=== PATIENT | female | born 1940 | race Caucasian/White ===

== ENCOUNTER → 2017-01-28 | Outpatient (CLI) | payer OTHER ==
[2014-03-01 11:06] VITALS: BP 150/65
--- NOTE | 2017-01-29 15:09 | MG ---
HISTORY: SCREENING Comparison: August 01, 2014 and December 19, 2015 FINDINGS: Bilateral CC and MLO projections of the right and left breast were obtained. Scattered fibroglandul ar tissue is seen to be present without significant interval change. No suspicious architectural di stortion, mass or clustered microcalcifications can be observed to suggest malignancy. No skin thic kening or nipple retraction is appreciated. No pathological lymphadenopathy can be identified. Gaetano ign-appearing calcifications are noted within the right and left breast. A biopsy clip is noted on t he right. IMPRESSION: NO RADIOGRAPHIC EVIDENCE OF MALIGNANCY. ACR CATEGORY 2 - benign findings. FOLLOW-UP EXAM 1 YEAR. Diagnostic CAD was utilized and reviewed. * 0 (ZERO) - ASSESSMENT INCOMPLETE; ADDITIONAL IMAGING IS NEEDED. * 1/1 (ONE) - NEGATIVE. * 2/II (TWO) - BENIGN FINDINGS. * 3/III (THREE) - PROBABLY BENIGN FINDING; SHORT INTERVAL FOLLOW-UP SUGGESTED. * 4/IV (FOUR) - SUSPICIOUS ABNORMALITY; BIOPSY SHOULD BE CONSIDERED. * 5/V (FIVE) - HIGHLY SUSPICIOUS OF MALIGNANCY; BIOPSY SHOULD BE PERFORMED. A NEGATIVE X-RAY REPORT SHOULD NOT DELAY BIOPSY IF A DOMINANT OR CLINICALLY SUSPICIOUS MASS IS PRESENT; 4 TO 8 PERCENT OF CANCERS ARE NOT IDENTIFIED BY X-RAY. A NEG ATIVE REPORT MAY REINFORCE THE CLINICAL IMPRESSION. ADENOSIS AND DENSE BREASTS MAY OBSCURE AN UNDER LYING NEOPLASM. Reported By:
== END ==
LOC: RAD 14:41
PROVIDERS: ATTEND Specialist
DX: Z12.31 Encounter for screening mammogram for malignant neoplasm of breast (principal)
CPT/HCPCS: 77067

== ENCOUNTER → 2017-02-23 | Outpatient (CLI) | payer OTHER ==
[2014-03-01 11:06] VITALS: BP 150/65
--- NOTE | 2017-02-24 06:45 | RAD ---
HISTORY: Chronic cough Study: Chest two-view Comparison: CT chest May 02, 2016 Findings: The trachea is midline. The cardiac silhouette is upper limits normal in size. The left ventricle i s prominent.. The lungs are clear without focal infiltrate or effusion. The bony thorax is unremar kable with the exception of multilevel degenerative disc disease in the thoracic spine.. IMPRESSION: 1. No acute cardiopulmonary disease. Reported By:
== END ==
LOC: RAD 20:37
PROVIDERS: ATTEND Family Medicine
DX: R05 Cough (principal)
CPT/HCPCS: 71020

== ENCOUNTER 2018-02-02 18:24 | Observation (INO) | payer BC, OTHER ==
--- NOTE | 2018-02-02 18:34 | DR.GENAD ---
HPI - PCP Primary Care Physician: ryann - Complaint/Symptoms Chief Complaint Doctors Comments: Patient presents to the ED via EMS with complaint that she fell while at home. Upon of EMS her BP systolic was 46. She was given bolus of NS BP in ED 123/57. Patient is alert in no acute distress. She denies a history of cardiac disease. She complained of bilateral hip pain. Family member reporst that patient has a history of dyspnea. Chief Complaint:: "low bp feeling weak" - Source History Provided: Patient - Mode of Arrival Mode of Arrival: EMS - Timing Onset of Chief Complaint: 02/02/18 PMH - PMH Past Medical History: Yes Past Medical History: Arthritis, Hypertension Past Surgical History: Yes - Family History History of Family Medical Conditions: Yes Family Medical History: Hypertension - Social History Does patient currently use any type of tobacco product: No Have you used tobacco products in the last 12 months: No Type of Tobacco Use: None Does any household member use tobacco: No Alcohol Use: None Do you use any recreational Drugs:: No Lives With: Family Lives Where: Home - infectious screening In the last 2 months have you had wt loss of >10#?: NO Have you had fever, night sweats or hemotysis?: No Have you traveled outside the country in the last 6 months?: No Isolation: Standard ROS - Review of Systems Eyes: No Symptoms Reported ENTM: No Symptoms Reported Respiratoy: No Symptoms Reported Cardiovascular: No Symptoms Reported Gastrointestinal/Abdominal: No Symptoms Reported Genitourinary: No Symptoms Reported Neurological: No Symptoms Reported Musculoskeletal: No Symptoms Reported Integumentary: No Symptoms Reported Hematologic/Lymphatic: No Symptoms Reported Endocrine: No Symptoms Reported Psychiatric: No Symptoms Reported All Other Systems: Reviewed and Negative PE - Vital Signs Vitals: Temperature 98.1 F Pulse Rate [Apical] 92 Pulse Rate 86 Respiratory Rate 24 Blood Pressure [Right Arm] 112/57 Blood Pressure 123/57 O2 Sat by Pulse Oximetry 97 - General Limitations: No Limitations General Appearance: Alert, In No Apparent Distress - Head Head Exam: Normal Inspection, Atraumatic - Eyes Eye exam: Normal Appearance, PERRL, EOMI - ENT ENT Exam: Normal Exam External Ear Exam: Normal External Inspection TM/Canal Exam: Bilateral Normal Nose Exam: Normal Nose Exam Mouth Exam: Normal Inspection Throat Exam: Normal Inspection - Neck Neck Exam: Normal Inspection, Full ROM - Chest Chest Inspection: Normal Inspection, Symmetric Chest Wall Rise - Respiratory Respiratory Exam: Normal Lung Sounds Bilat Respiratory Exam: Bilateral Clear to Auscultation - Cardiovascular Cardiovascular Exam: Regular Rate, Normal Rhythm - Abdominal Exam Abdominal Exam: Normal Inspection, Normal Bowel Sounds Abdominal Tenderness: negative: RUQ, RLQ, LUQ, LLQ, Epigastrium, Suprapubic, Diffuse, Mild, Moderate, Severe, Other - Extremities Extremities Exam: Normal Inspection, Full ROM - Back Back Exam: Normal Inspection - Neurologic Neurological Exam: Alert, Oriented X3, CN II-XII Intact - Psychiatric Psychiatric Exam: Normal Affect, Normal Mood Course - Reevaluation 1st: Improved - Consultation Called: 21:40 (Dr Trotter agreed to admit for further evaluation) ROR - Labs Reviewed Laboratory Results Reviewed?: Yes (low sodiuma, D Dimer 612 ) Result Diagrams: 02/02/18 18:43 02/02/18 18:43 Laboratory: WBC 14.4 X10^3/uL (3.6-10.0) H 02/02/18 18:43 RBC 4.28 X10^6/uL (3.5-5.4) 02/02/18 18:43 Hgb 11.5 g/dL (12.0-16.0) L 02/02/18 18:43 Hct 35.4 % (36.0-47.0) L 02/02/18 18:43 MCV 82.9 fL (80.0-100.0) 02/02/18 18:43 MCH 26.9 pg (27.0-34.0) L 02/02/18 18:43 MCHC 32.5 g/dL (33.0-35.0) L 02/02/18 18:43 RDW 16.4 % (11.6-16.5) 02/02/18 18:43 Plt Count 261 X10^3/uL (150.0-450.0) 02/02/18 18:43 MPV 9.0 fL (7.4-11.0) 02/02/18 18:43 Neut % (Auto) 84.0 % (42.0-75.0) H 02/02/18 18:43 Lymph % (Auto) 7.8 % (21.0-51.0) L 02/02/18 18:43 [place] % (Auto) 7.4 % (0.0-13.0) 02/02/18 18:43 Eos % (Auto) 0.2 % (0.9-2.9) L 02/02/18 18:43 Baso % (Auto) 0.6 % (0.2-1.0) 02/02/18 18:43 Neut # (Auto) 12.1 x10^3/uL (2.2-4.8) H 02/02/18 18:43 Lymph # (Auto) 1.1 X10^3/uL (1.3-2.9) L 02/02/18 18:43 [place] # (Auto) 1.1 x10^3/uL (0.3-0.8) H 02/02/18 18:43 Eos # (Auto) 0.0 x10^3/uL (0.0-0.2) 02/02/18 18:43 Baso # (Auto) 0.1 X10^3/uL (0.0-0.1) 02/02/18 18:43 Absolute Nucleated RBC 0.0 /100WBC 02/02/18 18:43 D-Dimer 612 ng/mL (0-400) H* 02/02/18 18:43 Sodium 131 mmol/L (136-145) L 02/02/18 18:43 Corrected Sodium TNP 02/02/18 18:43 Potassium 3.9 mmol/L (3.5-5.1) 02/02/18 18:43 Chloride 96 mmol/L (98-107) L 02/02/18 18:43 Carbon Dioxide 25.0 mmol/L (21-32) 02/02/18 18:43 BUN 17 mg/dL (7-18) 02/02/18 18:43 Creatinine 1.37 mg/dL (0.55-1.02) H 02/02/18 18:43 Est GFR (MDRD) Af Amer 48 (>60) L 02/02/18 18:43 Est GFR (MDRD) Non-Af 39 (>60) L 02/02/18 18:43 Glucose 105 mg/dL (65-99) H 02/02/18 18:43 Calcium 8.1 mg/dL (8.5-10.1) L 02/02/18 18:43 Corrected Calcium 8.9 mg/dL (8.5-10.1) 02/02/18 18:43 Magnesium 1.7 mg/dL (1.7-2.9) 02/02/18 18:43 Total Bilirubin 0.50 mg/dL (0.2-1.0) 02/02/18 18:43 AST 44 Units/L (15-37) H 02/02/18 18:43 ALT 35 Units/L (12-78) 02/02/18 18:43 Alkaline Phosphatase 109 Units/L (46-116) 02/02/18 18:43 Creatine Kinase 105 Units/L (26-192) 02/02/18 18:43 CK-MB (CK-2) 1.0 ng/mL (0-4.0) 02/02/18 18:43 CK/CKMB % Calc 1.0 % (<4) 02/02/18 18:43 Troponin I < 0.02 ng/mL (0-1.5) 02/02/18 18:43 Total Protein 7.0 g/dL (6.4-8.2) 02/02/18 18:43 Albumin 3.0 g/dL (3.4-5.0) L 02/02/18 18:43 Globulin 4.0 g/dL (2.5-4.5) 02/02/18 18:43 Albumin/Globulin Ratio 0.8 Ratio (1.1-2.1) L 02/02/18 18:43 - XRAY XRAY Interpreted by: Radiologist (CT Brain w/o: Age related cortical atrophy and chronic small vessel ischemic changes.. No acute intraparenchymal hemorrhage or mass can be identified. If clinical concern exists for acute ischemia/infarction, MRI brain is more sensitive.) - Diagnosis Discharge Problem: Hyponatremia, D-dimer, elevated Syncope Qualifiers: Syncope type: unspecified Qualified Code(s): R55 - Syncope and collapse Dyspnea Qualifiers: Dyspnea type: shortness of breath Qualified Code(s): R06.02 - Shortness of breath; R06.00 - Dyspnea, unspecified; R06.01 - Orthopnea - Discharge Plan Condition: Stable - Follow ups/Referrals Follow ups/Referrals: LIZETTE JORDAN [Primary Care Provider] - 3 days - Instructions
[2018-02-02 18:51] LABS: BASOPHILS # (AUTO) 0.1 X10^3/uL (0.0-0.1); BASOPHILS % (AUTO) 0.6 % (0.2-1.0); EOSINOPHILS % (AUTO) 0.2 % (0.9-2.9); HEMATOCRIT 35.4 % (36.0-47.0); HEMOGLOBIN 11.5 g/dL (12.0-16.0); LYMPHOCYTES # (AUTO) 1.1 X10^3/uL (1.3-2.9); LYMPHOCYTES % (AUTO) 7.8 % (21.0-51.0); MEAN CORPUSCULAR HEMOGLOBIN 26.9 pg (27.0-34.0); MEAN CORPUSCULAR HGB CONC 32.5 g/dL (33.0-35.0); MEAN CORPUSCULAR VOLUME 82.9 fL (80.0-100.0); MONOCYTES # (AUTO) 1.1 x10^3/uL (0.3-0.8); MONOCYTES % (AUTO) 7.4 % (0.0-13.0); NEUTROPHILS # (AUTO) 12.1 x10^3/uL (2.2-4.8); PLATELET COUNT 261 X10^3/uL (150.0-450.0); RED BLOOD COUNT 4.28 X10^6/uL (3.5-5.4); RED CELL DISTRIBUTION WIDTH 16.4 % (11.6-16.5); WHITE BLOOD COUNT 14.4 X10^3/uL (3.6-10.0)
[2018-02-02 19:07] LABS: BLOOD UREA NITROGEN 17 mg/dL (7-18); CALCIUM 8.1 mg/dL (8.5-10.1); CHLORIDE 96 mmol/L (98-107); CREATININE 1.37 mg/dL (0.55-1.02); SODIUM 131 mmol/L (136-145); TROPONIN I < 0.02 ng/mL (0-1.5); eGFR BLACK RACES 48 (>60); eGFR NON BLACK RACES 39 (>60)
[2018-02-02 19:11] LABS: ALANINE AMINOTRANSFERASE 35 Units/L (12-78); ALKALINE PHOSPHATASE 109 Units/L (46-116); ASPARTATE AMINO TRANSFERASE 44 Units/L (15-37); COR CA(FOR HYPOALB) 8.9 mg/dL (8.5-10.1); CREATINE KINASE 105 Units/L (26-192); MAGNESIUM 1.7 mg/dL (1.7-2.9)
--- NOTE | 2018-02-02 19:26 | CT ---
HISTORY: Hypertensive status post fall. Study: CT brain without contrast Comparison: None. Technique: Multiple axial images of the brain were obtained from the skull base to the vertex without administra tion of IV contrast. Dose reduction techniques including Automated Exposure Control (AEC) and adjust ment of mA and kV were utilized. Findings: Age-related cortical atrophy and chronic small vessel ischemic changes. No acute intraparenchymal hem orrhage or mass can be identified. No extra-axial fluid collections are seen. No alteration in the attenuation of the brain parenchyma can be identified to suggest acute or subacute ischemic change. The ventricular system is symmetric and nondilated. The extracranial structures are grossly unremark able. IMPRESSION: No obvious acute intracranial pathology. If clinical concern exists for acute ischemia/in farction, MRI brain is more sensitive. Reported By:
--- NOTE | 2018-02-02 20:57 | RAD ---
HISTORY: Bilateral hip pain status post fall. Study: Two views of the bilateral hips. Comparison: None. Findings: Mild osteoarthritis of the bilateral hips. Degenerative changes are also seen of the bilateral SI hayder nts and visualized lumbar spine. No acute cortical disruption or dislocation can be identified. No s ignificant soft tissue swelling or injury can be seen. IMPRESSION: No acute osseous abnormality. Reported By:
--- NOTE | 2018-02-02 22:06 | RAD ---
AP chest. Indication: Hypertension with fall. Comparison: 02/23/2017. Findings: There is mild scolios is of the thoracic spine with curvature of the right. Heart size is mildly enlarged. Chronic intersti tial lung change are noted without focal airspace opacity, pleural effusion or pneumothorax. No acute osseous abnormality. Moderate-size sliding hiatal hernia. Impression: 1.Stable cardiomegaly and chronic interstitial lung changes without acute airspace disease or CHF. 2. Moderate-sized hiatal hernia. Reported By:
[2018-02-02 22:11] LABS: BILIRUBIN,URINE NEGATIVE (NEGATIVE); BLOOD/HEMOGLOBIN,URINE NEGATIVE (NEGATIVE); GLUCOSE, URINE NEGATIVE (NEGATIVE); KETONES,URINE NEGATIVE (NEGATIVE); LEUKOCYTE ESTERASE ,URINE NEGATIVE (NEGATIVE); NITRITES,URINE NEGATIVE (NEGATIVE); PROTEIN,URINE NEGATIVE (NEGATIVE); UROBILINOGEN,URINE NORMAL (NORMAL)
[2018-02-02 22:12] LABS: APPEARANCE,URINE CLEAR (CLEAR); COLOR,URINE YELLOW (YELLOW)
[2018-02-02] MEDS ORDERED: ZOFRAN INJ 4 MG VIAL IVP PRN (22:22)
[2018-02-02] MEDS ORDERED: DEMEROL INJ IVP PRN (22:55)
[2018-02-02] MEDS ORDERED: XANAX PO PRN (22:56)
[2018-02-02] MEDS: NS 1000 ML 1,000 ML IV SCH (23:37)
[2018-02-03 00:58] VITALS: BMI 28.0
[2018-02-03 05:51] LABS: BASOPHILS % (AUTO) 0.3 % (0.2-1.0); EOSINOPHILS % (AUTO) 0.3 % (0.9-2.9); HEMATOCRIT 32.1 % (36.0-47.0); HEMOGLOBIN 10.7 g/dL (12.0-16.0); LYMPHOCYTES # (AUTO) 1.7 X10^3/uL (1.3-2.9); LYMPHOCYTES % (AUTO) 13.5 % (21.0-51.0); MEAN CORPUSCULAR HEMOGLOBIN 27.4 pg (27.0-34.0); MEAN CORPUSCULAR HGB CONC 33.3 g/dL (33.0-35.0); MEAN CORPUSCULAR VOLUME 82.2 fL (80.0-100.0); MEAN PLATELET VOLUME 9.3 fL (7.4-11.0); MONOCYTES # (AUTO) 0.9 x10^3/uL (0.3-0.8); MONOCYTES % (AUTO) 7.2 % (0.0-13.0); NEUTROPHILS # (AUTO) 9.7 x10^3/uL (2.2-4.8); NEUTROPHILS % (AUTO) 78.7 % (42.0-75.0); PLATELET COUNT 243 X10^3/uL (150.0-450.0); RED CELL DISTRIBUTION WIDTH 16.4 % (11.6-16.5); WHITE BLOOD COUNT 12.3 X10^3/uL (3.6-10.0)
[2018-02-03 05:54] LABS: ALANINE AMINOTRANSFERASE 30 Units/L (12-78); ALBUMIN 2.6 g/dL (3.4-5.0); ALKALINE PHOSPHATASE 97 Units/L (46-116); ASPARTATE AMINO TRANSFERASE 27 Units/L (15-37); BLOOD UREA NITROGEN 11 mg/dL (7-18); CARBON DIOXIDE 26.6 mmol/L (21-32); CHLORIDE 100 mmol/L (98-107); COR CA(FOR HYPOALB) 9.1 mg/dL (8.5-10.1); CREATININE 0.86 mg/dL (0.55-1.02); SODIUM 135 mmol/L (136-145); TOTAL PROTEIN 6.4 g/dL (6.4-8.2); eGFR BLACK RACES > 60 (>60); eGFR NON BLACK RACES > 60 (>60)
[2018-02-03] MEDS: NEURONTIN CAP 300 MG PO SCH ×3 (06:33→21:06)
[2018-02-03] MEDS: MILK OF MAGNESIA PO SCH ×2 (06:33→21:29)
[2018-02-03] MEDS: COLACE CAP 100 MG PO SCH ×2 (06:33→21:29)
[2018-02-03] MEDS: PREVACID PO SCH ×2 (07:45→21:06)
[2018-02-03] MEDS ORDERED: PATIENT'S HOME MEDICATION (Celecoxib [Celecoxib] 200 MG) PO SCH (09:00)
[2018-02-03] MEDS ORDERED: [UNRECOGNIZED DRUG - OTHER] PO SCH (09:00)
[2018-02-03] MEDS ORDERED: HYDROCHLOROTHIAZIDE PO SCH (09:00)
[2018-02-03] MEDS ORDERED: LOSARTAN PO SCH (09:00)
[2018-02-03] MEDS: HYZAAR 50/12.5 MG PO SCH (09:27)
[2018-02-03] MEDS: CELEBREX PO SCH ×2 (09:27→21:06)
[2018-02-03] MEDS: COREG TAB 6.25 MG PO SCH ×2 (09:27→21:05)
[2018-02-03] MEDS: NS 1000 ML 1,000 ML IV SCH (12:48)
--- NOTE | 2018-02-03 15:55 | CT ---
HISTORY: Elevated D-dimer. Rule out PE. Study: CT chest with contrast Comparison: Chest x-ray dated February 02, 2018. Technique: Multiple axial images of the chest were obtained from the thoracic inlet to the upper abdo men after the administration of IV contrast. MIP images were obtained. Dose reduction techniques incl uding Automated Exposure Control (AEC) and adjustment of mA and kV were utilized. Findings: The mediastinum does not demonstrate significant pathological lymphadenopathy. There is no paracardi al effusion observed. The thoracic aorta is normal in its contour without evidence for aneurysmal di latation. The central pulmonary arterial system does not demonstrate central filling defects to sugg est pulmonary emboli. Cardiomegaly. Stents are seen within the left anterior descending coronary gagan ry. Biapical scarring. Bibasilar scarring versus atelectasis. No obvious pulmonary nodule, mass, pleural effusion, focal consolidation, or pneumothorax. Moderate-sized hiatal hernia. Remaining upper abdomin al structures are unremarkable. Moderate to severe degenerative changes of the spine. No aggressive o sseous lesions. IMPRESSION: 1. No CT evidence of acute thoracic pathology or pulmonary embolus. 2. Other chronic findings as above. Reported By:
[2018-02-03] MEDS ORDERED: K-LYTE EFFERVESCENT PO PRN (21:25)
[2018-02-03] MEDS ORDERED: K-RIDER 10 MEQ/NS 100 ML 10 MEQ/100 ML BAG IV PRN (21:25)
[2018-02-03] MEDS ORDERED: POTASSIUM CHL 40 MEQ/NS 0.45% 500 ML IV PRN (21:25)
[2018-02-03] MEDS ORDERED: POTASSIUM CHL 60 MEQ/NS 0.45% 500 ML IV PRN (21:25)
[2018-02-03] MEDS ORDERED: POTASSIUM CHLORIDE LIQ 20 MEQ UDC PO PRN (21:25)
--- NOTE | 2018-02-03 21:45 | DR.H&P ---
H&P - History & Physical for Day of: H&P Date: 02/02/18 - Chief Complaint Chief Complaint: FALL, GENERALIZED WEAKNESS, SHORT OF BREATH - Allergies Allergies/Adverse Reactions: Allergies Allergy/AdvReac Type Severity Reaction Status Date / Time codeine Allergy Verified 02/02/18 21:24 - History of Present Illness History of Present Illness: is a 78 year old patient of who presented to the emergency room via EMS with reports of a fall at home. Patient reports generalized weakness and dizziness throughout the day. EMS reports that patients systolic blood pressure was in the 40s on their arrival. Patient states her blood pressure has been decreased recently. She also reports bilateral hip pain following the fall. Medical History includes: Cataracts, Hypertension, IBS, Constipation, Muscle Weakness, Arthritis, DDD, Depression, and Dyspnea. On arrival to the emergency room, vitals were 98.1, 86 , 16, 99% 2L NC, 123/57. Labs were obtained. Abnormal Labs include the following : WBC 14.4, Hgb 11.5, Hct 35.4, MCH 26.9, MCHC 32.5, D-Dimer 612, Sodium 131, Chloride 96, Creatinine 1.37, GFR af 48, GFR non 39, Glucose 105, Calcium 8.1, AST 44, Albumin 3.0, A/G Ratio 0.8. EKG revealed: Sinus Rhythm, Rate=86. Hip X- Ray reports: No acute osseous abnormality. A Chest X-Ray was obtained and reported: Stable cardiomegaly and chronic interstitial lung changes without acute airspace disease or CHF. Moderate-sized hiatal hernia. Brain CT reported : No obvious acute intracranial pathology. If clinical concern exists for acute ischemia/infarction, MRI brain is more sensitive. Patient admitted to the hospital as observation for a syncopal episode, hyponatremia, and to rule out a pulmonary embolism. We plan to obtain a chest CT with contrast in the morning and will follow up with am labs. - Past Medical History Past Medical History: Arthritis, Hypertension - Past Surgical History Surgical History: Hysterectomy, Tonsillectomy - Family History Family Medical History: Hypertension - Social History Does patient currently use any type of tobacco product: No Have you used tobacco products in the last 12 months: No Type of Tobacco Use: None Does any household member use tobacco: No Alcohol Use: None Drug Use: None - Medications Home Medications: Alprazolam [Xanax] 0.5 mg PO HS PRN 02/02/18 [History Confirmed 02/03/18] Carvedilol [Coreg Tab 6.25 mg] 6.25 mg PO BID 02/02/18 [History Confirmed ] Celecoxib 200 mg PO BID 02/02/18 [History Confirmed 02/03/18] Gabapentin [Neurontin Cap 300 mg] 300 mg PO TID 02/02/18 [History Confirmed ] Lansoprazole [Lansoprazole 30 mg] 30 mg PO BID 02/02/18 [History Confirmed 02/03] Losartan/Hydrochlorothiazide [Losartan-Hctz 100-25 mg Tab] 1 each PO DAILY 02/02 [History Confirmed 02/03/18] Amoxicillin/Potassium Clav [Amox-Clav 875-125 mg Tablet] 1 tab PO BID 02/03/18 [ History Confirmed 02/03/18] Atorvastatin Calcium [Atorvastatin Calcium] 1 tab PO DAILY 02/03/18 [History Confirmed 02/03/18] Estradiol [Estradiol] 1 tab PO DAILY 02/03/18 [History Confirmed 02/03/18] Tapentadol HCl [Nucynta] 1 tab PO Q6H 02/03/18 [History Confirmed 02/03/18] - Physical Exam Vital Signs: Temperature 97.3 F Pulse Rate [Apical] 77 Pulse Rate 86 Respiratory Rate 18 Blood Pressure [Right Arm] 127/57 Blood Pressure 123/57 O2 Sat by Pulse Oximetry 99
[2018-02-04] MEDS: NS 1000 ML 1,000 ML IV SCH (02:40)
[2018-02-04] MEDS: NEURONTIN CAP 300 MG PO SCH (06:21)
[2018-02-04 06:39] LABS: BASOPHILS % (AUTO) 0.4 % (0.2-1.0); EOSINOPHILS # (AUTO) 0.2 x10^3/uL (0.0-0.2); EOSINOPHILS % (AUTO) 1.6 % (0.9-2.9); HEMATOCRIT 29.9 % (36.0-47.0); LYMPHOCYTES # (AUTO) 1.4 X10^3/uL (1.3-2.9); LYMPHOCYTES % (AUTO) 13.5 % (21.0-51.0); MEAN CORPUSCULAR HEMOGLOBIN 27.8 pg (27.0-34.0); MEAN CORPUSCULAR HGB CONC 33.6 g/dL (33.0-35.0); MEAN CORPUSCULAR VOLUME 82.7 fL (80.0-100.0); MEAN PLATELET VOLUME 9.2 fL (7.4-11.0); MONOCYTES # (AUTO) 0.8 x10^3/uL (0.3-0.8); NEUTROPHILS # (AUTO) 7.7 x10^3/uL (2.2-4.8); NEUTROPHILS % (AUTO) 76.5 % (42.0-75.0); PLATELET COUNT 227 X10^3/uL (150.0-450.0); RED BLOOD COUNT 3.61 X10^6/uL (3.5-5.4); RED CELL DISTRIBUTION WIDTH 16.9 % (11.6-16.5); WHITE BLOOD COUNT 10.1 X10^3/uL (3.6-10.0)
[2018-02-04 06:54] LABS: ALANINE AMINOTRANSFERASE 27 Units/L (12-78); ALBUMIN 2.3 g/dL (3.4-5.0); ALKALINE PHOSPHATASE 92 Units/L (46-116); ASPARTATE AMINO TRANSFERASE 17 Units/L (15-37); BLOOD UREA NITROGEN 10 mg/dL (7-18); CALCIUM 7.8 mg/dL (8.5-10.1); CARBON DIOXIDE 24.2 mmol/L (21-32); CHLORIDE 103 mmol/L (98-107); COR CA(FOR HYPOALB) 9.2 mg/dL (8.5-10.1); CREATININE 0.72 mg/dL (0.55-1.02); SODIUM 136 mmol/L (136-145); TOTAL PROTEIN 5.9 g/dL (6.4-8.2); eGFR BLACK RACES > 60 (>60); eGFR NON BLACK RACES > 60 (>60)
--- NOTE | 2018-02-04 06:56 | RAD ---
HISTORY: Shortness of breath Study: Chest AP portable Comparison: 02/02/2018 plain film and CTA chest Findings: The heart remains enlarged. No congestive heart failure is noted. The lungs are mildly hypo inflated but free of acute infiltrates. No pleural effusions are identified. The bony thorax is unremarkable. The bony thorax appears intact. IMPRESSION: Moderate cardiomegaly without congestive heart failure Lungs hypo inflated but clear Reported By:
[2018-02-04] MEDS: HYZAAR 50/12.5 MG PO SCH (09:38)
[2018-02-04] MEDS: PREVACID PO SCH (09:38)
[2018-02-04] MEDS: COREG TAB 6.25 MG PO SCH (09:38)
[2018-02-04] MEDS: CELEBREX PO SCH (09:38)
[2018-02-04 11:44] VITALS: BP 104/51
== END 2018-02-04 12:35 | disposition home health service (06) ==
LOC: ER 18:31 → ICU 22:19
PROVIDERS: ADMIT Internal Medicine; ATTEND Internal Medicine
DX: R55 Syncope and collapse (principal); E87.1 Hypo-osmolality and hyponatremia; M25.552 Pain in left hip; M25.551 Pain in right hip; W18.39XA Other fall on same level, initial encounter; R79.1 Abnormal coagulation profile; R06.02 Shortness of breath; R94.31 Abnormal electrocardiogram [ECG] [EKG]; R53.1 Weakness; R94.4 Abnormal results of kidney function studies; R26.89 Other abnormalities of gait and mobility; I10 Essential (primary) hypertension
CPT/HCPCS: 36415; 70450; 71045; 71275; 73521; 80053; 81003; 82550; 82553; 83735; 84484; 85025; 85378; 93005; 96365; 99284; A4216; G8987; G8988; G0378; J2175

== ENCOUNTER 2019-01-23 07:45 | Inpatient (IN) ==
--- NOTE | 2019-01-23 08:58 | DR.GENAD ---
HPI Time Seen Time Seen by Provider: 01/23/19 08:19 PCP Primary Care Physician: BRIDGET Complaint/Symptoms Chief Complaint:: PT C/O DIZZINESS, NAUSEA, BODY ACHES AND CHILLS. PT STATES SHE HAS BEEN HAVING ISSUES FOR THE PAST 6 WEEKS AND HAS BEEN BEING SEEN BY HER PCP. PT STATES SHE WAS SEEN LAST IN THE OFFICE THIS PAST THURSDAY AND WAS STARTED ON MEDICATIONS. PT STATES SHE IS JUST GETTING WORSE AND DEVELOPING WORSE SYMPTOMS THROUGHOUT THE COURSE OF A FEW DAYS. Source History Provided: Patient and Family Member Mode of Arrival Mode of Arrival: Wheelchair Timing Onset of Chief Complaint: 12/09/18 PMH PMH Past Medical History: Yes Past Medical History: Arthritis and Hypertension Past Surgical History: Yes Surgical History: Angioplasty/Stents, Hysterectomy and Tonsillectomy Family History History of Family Medical Conditions: Yes Family Medical History: Hypertension Social History Does any household member use tobacco: No Alcohol Use: None Do you use any recreational Drugs:: No Lives With: Family Lives Where: Home infectious screening In the last 2 months have you had wt loss of >10#?: NO Have you had fever, night sweats or hemotysis?: No Have you traveled outside the country in the last 6 months?: No Isolation: Standard PE Vital Signs Vitals: Temperature 98.0 F Pulse Rate [Left Radial] 74 Pulse Rate 73 Respiratory Rate 20 Blood Pressure [Left Arm] 146/94 Blood Pressure [Right Arm] 135/72 Blood Pressure 185/77 O2 Sat by Pulse Oximetry 94 General Limitations: No Limitations General Appearance: Alert and In No Apparent Distress Head Head Exam: Normal Inspection, Atraumatic and Normocephalic Eyes Eye exam: Normal Appearance, PERRL and EOMI ENT ENT Exam: Normal Exam, Normal Oropharynx and Normal External Ear Exam External Ear Exam: Normal External Inspection and Auricular Hematoma TM/Canal Exam: Bilateral: Normal Nose Exam: Normal Nose Exam and Sinus Tenderness Mouth Exam: Normal Inspection Neck Neck Exam: Normal Inspection and Full ROM Chest Chest Inspection: Normal Inspection, Symmetric Chest Wall Rise and Tenderness Respiratory Respiratory Exam: Normal Lung Sounds Bilat Respiratory Exam: Bilateral: Clear to Auscultation Cardiovascular Cardiovascular Exam: Regular Rate and Normal Rhythm Abdominal Exam Abdominal Exam: Normal Inspection, Normal Bowel Sounds and Soft Abdominal Tenderness: RUQ Extremities Extremities Exam: Normal Inspection and Full ROM Back Back Exam: Normal Inspection Neurologic Neurological Exam: Alert, Oriented X3 and CN II-XII Intact Psychiatric Psychiatric Exam: Normal Affect and Normal Mood Skin Skin Exam: Warm, Dry and Intact COURSE Reevaluation 1st: Unchanged Consultation Called: 09:50 Consultation Comments: Dr. Yanez agreed to admits for further treatment of hyponatremia ROR Labs Reviewed Laboratory Results Reviewed?: Yes Result Diagrams: 01/24/19 04:57 01/23/19 09:06 Laboratory: WBC 7.2 X10^3/uL (3.6-10.0) 01/24/19 04:57 RBC 4.25 X10^6/uL (3.5-5.4) 01/24/19 04:57 Hgb 12.3 g/dL (12.0-16.0) 01/24/19 04:57 Hct 36.8 % (36.0-47.0) 01/24/19 04:57 MCV 86.7 fL (80.0-100.0) 01/24/19 04:57 MCH 28.9 pg (27.0-34.0) 01/24/19 04:57 MCHC 33.3 g/dL (33.0-35.0) 01/24/19 04:57 RDW 15.6 % (11.6-16.5) 01/24/19 04:57 Plt Count 305 X10^3/uL (150.0-450.0) 01/24/19 04:57 MPV 8.4 fL (7.4-11.0) 01/24/19 04:57 Neut % (Auto) 58.5 % (42.0-75.0) 01/24/19 04:57 Lymph % (Auto) 27.9 % (21.0-51.0) 01/24/19 04:57 [place] % (Auto) 11.9 % (0.0-13.0) 01/24/19 04:57 Eos % (Auto) 1.2 % (0.9-2.9) 01/24/19 04:57 Baso % (Auto) 0.5 % (0.2-1.0) 01/24/19 04:57 Neut # (Auto) 4.2 x10^3/uL (2.2-4.8) 01/24/19 04:57 Lymph # (Auto) 2.0 X10^3/uL (1.3-2.9) 01/24/19 04:57 [place] # (Auto) 0.9 x10^3/uL (0.3-0.8) H 01/24/19 04:57 Eos # (Auto) 0.1 x10^3/uL (0.0-0.2) 01/24/19 04:57 Baso # (Auto) 0.0 X10^3/uL (0.0-0.1) 01/24/19 04:57 Absolute Nucleated RBC 0.1 /100WBC 01/24/19 04:57 Sodium 122 mmol/L (136-145) L* 01/23/19 09:06 Corrected Sodium TNP 01/23/19 09:06 Potassium 4.4 mmol/L (3.5-5.1) 01/23/19 09:06 Chloride 88 mmol/L (98-107) L 01/23/19 09:06 Carbon Dioxide 26.2 mmol/L (21-32) 01/23/19 09:06 BUN 15 mg/dL (7-18) 01/23/19 09:06 Creatinine 0.97 mg/dL (0.55-1.02) 01/23/19 09:06 Est GFR (MDRD) Af Amer > 60 (>60) 01/23/19 09:06 Est GFR (MDRD) Non-Af 59 (>60) 01/23/19 09:06 Glucose 100 mg/dL (65-99) H 01/23/19 09:06 Calcium 8.9 mg/dL (8.5-10.1) 01/23/19 09:06 Corrected Calcium TNP 01/23/19 09:06 Total Bilirubin 0.50 mg/dL (0.2-1.0) 01/23/19 09:06 AST 19 Units/L (15-37) 01/23/19 09:06 ALT 24 Units/L (12-78) 01/23/19 09:06 Alkaline Phosphatase 71 Units/L (46-116) 01/23/19 09:06 C-Reactive Protein 1.30 mg/L (0-3.0) 01/23/19 09:06 Total Protein 7.0 g/dL (6.4-8.2) 01/23/19 09:06 Albumin 3.6 g/dL (3.4-5.0) 01/23/19 09:06 Globulin 3.4 g/dL (2.5-4.5) 01/23/19 09:06 Albumin/Globulin Ratio 1.1 Ratio (1.1-2.1) 01/23/19 09:06 Specimen Type Clean catch urine 01/23/19 08:35 Urine Color Straw (YELLOW) 01/23/19 08:35 Urine Appearance Clear (CLEAR) 01/23/19 08:35 Urine pH 7.0 (5.0 - 8.0) 01/23/19 08:35 Ur Specific [place] 1.010 (1.000-1.030) 01/23/19 08:35 Urine Protein Negative (NEGATIVE) 01/23/19 08:35 Urine Glucose (UA) Negative (NEGATIVE) 01/23/19 08:35 Urine Ketones Negative (NEGATIVE) 01/23/19 08:35 Urine Occult Blood Negative (NEGATIVE) 01/23/19 08:35 Urine Nitrite Negative (NEGATIVE) 01/23/19 08:35 Urine Bilirubin Negative (NEGATIVE) 01/23/19 08:35 Urine Urobilinogen Normal (NORMAL) 01/23/19 08:35 Ur Leukocyte Esterase Negative (NEGATIVE) 01/23/19 08:35 Other Results Comments: sinus series: negative. Chest: No acute cardiopulmonary disease Diagnosis Discharge Problem: Hyponatremia
[2019-01-23 09:02] LABS: BILIRUBIN,URINE NEGATIVE (NEGATIVE); BLOOD/HEMOGLOBIN,URINE NEGATIVE (NEGATIVE); GLUCOSE, URINE NEGATIVE (NEGATIVE); KETONES,URINE NEGATIVE (NEGATIVE); LEUKOCYTE ESTERASE ,URINE NEGATIVE (NEGATIVE); NITRITES,URINE NEGATIVE (NEGATIVE); PROTEIN,URINE NEGATIVE (NEGATIVE); UROBILINOGEN,URINE NORMAL (NORMAL)
[2019-01-23 09:03] LABS: COLOR,URINE STRAW (YELLOW)
[2019-01-23 09:04] LABS: APPEARANCE,URINE CLEAR (CLEAR)
[2019-01-23 09:27] LABS: BLOOD UREA NITROGEN 15 mg/dL (7-18); CALCIUM 8.9 mg/dL (8.5-10.1); CARBON DIOXIDE 26.2 mmol/L (21-32); CHLORIDE 88 mmol/L (98-107); CREATININE 0.97 mg/dL (0.55-1.02); eGFR NON BLACK RACES 59 (>60)
[2019-01-23 09:32] LABS: ALANINE AMINOTRANSFERASE 24 Units/L (12-78); ALBUMIN 3.6 g/dL (3.4-5.0); ALKALINE PHOSPHATASE 71 Units/L (46-116); ASPARTATE AMINO TRANSFERASE 19 Units/L (15-37)
--- NOTE | 2019-01-23 09:38 | CT ---
HISTORY: Sinusitis Study: CT paranasal sinuses without contrast Comparison: None Technique: Multiple axial images of the paranasal sinuses were obtained without the administration of IV contrast. Coronal and sagittal reformats were performed and reviewed. Findings: The maxillary sinuses, anterior and posterior ethmoid air cells, sphenoid sinuses, and frontal sinuses demonstrate no evidence for mucosal inflammatory disease. The nasal septum is midline. The ostiomeatal unit on the right and left are widely patent without inflammatory change. The left and right frontal recesses are unremarkable in their appearance. Visualized portions of the posterior fossa and intracranial structures are unremarkable as well. IMPRESSION: 1. Unremarkable CT of the paranasal sinuses. Reported By:
[2019-01-23 09:42] LABS: SODIUM 122 mmol/L (136-145)
[2019-01-23 09:46] LABS: BASOPHILS % (AUTO) 0.2 % (0.2-1.0); HEMATOCRIT 37.2 % (36.0-47.0); HEMOGLOBIN 12.5 g/dL (12.0-16.0); LYMPHOCYTES # (AUTO) 1.2 X10^3/uL (1.3-2.9); LYMPHOCYTES % (AUTO) 13.7 % (21.0-51.0); MEAN CORPUSCULAR HEMOGLOBIN 29.1 pg (27.0-34.0); MEAN CORPUSCULAR HGB CONC 33.6 g/dL (33.0-35.0); MEAN CORPUSCULAR VOLUME 86.6 fL (80.0-100.0); MEAN PLATELET VOLUME 8.3 fL (7.4-11.0); MONOCYTES # (AUTO) 0.6 x10^3/uL (0.3-0.8); MONOCYTES % (AUTO) 6.5 % (0.0-13.0); NEUTROPHILS # (AUTO) 6.7 x10^3/uL (2.2-4.8); NEUTROPHILS % (AUTO) 79.6 % (42.0-75.0); PLATELET COUNT 308 X10^3/uL (150.0-450.0); RED BLOOD COUNT 4.29 X10^6/uL (3.5-5.4); RED CELL DISTRIBUTION WIDTH 15.4 % (11.6-16.5); WHITE BLOOD COUNT 8.5 X10^3/uL (3.6-10.0)
--- NOTE | 2019-01-23 10:19 | RAD ---
HISTORY: Dizziness and hyponatremia Study: Single-view chest Comparison: 02/04/2018 Findings: The trachea is midline. The cardiac silhouette is stable. The lungs are clear without focal infiltrate or effusion. The bony thorax is unremarkable. IMPRESSION: 1. No acute cardiopulmonary disease. Reported By:
[2019-01-23] MEDS ORDERED: HYZAAR 50/12.5 MG PO SCH (11:00)
[2019-01-23] MEDS ORDERED: PHARMACY CONSULT - TPN XX SCH (11:00)
[2019-01-23] MEDS ORDERED: PHARMACY CONSULT - DOSE _____ XX SCH (11:00)
[2019-01-23] MEDS ORDERED: NS 1000 ML 1,000 ML ONE ×2 (11:03→18:49)
[2019-01-23] MEDS ORDERED: PATIENT'S HOME MEDICATION (Losartan-Hydrochlorothiazide [Losartan-Hydrochlorothiazide] 1 T PO SCH (11:13)
[2019-01-23] MEDS ORDERED: PATIENT'S HOME MEDICATION (Fluticasone-Umeclidin-Vilanter [Trelegy Ellipta] 1 INH) IN SCH (11:13)
[2019-01-23] MEDS ORDERED: ZOFRAN TAB 4 MG PO PRN (11:13)
[2019-01-23] MEDS: NS 1000 ML 1,000 ML IV SCH ×4 (11:19→22:28)
[2019-01-23] MEDS: DUONEB 0.5 MG/3 MG NEB SCH ×3 (12:51→20:48)
[2019-01-23] MEDS: TAPENTADOL PO SCH ×3 (13:04→22:26)
[2019-01-23] MEDS: COZAAR PO SCH (13:25)
[2019-01-23] MEDS: NEURONTIN CAP 300 MG PO SCH ×2 (13:30→22:23)
--- NOTE | 2019-01-23 15:21 | DR.H&P ---
H&P - History & Physical for Day of: H&P Date: 01/23/19 - Chief Complaint Chief Complaint: dizziness, weakness, nauseated - History of Present Illness History of Present Illness: 78 WF ER ADMISSION AFTER PRESENTING WITH CO DIZZINESS, NAUSEA, BODY ACHES AND CHILLS. PT STATES SHE HAS BEEN HAVING ISSUES FOR THE PAST 6 WEEKS AND HAS BEEN BEING SEEN BY HER PCP. PT STATES SHE WAS SEEN LAST IN THE OFFICE THIS PAST THURSDAY AND WAS STARTED ON MEDICATIONS. PT STATES SHE IS JUST GETTING WORSE AND DEVELOPING WORSE SYMPTOMS THROUGHOUT THE COURSE OF A FEW DAYS. PT NA 89 IN ER. PT HAS BEEN ON ANTIHYPERTENSIVE WITH HCTZ. PT ADMITTED FOR TREATMENT OF ACUTE HYPONATREMIA. - Past Medical History Past Medical History: Hypertension, Arthritis - Past Surgical History Surgical History: Angioplasty/Stents, Hysterectomy, Tonsillectomy - Family History Family Medical History: Hypertension - Social History Does any household member use tobacco: No Alcohol Use: None - Medications Home Medications: codeine Allergy (Verified 02/02/18 21:24) CONTINUE taking the following medications cefdinir 300 mg PO Q12H 01/23/19 [History] fluticasone propionate [Flonase Allergy Relief] 1 spray INTRANASAL BID 01/23/19 [History] myhqexotygi-uzvtrwmat-[id number] [Trelegy Ellipta] 1 inh INHALATION QDAY 01/23/19 [History] guaifenesin [Mucinex] 600 mg PO Q12H 01/23/19 [History] methylprednisolone 0 tab PO PER PKG DIR 01/23/19 [History] ondansetron 4 mg PO Q4-6H PRN 01/23/19 [History] - Review of Systems Constitutional: Weakness Eyes: No Symptoms Reported ENT: No Symptoms Reported Respiratory: No Symptoms Reported Cardiovascular: No Symptoms Reported Gastrointestinal: Nausea, Vomiting Genitourinary: No Symptoms Reported Musculoskeletal: Back Pain, Leg Pain Skin: No Symptoms Reported Neurological: Weakness, Other (DIZZINESS) - Physical Exam Vital Signs: Temperature 98.1 F Pulse Rate [Left Radial] 65 Pulse Rate 68 Respiratory Rate 18 Blood Pressure [Left Arm] 160/70 Blood Pressure [Right Arm] 130/89 Blood Pressure 185/77 O2 Sat by Pulse Oximetry 95 Oriented: Normal Eyes: Normal Ear: Normal Nose: Normal Throat: Normal Respiratory: RLL Diminished, LLL Diminished Cardiovascular: Normal : Normal Auscultation: Bowel Sounds: Normal Palpation: Normal Skin: Decreased Turgur Musculoskeletal: Back:Thoracic, Back:Lumbar Psychiatric: Anxiety Affect: Angry Speech Pattern: Clear, Appropriate - Assessment/Plan (1) Hyponatremia Status: Acute Plan: ADMIT, BP CONTROL. GENTLE IV HYDRATION. CXR ON ADMISSION, VERIFY HOME MEDICATION (2) Hypertension Status: Acute (3) Weakness Status: Acute - Allergies Allergies/Adverse Reactions: Allergies Allergy/AdvReac Type Severity Reaction Status Date / Time codeine Allergy Verified 02/02/18 21:24
[2019-01-23] MEDS ORDERED: TYLENOL 325 MG TAB PO ONE (16:50)
[2019-01-23] MEDS: TYLENOL 325 MG TAB PO PRN (16:53)
[2019-01-23] MEDS: XANAX PO PRN (17:30)
[2019-01-23] MEDS: CELEBREX PO SCH (22:22)
[2019-01-23] MEDS: COREG TAB 3.125 MG PO SCH (22:23)
[2019-01-23] MEDS: PREVACID PO SCH (22:23)
[2019-01-23] MEDS: FLONASE NASAL SPRAY ENOSTRIL SCH (22:27)
[2019-01-23] MEDS ORDERED: RESTORIL CAP 15 MG PO PRN (23:19)
[2019-01-23] MEDS ORDERED: PHENERGAN INJ 25 MG IM PRN (23:19)
[2019-01-24 05:20] LABS: BASOPHILS % (AUTO) 0.5 % (0.2-1.0); EOSINOPHILS # (AUTO) 0.1 x10^3/uL (0.0-0.2); EOSINOPHILS % (AUTO) 1.2 % (0.9-2.9); HEMATOCRIT 36.8 % (36.0-47.0); HEMOGLOBIN 12.3 g/dL (12.0-16.0); LYMPHOCYTES % (AUTO) 27.9 % (21.0-51.0); MEAN CORPUSCULAR HEMOGLOBIN 28.9 pg (27.0-34.0); MEAN CORPUSCULAR HGB CONC 33.3 g/dL (33.0-35.0); MEAN CORPUSCULAR VOLUME 86.7 fL (80.0-100.0); MEAN PLATELET VOLUME 8.4 fL (7.4-11.0); MONOCYTES # (AUTO) 0.9 x10^3/uL (0.3-0.8); MONOCYTES % (AUTO) 11.9 % (0.0-13.0); NEUTROPHILS # (AUTO) 4.2 x10^3/uL (2.2-4.8); NEUTROPHILS % (AUTO) 58.5 % (42.0-75.0); PLATELET COUNT 305 X10^3/uL (150.0-450.0); RED BLOOD COUNT 4.25 X10^6/uL (3.5-5.4); RED CELL DISTRIBUTION WIDTH 15.6 % (11.6-16.5); WHITE BLOOD COUNT 7.2 X10^3/uL (3.6-10.0)
[2019-01-24 05:29] LABS: ALANINE AMINOTRANSFERASE 21 Units/L (12-78); ALBUMIN 3.1 g/dL (3.4-5.0); ALKALINE PHOSPHATASE 61 Units/L (46-116); ASPARTATE AMINO TRANSFERASE 13 Units/L (15-37); BLOOD UREA NITROGEN 17 mg/dL (7-18); CALCIUM 8.2 mg/dL (8.5-10.1); CARBON DIOXIDE 26.5 mmol/L (21-32); CHLORIDE 95 mmol/L (98-107); COR CA(FOR HYPOALB) 8.9 mg/dL (8.5-10.1); CREATININE 1.05 mg/dL (0.55-1.02); SODIUM 129 mmol/L (136-145); TOTAL PROTEIN 6.1 g/dL (6.4-8.2); eGFR NON BLACK RACES 54 (>60)
[2019-01-24] MEDS: TAPENTADOL PO SCH (05:31)
[2019-01-24] MEDS: NEURONTIN CAP 300 MG PO SCH ×3 (05:35→22:22)
[2019-01-24] MEDS: NS 1000 ML 1,000 ML IV SCH ×3 (05:56→22:23)
[2019-01-24 06:41] VITALS: BMI 27.8
[2019-01-24] MEDS: DUONEB 0.5 MG/3 MG NEB SCH ×4 (08:29→21:01)
[2019-01-24] MEDS: CELEBREX PO SCH ×2 (08:55→20:48)
[2019-01-24] MEDS: COREG TAB 3.125 MG PO SCH ×2 (08:56→20:47)
[2019-01-24] MEDS: COZAAR PO SCH (08:57)
[2019-01-24] MEDS: FLONASE NASAL SPRAY ENOSTRIL SCH ×2 (08:57→20:48)
[2019-01-24] MEDS: ESTRACE PO SCH (08:57)
[2019-01-24] MEDS: PREVACID PO SCH ×2 (08:57→20:48)
[2019-01-24] MEDS ORDERED: LIPITOR TAB 40 MG PO SCH (09:00)
[2019-01-24] MEDS: TYLENOL 325 MG TAB PO PRN ×2 (15:30→23:25)
[2019-01-24] MEDS: LIPITOR TAB 40 MG PO SCH (20:47)
[2019-01-24] MEDS: XANAX PO PRN (20:49)
[2019-01-25] MEDS: NEURONTIN CAP 300 MG PO SCH ×3 (05:03→21:30)
[2019-01-25] MEDS: NS 1000 ML 1,000 ML IV SCH ×2 (05:10→13:35)
[2019-01-25] MEDS: TYLENOL 325 MG TAB PO PRN ×2 (05:10→20:20)
[2019-01-25 05:22] LABS: BASOPHILS % (AUTO) 0.4 % (0.2-1.0); EOSINOPHILS # (AUTO) 0.1 x10^3/uL (0.0-0.2); EOSINOPHILS % (AUTO) 2.1 % (0.9-2.9); HEMATOCRIT 34.5 % (36.0-47.0); HEMOGLOBIN 11.3 g/dL (12.0-16.0); LYMPHOCYTES # (AUTO) 1.8 X10^3/uL (1.3-2.9); LYMPHOCYTES % (AUTO) 25.5 % (21.0-51.0); MEAN CORPUSCULAR HEMOGLOBIN 28.8 pg (27.0-34.0); MEAN CORPUSCULAR HGB CONC 32.7 g/dL (33.0-35.0); MEAN PLATELET VOLUME 8.2 fL (7.4-11.0); MONOCYTES # (AUTO) 0.8 x10^3/uL (0.3-0.8); MONOCYTES % (AUTO) 10.6 % (0.0-13.0); NEUTROPHILS # (AUTO) 4.4 x10^3/uL (2.2-4.8); NEUTROPHILS % (AUTO) 61.4 % (42.0-75.0); PLATELET COUNT 302 X10^3/uL (150.0-450.0); RED BLOOD COUNT 3.92 X10^6/uL (3.5-5.4); RED CELL DISTRIBUTION WIDTH 15.4 % (11.6-16.5); WHITE BLOOD COUNT 7.2 X10^3/uL (3.6-10.0)
[2019-01-25 05:32] LABS: ALANINE AMINOTRANSFERASE 20 Units/L (12-78); ALKALINE PHOSPHATASE 58 Units/L (46-116); ASPARTATE AMINO TRANSFERASE 12 Units/L (15-37); BLOOD UREA NITROGEN 18 mg/dL (7-18); CALCIUM 8.3 mg/dL (8.5-10.1); CARBON DIOXIDE 24.3 mmol/L (21-32); CHLORIDE 97 mmol/L (98-107); COR CA(FOR HYPOALB) 9.1 mg/dL (8.5-10.1); CREATININE 1.13 mg/dL (0.55-1.02); SODIUM 130 mmol/L (136-145); TOTAL PROTEIN 5.9 g/dL (6.4-8.2); eGFR NON BLACK RACES 49 (>60)
--- NOTE | 2019-01-25 08:31 | PCM.PROG ---
Progress Note - Progress Note for Day of Date of Exam: 01/24/19 - Subjective Subjective: WAS ADMITTED FOR ACUTE HYPONATREMIA.TODAY, SHE IS ALERT AND ORIENTED, LYING IN BED ON MORNING ROUNDS. SHE CONTINUES WITH COMPLAINTS OF GENERALIZED WEAKNESS AND DIZZINESS AT TIMES. ON EXAMINATION, HEART IS REGULAR IN RATE AND RHYTHM. BILATERAL LUNGS ARE NOTED WITH DIMINISHED LUNG SOUNDS THROUGHOUT. ABDOMEN IS ROUND, SOFT, AND NON-TENDER WITH NORMAL BOWEL SOUNDS NOTED IN ALL QUADRANTS. HER VITALS THIS MORNING ARE 97.9-62-18-95%-103/52. LABS WERE OBTAINED. ABNORMAL LAB VALUES INCLUDE THE FOLLOWING: SODIUM 129, CHLORIDE 95, CREATININE 1.05, CALCIUM 8.2, AST 13, TOTAL PROTEIN 6.1, ALBUMIN 3.1. SHE IS CURRENTLY RECEIVING NORMAL SALINE AT 50ML/HR. WE WILL CONTINUE WITH CURRENT PLAN OF CARE TODAY. OTHERWISE, WE WILL FOLLOW UP WITH AM LABS AND CONTINUE TO MONITOR. - Past Medical Family Social History Past Med/Fam/Surg Hx: No changes since H&P Allergies: Allergies codeine Allergy (Verified 02/02/18 21:24) - Review of Systems ROS: No change since H&P - Vital Signs and I&O's Vital Signs: Temperature 98.0 F Pulse Rate [Left Radial] 88 Pulse Rate 78 Respiratory Rate 18 Blood Pressure [Left Arm] 176/81 Blood Pressure [Right Arm] 135/72 Blood Pressure 185/77 O2 Sat by Pulse Oximetry 97 Intake and Output: Intake & Output 01/22/19 01/23/19 01/24/19 01/25/19 11:59 11:59 11:59 11:59 Intake Total 1660 / 1660 2039 Balance 1660 / 1660 2039 - Physical Exam Oriented: Normal Eyes: Normal Ear: Normal Nose: Normal Throat: Normal Respiratory: Generalized, Diminished Cardiovascular: Normal : Normal Auscultation: Bowel Sounds: Normal Palpation: Normal Tenderness: Normal Skin: Decreased Turgur Musculoskeletal: Back:Thoracic, Back:Lumbar Psychiatric: Anxiety Affect: Angry Speech Pattern: Clear, Appropriate - Laboratory and Diagnostics Result Diagrams: 01/25/19 04:52 01/25/19 04:52 Labs: Laboratory WBC 7.2 X10^3/uL (3.6-10.0) 01/25/19 04:52 RBC 3.92 X10^6/uL (3.5-5.4) 01/25/19 04:52 Hgb 11.3 g/dL (12.0-16.0) L 01/25/19 04:52 Hct 34.5 % (36.0-47.0) L 01/25/19 04:52 MCV 88.0 fL (80.0-100.0) 01/25/19 04:52 MCH 28.8 pg (27.0-34.0) 01/25/19 04:52 MCHC 32.7 g/dL (33.0-35.0) L 01/25/19 04:52 RDW 15.4 % (11.6-16.5) 01/25/19 04:52 Plt Count 302 X10^3/uL (150.0-450.0) 01/25/19 04:52 MPV 8.2 fL (7.4-11.0) 01/25/19 04:52 Neut % (Auto) 61.4 % (42.0-75.0) 01/25/19 04:52 Lymph % (Auto) 25.5 % (21.0-51.0) 01/25/19 04:52 [place] % (Auto) 10.6 % (0.0-13.0) 01/25/19 04:52 Eos % (Auto) 2.1 % (0.9-2.9) 01/25/19 04:52 Baso % (Auto) 0.4 % (0.2-1.0) 01/25/19 04:52 Neut # (Auto) 4.4 x10^3/uL (2.2-4.8) 01/25/19 04:52 Lymph # (Auto) 1.8 X10^3/uL (1.3-2.9) 01/25/19 04:52 [place] # (Auto) 0.8 x10^3/uL (0.3-0.8) 01/25/19 04:52 Eos # (Auto) 0.1 x10^3/uL (0.0-0.2) 01/25/19 04:52 Baso # (Auto) 0.0 X10^3/uL (0.0-0.1) 01/25/19 04:52 Absolute Nucleated RBC 0.0 /100WBC 01/25/19 04:52 Sodium 130 mmol/L (136-145) L 01/25/19 04:52 Corrected Sodium TNP 01/25/19 04:52 Potassium 4.4 mmol/L (3.5-5.1) 01/25/19 04:52 Chloride 97 mmol/L (98-107) L 01/25/19 04:52 Carbon Dioxide 24.3 mmol/L (21-32) 01/25/19 04:52 BUN 18 mg/dL (7-18) 01/25/19 04:52 Creatinine 1.13 mg/dL (0.55-1.02) H 01/25/19 04:52 Est GFR (MDRD) Af Amer 60 (>60) 01/25/19 04:52 Est GFR (MDRD) Non-Af 49 (>60) L 01/25/19 04:52 Glucose 100 mg/dL (65-99) H 01/25/19 04:52 Calcium 8.3 mg/dL (8.5-10.1) L 01/25/19 04:52 Corrected Calcium 9.1 mg/dL (8.5-10.1) 01/25/19 04:52 Total Bilirubin 0.20 mg/dL (0.2-1.0) 01/25/19 04:52 AST 12 Units/L (15-37) L 01/25/19 04:52 ALT 20 Units/L (12-78) 01/25/19 04:52 Alkaline Phosphatase 58 Units/L (46-116) 01/25/19 04:52 C-Reactive Protein 1.30 mg/L (0-3.0) 01/23/19 09:06 Total Protein 5.9 g/dL (6.4-8.2) L 01/25/19 04:52 Albumin 3.0 g/dL (3.4-5.0) L 01/25/19 04:52 Globulin 2.9 g/dL (2.5-4.5) 01/25/19 04:52 Albumin/Globulin Ratio 1.0 Ratio (1.1-2.1) L 01/25/19 04:52 Specimen Type Clean catch urine 01/23/19 08:35 Urine Color Straw (YELLOW) 01/23/19 08:35 Urine Appearance Clear (CLEAR) 01/23/19 08:35 Urine pH 7.0 (5.0 - 8.0) 01/23/19 08:35 Ur Specific [place] 1.010 (1.000-1.030) 01/23/19 08:35 Urine Protein Negative (NEGATIVE) 01/23/19 08:35 Urine Glucose (UA) Negative (NEGATIVE) 01/23/19 08:35 Urine Ketones Negative (NEGATIVE) 01/23/19 08:35 Urine Occult Blood Negative (NEGATIVE) 01/23/19 08:35 Urine Nitrite Negative (NEGATIVE) 01/23/19 08:35 Urine Bilirubin Negative (NEGATIVE) 01/23/19 08:35 Urine Urobilinogen Normal (NORMAL) 01/23/19 08:35 Ur Leukocyte Esterase Negative (NEGATIVE) 01/23/19 08:35 - Plan (1) Hyponatremia Status: Acute Plan: CONTINUE IV HYDRATION, CONTINUE TO MONITOR (2) Hypertension Status: Acute Qualifiers: Hypertension type: essential hypertension Qualified Code(s): I10 - Ess ential (primary) hypertension Plan: CONTINUE COZAAR, CONTINUE COREG, CONTINUE TO MONITOR (3) Weakness Status: Acute
[2019-01-25] MEDS: COZAAR PO SCH (08:41)
[2019-01-25] MEDS: CELEBREX PO SCH (08:41)
[2019-01-25] MEDS: COREG TAB 3.125 MG PO SCH ×2 (08:41→20:19)
[2019-01-25] MEDS: ESTRACE PO SCH (08:42)
[2019-01-25] MEDS: PREVACID PO SCH ×2 (08:42→20:18)
[2019-01-25] MEDS: FLONASE NASAL SPRAY ENOSTRIL SCH ×2 (08:42→20:18)
[2019-01-25] MEDS: DUONEB 0.5 MG/3 MG NEB SCH ×4 (08:55→20:59)
[2019-01-25] MEDS ORDERED: COZAAR PO ONE (11:40)
[2019-01-25] MEDS: XANAX PO PRN (17:00)
[2019-01-25] MEDS: LIPITOR TAB 40 MG PO SCH (20:18)
--- NOTE | 2019-01-25 22:25 | PCM.PROG ---
Progress Note - Progress Note for Day of Date of Exam: 01/25/19 - Subjective Subjective: WAS ADMITTED FOR ACUTE HYPONATREMIA.TODAY, SHE IS LYING IN BED WITH EYES CLOSED ON MORNING ROUNDS. SHE AWAKENS AND RESPONDS TO VERBAL STIMULI, BUT IS DROWSY AND QUICKLY FALLS BACK TO SLEEP. SHE CONTINUES WITH COMPLAINTS OF GENERALIZED WEAKNESS AND DIZZINESS AT TIMES. ON EXAMINATION, HEART IS REGULAR IN RATE AND RHYTHM. BILATERAL LUNGS ARE NOTED WITH DIMINISHED LUNG SOUNDS THROUGHOUT. ABDOMEN IS ROUND, SOFT, AND NON-TENDER WITH NORMAL BOWEL SOUNDS NOTED IN ALL QUADRANTS. HER VITALS THIS MORNING ARE 97.2-79-20-99%-176/76. LABS WERE OBTAINED. ABNORMAL LAB VALUES INCLUDE THE FOLL OWING: HGB 11.3, HCT 34.5, SODIUM 130, CHLORIDE 97, CREATININE 1.13, GLUCOSE 100, CALCIUM 8.3, AST 12, TOTAL PROTEIN 5.9, ALBUMIN 3.0. HER BLOOD PRESSURE HAS BEEN ELVATED THROUGHOUT THE MORNING. SHE IS CURRENTLY RECEIVING NORMAL SALINE AT 50ML/HR. WE WILL INCREASE HER COZAAR TO 100MG PO DAILY AND DECREASE HER CELEBREX TO 100MG PO DAILY. OTHERWISE, WE WILL CONTINUE WITH CURRENT PLAN OF CARE TODAY. WE WILL FOLLOW UP WITH AM LABS AND CONTINUE TO MONITOR. - Past Medical Family Social History Past Med/Fam/Surg Hx: No changes since H&P Allergies: Allergies codeine Allergy (Verified 02/02/18 21:24) - Review of Systems ROS: No change since H&P - Vital Signs and I&O's Vital Signs: Temperature 98.2 F Pulse Rate [Left Radial] 90 Pulse Rate 91 Respiratory Rate 20 Blood Pressure [Left Arm] 171/77 Blood Pressure [Right Arm] 135/72 Blood Pressure 185/77 O2 Sat by Pulse Oximetry 99 Intake and Output: Intake & Output 01/23/19 01/24/19 01/25/19 01/26/19 11:59 11:59 11:59 11:59 Intake Total 1660 / 1660 2039 / 2039 1695 / 1695 Balance 1660 / 1660 2039 1695 / 1695 - Physical Exam Oriented: Normal Eyes: Normal Ear: Normal Nose: Normal Throat: Normal Respiratory: Generalized, Diminished Cardiovascular: Normal : Normal Auscultation: Bowel Sounds: Normal Tenderness: Normal Skin: Decreased Turgur Musculoskeletal: Back:Thoracic, Back:Lumbar Psychiatric: Anxiety Affect: Angry Speech Pattern: Clear, Appropriate - Laboratory and Diagnostics Result Diagrams: 01/25/19 04:52 01/25/19 04:52 Labs: Laboratory WBC 7.2 X10^3/uL (3.6-10.0) 01/25/19 04:52 RBC 3.92 X10^6/uL (3.5-5.4) 01/25/19 04:52 Hgb 11.3 g/dL (12.0-16.0) L 01/25/19 04:52 Hct 34.5 % (36.0-47.0) L 01/25/19 04:52 MCV 88.0 fL (80.0-100.0) 01/25/19 04:52 MCH 28.8 pg (27.0-34.0) 01/25/19 04:52 MCHC 32.7 g/dL (33.0-35.0) L 01/25/19 04:52 RDW 15.4 % (11.6-16.5) 01/25/19 04:52 Plt Count 302 X10^3/uL (150.0-450.0) 01/25/19 04:52 MPV 8.2 fL (7.4-11.0) 01/25/19 04:52 Neut % (Auto) 61.4 % (42.0-75.0) 01/25/19 04:52 Lymph % (Auto) 25.5 % (21.0-51.0) 01/25/19 04:52 [place] % (Auto) 10.6 % (0.0-13.0) 01/25/19 04:52 Eos % (Auto) 2.1 % (0.9-2.9) 01/25/19 04:52 Baso % (Auto) 0.4 % (0.2-1.0) 01/25/19 04:52 Neut # (Auto) 4.4 x10^3/uL (2.2-4.8) 01/25/19 04:52 Lymph # (Auto) 1.8 X10^3/uL (1.3-2.9) 01/25/19 04:52 [place] # (Auto) 0.8 x10^3/uL (0.3-0.8) 01/25/19 04:52 Eos # (Auto) 0.1 x10^3/uL (0.0-0.2) 01/25/19 04:52 Baso # (Auto) 0.0 X10^3/uL (0.0-0.1) 01/25/19 04:52 Absolute Nucleated RBC 0.0 /100WBC 01/25/19 04:52 Sodium 130 mmol/L (136-145) L 01/25/19 04:52 Corrected Sodium TNP 01/25/19 04:52 Potassium 4.4 mmol/L (3.5-5.1) 01/25/19 04:52 Chloride 97 mmol/L (98-107) L 01/25/19 04:52 Carbon Dioxide 24.3 mmol/L (21-32) 01/25/19 04:52 BUN 18 mg/dL (7-18) 01/25/19 04:52 Creatinine 1.13 mg/dL (0.55-1.02) H 01/25/19 04:52 Est GFR (MDRD) Af Amer 60 (>60) 01/25/19 04:52 Est GFR (MDRD) Non-Af 49 (>60) L 01/25/19 04:52 Glucose 100 mg/dL (65-99) H 01/25/19 04:52 Calcium 8.3 mg/dL (8.5-10.1) L 01/25/19 04:52 Corrected Calcium 9.1 mg/dL (8.5-10.1) 01/25/19 04:52 Total Bilirubin 0.20 mg/dL (0.2-1.0) 01/25/19 04:52 AST 12 Units/L (15-37) L 01/25/19 04:52 ALT 20 Units/L (12-78) 01/25/19 04:52 Alkaline Phosphatase 58 Units/L (46-116) 01/25/19 04:52 C-Reactive Protein 1.30 mg/L (0-3.0) 01/23/19 09:06 Total Protein 5.9 g/dL (6.4-8.2) L 01/25/19 04:52 Albumin 3.0 g/dL (3.4-5.0) L 01/25/19 04:52 Globulin 2.9 g/dL (2.5-4.5) 01/25/19 04:52 Albumin/Globulin Ratio 1.0 Ratio (1.1-2.1) L 01/25/19 04:52 Specimen Type Clean catch urine 01/23/19 08:35 Urine Color Straw (YELLOW) 01/23/19 08:35 Urine Appearance Clear (CLEAR) 01/23/19 08:35 Urine pH 7.0 (5.0 - 8.0) 01/23/19 08:35 Ur Specific [place] 1.010 (1.000-1.030) 01/23/19 08:35 Urine Protein Negative (NEGATIVE) 01/23/19 08:35 Urine Glucose (UA) Negative (NEGATIVE) 01/23/19 08:35 Urine Ketones Negative (NEGATIVE) 01/23/19 08:35 Urine Occult Blood Negative (NEGATIVE) 01/23/19 08:35 Urine Nitrite Negative (NEGATIVE) 01/23/19 08:35 Urine Bilirubin Negative (NEGATIVE) 01/23/19 08:35 Urine Urobilinogen Normal (NORMAL) 01/23/19 08:35 Ur Leukocyte Esterase Negative (NEGATIVE) 01/23/19 08:35 - Plan (1) Hyponatremia Status: Acute Plan: CONTINUE IV HYDRATION, CONTINUE TO MONITOR (2) Hypertension Status: Acute Qualifiers: Hypertension type: essential hypertension Qualified Code(s): I10 - Essential (primary) hypertension Plan: COZAAR 100MG PO DAILY, CONTINUE COREG, CONTINUE TO MONITOR (3) Weakness Status: Acute
[2019-01-26] MEDS: NS 1000 ML 1,000 ML IV SCH ×3 (04:08→08:29)
[2019-01-26] MEDS: TYLENOL 325 MG TAB PO PRN (05:38)
[2019-01-26] MEDS: NEURONTIN CAP 300 MG PO SCH (05:38)
[2019-01-26 06:10] LABS: BASOPHILS % (AUTO) 0.4 % (0.2-1.0); EOSINOPHILS # (AUTO) 0.2 x10^3/uL (0.0-0.2); EOSINOPHILS % (AUTO) 2.1 % (0.9-2.9); HEMATOCRIT 33.5 % (36.0-47.0); HEMOGLOBIN 11.2 g/dL (12.0-16.0); LYMPHOCYTES # (AUTO) 1.9 X10^3/uL (1.3-2.9); LYMPHOCYTES % (AUTO) 21.4 % (21.0-51.0); MEAN CORPUSCULAR HEMOGLOBIN 29.2 pg (27.0-34.0); MEAN CORPUSCULAR HGB CONC 33.3 g/dL (33.0-35.0); MEAN CORPUSCULAR VOLUME 87.6 fL (80.0-100.0); MEAN PLATELET VOLUME 8.2 fL (7.4-11.0); MONOCYTES # (AUTO) 0.7 x10^3/uL (0.3-0.8); MONOCYTES % (AUTO) 7.9 % (0.0-13.0); NEUTROPHILS % (AUTO) 68.2 % (42.0-75.0); PLATELET COUNT 306 X10^3/uL (150.0-450.0); RED BLOOD COUNT 3.83 X10^6/uL (3.5-5.4); RED CELL DISTRIBUTION WIDTH 16.1 % (11.6-16.5); WHITE BLOOD COUNT 8.8 X10^3/uL (3.6-10.0)
[2019-01-26 06:30] LABS: ALANINE AMINOTRANSFERASE 19 Units/L (12-78); ALKALINE PHOSPHATASE 60 Units/L (46-116); ASPARTATE AMINO TRANSFERASE 12 Units/L (15-37); BLOOD UREA NITROGEN 16 mg/dL (7-18); CALCIUM 8.1 mg/dL (8.5-10.1); CARBON DIOXIDE 23.7 mmol/L (21-32); CHLORIDE 101 mmol/L (98-107); COR CA(FOR HYPOALB) 8.9 mg/dL (8.5-10.1); CREATININE 1.03 mg/dL (0.55-1.02); SODIUM 133 mmol/L (136-145); TOTAL PROTEIN 5.9 g/dL (6.4-8.2); eGFR NON BLACK RACES 55 (>60)
[2019-01-26] MEDS: DUONEB 0.5 MG/3 MG NEB SCH (08:32)
[2019-01-26] MEDS: PREVACID PO SCH (08:47)
[2019-01-26] MEDS: COREG TAB 3.125 MG PO SCH (08:47)
[2019-01-26] MEDS: ESTRACE PO SCH (08:47)
[2019-01-26] MEDS: FLONASE NASAL SPRAY ENOSTRIL SCH (08:48)
[2019-01-26] MEDS ORDERED: COZAAR PO SCH (09:00)
[2019-01-26] MEDS ORDERED: CELEBREX PO SCH ×2 (09:00)
[2019-01-26 12:36] VITALS: BP 142/65
== END 2019-01-26 13:45 | disposition home health service (06) | DRG 641 ==
LOC: ER 07:51 → MED/SURG 10:03
PROVIDERS: ADMIT Internal Medicine; ATTEND Internal Medicine
DX: R53.1 Weakness; R42 Dizziness and giddiness; E87.1 Hypo-osmolality and hyponatremia; R26.89 Other abnormalities of gait and mobility; I10 Essential (primary) hypertension
CPT/HCPCS: 36415; 70486; 71010; 71045; 80053; 81003; 85025; 86140; 94640; 94760; 96365; 97116; 97162; 97166; 97530; 97535; 99231; 99284; A4216; A4222; J3490; J7030; J7620

== ENCOUNTER 2019-11-06 16:14 | Inpatient (IN) ==
--- NOTE | 2019-11-06 16:21 | DR.GENAD ---
HPI Time Seen Time Seen by Provider: 11/06/19 16:21 PCP Primary Care Physician: Pavel Lopez HPI Comment HPI Comment: 79 found on floor by family presumably after she had been down for the entire night; she says she's had to urinate quite a bit recently; no fever or chills, abd pain, n/v/d; she is hurting "all over" now but cannot tell me exactly where. 1750: s/w PMH PMH Past Medical History: Arthritis and Hypertension Past Surgical History: Yes Surgical History: Angioplasty/Stents, Hysterectomy and Tonsillectomy Family History Family Medical History: Hypertension Social History Do you use any recreational Drugs:: No infectious screening Isolation: Standard ROS Review of Systems Constitutional: Malaise and Fatigue Eyes: No Symptoms Reported ENTM: No Symptoms Reported Respiratoy: No Symptoms Reported Cardiovascular: No Symptoms Reported Gastrointestinal/Abdominal: No Symptoms Reported Genitourinary: See HPI and Frequency Neurological: Other (longstanding confusion per the son with getting easily agitated; it has not been evaluated and he would like it done at this ov) Musculoskeletal: See HPI, Joint Pain and Muscle Pain Integumentary: No Symptoms Reported Hematologic/Lymphatic: No Symptoms Reported Endocrine: No Symptoms Reported Psychiatric: Other (confusion) PE Vital Signs Vitals: Temperature 99.3 F Pulse Rate [Left Brachial] 106 Pulse Rate 109 Respiratory Rate 22 Blood Pressure [Left Arm] 142/65 Blood Pressure [Right Arm] 135/72 Blood Pressure 190/87 O2 Sat by Pulse Oximetry 97 General Limitations: No Limitations General Appearance: Alert and Other (appears to be in pain, groaning ) Head Head Exam: Normal Inspection, Atraumatic and Normocephalic Eyes Eye exam: Normal Appearance and PERRL ENT ENT Exam: Normal Exam Mouth Exam: Normal Inspection Neck Neck Exam: Normal Inspection, Full ROM and Trachea Midline Chest Chest Inspection: Normal Inspection and Symmetric Chest Wall Rise Respiratory Respiratory Exam: Bilateral: Clear to Auscultation Cardiovascular Cardiovascular Exam: Regular Rate and Normal Rhythm Abdominal Exam Abdominal Exam: Normal Inspection, Normal Bowel Sounds and Soft Extremities Extremities Exam: Normal Inspection Psychiatric Psychiatric Exam: Anxious and Other (groaning; concerned about wetting herself) Skin Skin Exam: Warm COURSE Reevaluation 1st: Unchanged 2nd: Unchanged (still w/pain "all over"; hard to localize) ROR Labs Reviewed Laboratory Results Reviewed?: Yes Result Diagrams: 11/06/19 16:45 11/06/19 16:45 Laboratory: WBC 21.8 X10^3/uL (3.6-10.0) H 11/06/19 16:45 RBC 4.36 X10^6/uL (3.5-5.4) 11/06/19 16:45 Hgb 12.4 g/dL (12.0-16.0) 11/06/19 16:45 Hct 38.8 % (36.0-47.0) 11/06/19 16:45 MCV 88.9 fL (80.0-100.0) 11/06/19 16:45 MCH 28.5 pg (27.0-34.0) 11/06/19 16:45 MCHC 32.1 g/dL (33.0-35.0) L 11/06/19 16:45 RDW 16.3 % (11.6-16.5) 11/06/19 16:45 Plt Count 432 X10^3/uL (150.0-450.0) 11/06/19 16:45 Plt Count Comment Adequate (ADEQUATE) 11/06/19 16:45 MPV 7.8 fL (7.4-11.0) 11/06/19 16:45 Neut % (Auto) 95.6 % (42.0-75.0) H 11/06/19 16:45 Lymph % (Auto) 3.5 % (21.0-51.0) L 11/06/19 16:45 [place] % (Auto) 0.7 % (0.0-13.0) 11/06/19 16:45 Eos % (Auto) 0.1 % (0.9-2.9) L 11/06/19 16:45 Baso % (Auto) 0.1 % (0.2-1.0) L 11/06/19 16:45 Neut # (Auto) 20.8 x10^3/uL (2.2-4.8) H 11/06/19 16:45 Lymph # (Auto) 0.8 X10^3/uL (1.3-2.9) L 11/06/19 16:45 [place] # (Auto) 0.2 x10^3/uL (0.3-0.8) L 11/06/19 16:45 Eos # (Auto) 0.0 x10^3/uL (0.0-0.2) 11/06/19 16:45 Baso # (Auto) 0.0 X10^3/uL (0.0-0.1) 11/06/19 16:45 Absolute Nucleated RBC 0.0 /100WBC 11/06/19 16:45 Total Counted 100 11/06/19 16:45 Neutrophils % (Manual) 72 % (39-76) 11/06/19 16:45 Band Neutrophils % 22 % (0-10) H 11/06/19 16:45 Lymphocytes % (Manual) 5 % (13-43) L 11/06/19 16:45 Monocytes % (Manual) 1 % (4-9) L 11/06/19 16:45 Plt Morphology Comment Normal (NORMAL) 11/06/19 16:45 RBC Morphology Normal (NORMAL) 11/06/19 16:45 Sodium 140 mmol/L (136-145) 11/06/19 16:45 Corrected Sodium TNP 11/06/19 16:45 Potassium 3.8 mmol/L (3.5-5.1) 11/06/19 16:45 Chloride 101 mmol/L (98-107) 11/06/19 16:45 Carbon Dioxide 28.8 mmol/L (21-32) 11/06/19 16:45 BUN 11 mg/dL (7-18) 11/06/19 16:45 Creatinine 0.93 mg/dL (0.55-1.02) 11/06/19 16:45 Est GFR (MDRD) Af Amer > 60 (>60) 11/06/19 16:45 Est GFR (MDRD) Non-Af > 60 (>60) 11/06/19 16:45 Glucose 88 mg/dL (65-99) 11/06/19 16:45 Calcium 8.9 mg/dL (8.5-10.1) 11/06/19 16:45 Corrected Calcium 9.8 mg/dL (8.5-10.1) 11/06/19 16:45 Total Bilirubin 0.60 mg/dL (0.2-1.0) 11/06/19 16:45 AST 55 Units/L (15-37) H 11/06/19 16:45 ALT 29 Units/L (12-78) 11/06/19 16:45 Alkaline Phosphatase 149 Units/L (46-116) H 11/06/19 16:45 Creatine Kinase 1519 Units/L (26-192) H 11/06/19 16:45 Total Protein 7.5 g/dL (6.4-8.2) 11/06/19 16:45 Albumin 2.9 g/dL (3.4-5.0) L 11/06/19 16:45 Globulin 4.6 g/dL (2.5-4.5) H 11/06/19 16:45 Albumin/Globulin Ratio 0.6 Ratio (1.1-2.1) L 11/06/19 16:45 Specimen Type Catherized urine 11/06/19 17:20 Urine Color Yellow (YELLOW) 11/06/19 17:20 Urine Appearance Cloudy (CLEAR) 11/06/19 17:20 Urine pH 6.5 (5.0 - 8.0) 11/06/19 17:20 Ur Specific [place] 1.010 (1.000-1.030) 11/06/19 17:20 Urine Protein 2+ (NEGATIVE) 11/06/19 17:20 Urine Glucose (UA) Negative (NEGATIVE) 11/06/19 17:20 Urine Ketones Negative (NEGATIVE) 11/06/19 17:20 Urine Occult Blood 4+ (NEGATIVE) 11/06/19 17:20 Urine Nitrite Positive (NEGATIVE) 11/06/19 17:20 Urine Bilirubin Negative (NEGATIVE) 11/06/19 17:20 Urine Urobilinogen Normal (NORMAL) 11/06/19 17:20 Ur Leukocyte Esterase 3+ (NEGATIVE) 11/06/19 17:20 Urine RBC 3-5 /HPF (0-3) A 11/06/19 17:20 Urine WBC 30-50 /HPF (0-5) A 11/06/19 17:20 Ur Squamous Epith Cells Few /HPF (NEGATIVE) 11/06/19 17:20 Urine Bacteria 3+ /HPF (NEGATIVE) 11/06/19 17:20 Ur Culture Indicated? Yes/culture set up 11/06/19 17:20 Opioid Opioid Risk Tool Total: 0 Total Score Risk Category: Low Risk Copyright: Ousmane PORTILLO predicting aberrant behaviors Diagnosis Discharge Problem: Acute confusion, Hypertension, uncontrolled Sepsis Qualifiers: Sepsis type: sepsis due to unspecified organism Sepsis acute organ dysfunction status: without acute organ dysfunction Qualified Code(s): A41.9 - Sepsis, unspecified organism Traumatic rhabdomyolysis Qualifiers: Encounter type: initial encounter Qualified Code(s): T79.6XXA - Traumatic ischemia of muscle, initial encounter Urinary tract infection Qualifiers: Urinary tract infection type: acute cystitis Hematuria presence: without hematuria Qualified Code(s): N30.00 - Acute cystitis without hematuria Instructions Forms: Excuse From Work
[2019-11-06 17:03] LABS: BASOPHILS % (AUTO) 0.1 % (0.2-1.0); EOSINOPHILS % (AUTO) 0.1 % (0.9-2.9); HEMATOCRIT 38.8 % (36.0-47.0); HEMOGLOBIN 12.4 g/dL (12.0-16.0); LYMPHOCYTES # (AUTO) 0.8 X10^3/uL (1.3-2.9); LYMPHOCYTES % (AUTO) 3.5 % (21.0-51.0); MEAN CORPUSCULAR HEMOGLOBIN 28.5 pg (27.0-34.0); MEAN CORPUSCULAR HGB CONC 32.1 g/dL (33.0-35.0); MEAN CORPUSCULAR VOLUME 88.9 fL (80.0-100.0); MEAN PLATELET VOLUME 7.8 fL (7.4-11.0); MONOCYTES # (AUTO) 0.2 x10^3/uL (0.3-0.8); MONOCYTES % (AUTO) 0.7 % (0.0-13.0); NEUTROPHILS # (AUTO) 20.8 x10^3/uL (2.2-4.8); NEUTROPHILS % (AUTO) 95.6 % (42.0-75.0); PLATELET COUNT 432 X10^3/uL (150.0-450.0); RED BLOOD COUNT 4.36 X10^6/uL (3.5-5.4); RED CELL DISTRIBUTION WIDTH 16.3 % (11.6-16.5); WHITE BLOOD COUNT 21.8 X10^3/uL (3.6-10.0)
[2019-11-06 17:19] LABS: ALANINE AMINOTRANSFERASE 29 Units/L (12-78); ALBUMIN 2.9 g/dL (3.4-5.0); ALKALINE PHOSPHATASE 149 Units/L (46-116); ASPARTATE AMINO TRANSFERASE 55 Units/L (15-37); BLOOD UREA NITROGEN 11 mg/dL (7-18); CALCIUM 8.9 mg/dL (8.5-10.1); CARBON DIOXIDE 28.8 mmol/L (21-32); CHLORIDE 101 mmol/L (98-107); COR CA(FOR HYPOALB) 9.8 mg/dL (8.5-10.1); CREATININE 0.93 mg/dL (0.55-1.02); SODIUM 140 mmol/L (136-145); TOTAL PROTEIN 7.5 g/dL (6.4-8.2); eGFR NON BLACK RACES > 60 (>60)
[2019-11-06 17:24] LABS: CREATINE KINASE 1519 Units/L (26-192)
[2019-11-06] MEDS ORDERED: NS 1000 ML 1,000 ML ONE (17:26)
[2019-11-06 17:28] LABS: BILIRUBIN,URINE NEGATIVE (NEGATIVE); BLOOD/HEMOGLOBIN,URINE 4+ (NEGATIVE); GLUCOSE, URINE NEGATIVE (NEGATIVE); KETONES,URINE NEGATIVE (NEGATIVE); LEUKOCYTE ESTERASE ,URINE 3+ (NEGATIVE); NITRITES,URINE POSITIVE (NEGATIVE); PH,URINE 6.5 (5.0 - 8.0); PROTEIN,URINE 2+ (NEGATIVE); UROBILINOGEN,URINE NORMAL (NORMAL)
[2019-11-06] MEDS: NS 1000 ML 1,000 ML IV SCH (17:33)
[2019-11-06 17:38] LABS: APPEARANCE,URINE CLOUDY (CLEAR); BACTERIA,URINE 3+ /HPF (NEGATIVE); COLOR,URINE YELLOW (YELLOW); SQUAMOUS EPITHELIAL CELL,UR FEW /HPF (NEGATIVE)
[2019-11-06] MEDS ORDERED: APRESOLINE INJ 20 MG VIAL IVP ONE (17:38)
[2019-11-06 17:43] LABS: BAND NEUTROPHILS % 22 % (0-10); PLATELET MORPHOLOGY COMMENT NORMAL (NORMAL)
[2019-11-06] MEDS ORDERED: APRESOLINE INJ 20 MG VIAL ONE (17:43)
[2019-11-06] MEDS ORDERED: NS 100 ML IV + SPIKE MINIBAG* 100 ML IV ONE (17:44)
[2019-11-06] MEDS ORDERED: ROCEPHIN VIAL 1 GRAM ONE (17:44)
[2019-11-06] MEDS: ROCEPHIN VIAL 1 GRAM 1 G in NS 100 ML IV + SPIKE MINIBAG* 100 ML IV SCH (17:57)
[2019-11-06] MEDS ORDERED: TORADOL 30 MG VIAL IVP ONE (19:40)
[2019-11-06] MEDS ORDERED: TORADOL 30 MG VIAL ONE (19:49)
[2019-11-06 23:24] VITALS: BMI 25.0
[2019-11-07] MEDS ORDERED: POTASSIUM CHLORIDE LIQ 20 MEQ UDC PO PRN (00:29)
[2019-11-07] MEDS ORDERED: K-RIDER 10 MEQ/NS 100 ML 10 MEQ/100 ML BAG IV PRN (00:29)
[2019-11-07] MEDS ORDERED: KLOR-CON PO PRN (00:29)
[2019-11-07] MEDS ORDERED: POTASSIUM CHL 60 MEQ/NS 0.45% 500 ML IV PRN (00:29)
[2019-11-07] MEDS ORDERED: POTASSIUM CHL 40 MEQ/NS 0.45% 500 ML IV PRN (00:29)
[2019-11-07] MEDS ORDERED: MAGNESIUM SULFATE 1 GRAM/100 mL PREMIX 2 G/200 ML BAG IV ONE (00:32)
[2019-11-07] MEDS: MAGNESIUM SULFATE 1 GRAM/100 mL PREMIX 1 GM/100 ML BAG IV PRN ×2 (00:35→01:37)
[2019-11-07] MEDS: NS 1000 ML 1,000 ML IV SCH ×4 (01:37→18:20)
[2019-11-07 05:34] LABS: BASOPHILS % (AUTO) 0.1 % (0.2-1.0); EOSINOPHILS % (AUTO) 0.1 % (0.9-2.9); HEMATOCRIT 30.4 % (36.0-47.0); LYMPHOCYTES # (AUTO) 1.6 X10^3/uL (1.3-2.9); LYMPHOCYTES % (AUTO) 6.2 % (21.0-51.0); MEAN CORPUSCULAR HEMOGLOBIN 29.6 pg (27.0-34.0); MEAN CORPUSCULAR HGB CONC 33.6 g/dL (33.0-35.0); MEAN CORPUSCULAR VOLUME 88.1 fL (80.0-100.0); MONOCYTES # (AUTO) 0.9 x10^3/uL (0.3-0.8); MONOCYTES % (AUTO) 3.6 % (0.0-13.0); NEUTROPHILS # (AUTO) 23.3 x10^3/uL (2.2-4.8); PLATELET COUNT 317 X10^3/uL (150.0-450.0); RED BLOOD COUNT 3.45 X10^6/uL (3.5-5.4); RED CELL DISTRIBUTION WIDTH 16.3 % (11.6-16.5); WHITE BLOOD COUNT 25.9 X10^3/uL (3.6-10.0)
[2019-11-07 05:42] LABS: LACTIC ACID 1.1 mmol/L (0.4-2.0)
[2019-11-07 05:48] LABS: ALANINE AMINOTRANSFERASE 24 Units/L (12-78); ALBUMIN 2.1 g/dL (3.4-5.0); ALKALINE PHOSPHATASE 107 Units/L (46-116); ASPARTATE AMINO TRANSFERASE 49 Units/L (15-37); BLOOD UREA NITROGEN 16 mg/dL (7-18); CALCIUM 7.8 mg/dL (8.5-10.1); CARBON DIOXIDE 24.4 mmol/L (21-32); CHLORIDE 104 mmol/L (98-107); COR CA(FOR HYPOALB) 9.3 mg/dL (8.5-10.1); CREATININE 1.04 mg/dL (0.55-1.02); SODIUM 139 mmol/L (136-145); TOTAL PROTEIN 5.8 g/dL (6.4-8.2); eGFR NON BLACK RACES 54 (>60)
[2019-11-07 05:49] LABS: MAGNESIUM 2.5 mg/dL (1.7-2.9)
[2019-11-07 06:13] LABS: HEMOGLOBIN 10.2 g/dL (12.0-16.0)
[2019-11-07] MEDS: MICRO K EXTEN CAP 10 MEQ PO PRN (06:13)
[2019-11-07 06:14] LABS: BAND NEUTROPHILS % 9 % (0-10); PLATELET MORPHOLOGY COMMENT NORMAL (NORMAL)
[2019-11-07] MEDS: TYLENOL 500 MG TAB EXTRA STRENGTH PO PRN ×2 (06:37→12:41)
[2019-11-07] MEDS: ROCEPHIN VIAL 1 GRAM 1 G in NS 100 ML IV + SPIKE MINIBAG* 100 ML IV SCH (08:43)
[2019-11-07] MEDS: LIPITOR TAB 40 MG PO SCH (08:52)
[2019-11-07] MEDS: ESTRACE PO SCH (08:52)
[2019-11-07] MEDS: COREG TAB 6.25 MG PO SCH ×2 (08:52→21:51)
--- NOTE | 2019-11-07 10:12 | DR.H&P ---
H&P History & Physical for Day of: H&P Date: 11/07/19 Chief Complaint Chief Complaint: fall, confusion Allergies Allergies Allergy/AdvReac Type Severity Reaction Status Date / Time codeine Allergy Verified 11/06/19 16:31 History of Present Illness History of Present Illness: Ms. Hope is a 79y/o female who was brought in by family due to worsening confusion after being found on the floor. Patient also has some underlying dementia. In ED, she was found to have a UTI and acute rhabdomyolysis. She was started on IV fluids and Rocephin. She also had elevated BP and received hydralazine. This AM, patient is oriented to herself but unable to provide a complete history, she takes a long time to answer questions. She does mention that she is normally not like this and not sure why she is confused. She does recall feeling dizzy and falling to the floor. She also mentions that she has been urinating quite a bit and that's not normal for her. She has some skin tears on the right arm but not any other apparent bruising. Past Medical History Past Medical History: Arthritis, Coronary Artery Disease, Dementia and Hypertension Past Surgical History Surgical History: Angioplasty/Stents, Hysterectomy, Tonsillectomy and Other Family History Family Medical History: Cancer, Sudden Cardiac and Hypertension Social History Does patient currently use any type of tobacco product: No Have you used tobacco products in the last 12 months: No Type of Tobacco Use: None Does any household member use tobacco: No Alcohol Use: Occasionally Drug Use: None Medications Home Medications: codeine Allergy (Verified 11/06/19 16:31) Labs Result Diagrams: 11/07/19 05:12 11/07/19 05:12 Labs: 11/06/19 17:20 Urine,Catheterized Urine Culture - Preliminary Laboratory WBC 25.9 X10^3/uL (3.6-10.0) H 11/07/19 05:12 RBC 3.45 X10^6/uL (3.5-5.4) L 11/07/19 05:12 Hgb 10.2 g/dL (12.0-16.0) L D 11/07/19 05:12 Hct 30.4 % (36.0-47.0) L 11/07/19 05:12 MCV 88.1 fL (80.0-100.0) 11/07/19 05:12 MCH 29.6 pg (27.0-34.0) 11/07/19 05:12 MCHC 33.6 g/dL (33.0-35.0) 11/07/19 05:12 RDW 16.3 % (11.6-16.5) 11/07/19 05:12 Plt Count 317 X10^3/uL (150.0-450.0) 11/07/19 05:12 Plt Count Comment Adequate (ADEQUATE) 11/07/19 05:12 MPV 8.0 fL (7.4-11.0) 11/07/19 05:12 Neut % (Auto) 90.0 % (42.0-75.0) H 11/07/19 05:12 Lymph % (Auto) 6.2 % (21.0-51.0) L 11/07/19 05:12 [place] % (Auto) 3.6 % (0.0-13.0) 11/07/19 05:12 Eos % (Auto) 0.1 % (0.9-2.9) L 11/07/19 05:12 Baso % (Auto) 0.1 % (0.2-1.0) L 11/07/19 05:12 Neut # (Auto) 23.3 x10^3/uL (2.2-4.8) H 11/07/19 05:12 Lymph # (Auto) 1.6 X10^3/uL (1.3-2.9) 11/07/19 05:12 [place] # (Auto) 0.9 x10^3/uL (0.3-0.8) H 11/07/19 05:12 Eos # (Auto) 0.0 x10^3/uL (0.0-0.2) 11/07/19 05:12 Baso # (Auto) 0.0 X10^3/uL (0.0-0.1) 11/07/19 05:12 Absolute Nucleated RBC 0.0 /100WBC 11/07/19 05:12 Total Counted 100 11/07/19 05:12 Neutrophils % (Manual) 81 % (39-76) H 11/07/19 05:12 Band Neutrophils % 9 % (0-10) 11/07/19 05:12 Lymphocytes % (Manual) 7 % (13-43) L 11/07/19 05:12 Monocytes % (Manual) 3 % (4-9) L 11/07/19 05:12 Plt Morphology Comment Normal (NORMAL) 11/07/19 05:12 RBC Morphology Normal (NORMAL) 11/07/19 05:12 Sodium 139 mmol/L (136-145) 11/07/19 05:12 Corrected Sodium TNP 11/07/19 05:12 Potassium 3.4 mmol/L (3.5-5.1) L 11/07/19 05:12 Chloride 104 mmol/L (98-107) 11/07/19 05:12 Carbon Dioxide 24.4 mmol/L (21-32) 11/07/19 05:12 BUN 16 mg/dL (7-18) 11/07/19 05:12 Creatinine 1.04 mg/dL (0.55-1.02) H 11/07/19 05:12 Est GFR (MDRD) Af Amer > 60 (>60) 11/07/19 05:12 Est GFR (MDRD) Non-Af 54 (>60) L 11/07/19 05:12 Glucose 98 mg/dL (65-99) 11/07/19 05:12 POC Glucose (mg/dL) 134 mg/dL (65-99) H 11/07/19 06:35 Lactic Acid 1.1 mmol/L (0.4-2.0) 11/07/19 05:12 Calcium 7.8 mg/dL (8.5-10.1) L 11/07/19 05:12 Corrected Calcium 9.3 mg/dL (8.5-10.1) 11/07/19 05:12 Magnesium 2.5 mg/dL (1.7-2.9) 11/07/19 05:12 Total Bilirubin 0.20 mg/dL (0.2-1.0) 11/07/19 05:12 AST 49 Units/L (15-37) H 11/07/19 05:12 ALT 24 Units/L (12-78) 11/07/19 05:12 Alkaline Phosphatase 107 Units/L (46-116) 11/07/19 05:12 Creatine Kinase 1519 Units/L (26-192) H 11/06/19 16:45 Total Protein 5.8 g/dL (6.4-8.2) L 11/07/19 05:12 Albumin 2.1 g/dL (3.4-5.0) L 11/07/19 05:12 Globulin 3.7 g/dL (2.5-4.5) 11/07/19 05:12 Albumin/Globulin Ratio 0.6 Ratio (1.1-2.1) L 11/07/19 05:12 Specimen Type Catherized urine 11/06/19 17:20 Urine Color Yellow (YELLOW) 11/06/19 17:20 Urine Appearance Cloudy (CLEAR) 11/06/19 17:20 Urine pH 6.5 (5.0 - 8.0) 11/06/19 17:20 Ur Specific [place] 1.010 (1.000-1.030) 11/06/19 17:20 Urine Protein 2+ (NEGATIVE) 11/06/19 17:20 Urine Glucose (UA) Negative (NEGATIVE) 11/06/19 17:20 Urine Ketones Negative (NEGATIVE) 11/06/19 17:20 Urine Occult Blood 4+ (NEGATIVE) 11/06/19 17:20 Urine Nitrite Positive (NEGATIVE) 11/06/19 17:20 Urine Bilirubin Negative (NEGATIVE) 11/06/19 17:20 Urine Urobilinogen Normal (NORMAL) 11/06/19 17:20 Ur Leukocyte Esterase 3+ (NEGATIVE) 11/06/19 17:20 Urine RBC 3-5 /HPF (0-3) A 11/06/19 17:20 Urine WBC 30-50 /HPF (0-5) A 11/06/19 17:20 Ur Squamous Epith Cells Few /HPF (NEGATIVE) 11/06/19 17:20 Urine Bacteria 3+ /HPF (NEGATIVE) 11/06/19 17:20 Ur Culture Indicated? Yes/culture set up 11/06/19 17:20 Review of Systems Constitutional: Weakness Eyes: No Symptoms Reported ENT: No Symptoms Reported Respiratory: No Symptoms Reported Cardiovascular: [place] Gastrointestinal: Abdominal Pain Genitourinary: Frequency Musculoskeletal: No Symptoms Reported Skin: Bruising Neurological: Confusion Physical Exam Vital Signs: Temperature 97.9 F Pulse Rate [Left Brachial] 106 Pulse Rate 81 Respiratory Rate 24 Blood Pressure [Left Arm] 115/84 Blood Pressure [Right Arm] 135/72 Blood Pressure 113/57 O2 Sat by Pulse Oximetry 98 Oriented: Person Eyes: Normal Nose: Normal Throat: Normal Respiratory: Clear Throughout Cardiovascular: Normal Auscultation: Bowel Sounds: Normal Tenderness: Suprapubic Skin: Bruising and Other (skin tear on the right forearm ) Musculoskeletal: Normal Psychiatric: Normal Mood Description: Calm Affect: Normal Speech Pattern: Delayed Assessment/Plan (1) Sepsis: Qualifiers: Sepsis acute organ dysfunction status: without acute organ dysfunction Sepsis type: sepsis due to unspecified organism Qualified Code(s): A41.9 - Sepsis, unspecified organism Status: Acute Plan: elevated WBCs and lactic acid on admission with UA suggestive of infection Continue IVF and antibiotics. Lactate normalized. Patient hemodynamically stable. (2) Traumatic rhabdomyolysis: Qualifiers: Encounter type: initial encounter Qualified Code(s): T79.6XXA - Traumatic ischemia of muscle, initial encounter Status: Acute Plan: CK: 1519, monitor labs and renal function Continue IVF (3) Urinary tract infection: Qualifiers: Hematuria presence: without hematuria Urinary tract infection type: acute cystitis Qualified Code(s): N30.00 - Acute cystitis without hematuria Status: Acute Plan: UA suggestive of infection, continue Rocephin, Follow cultures. (4) Acute confusion: Status: Acute Plan: likely due to infection or worsening underlying dementia. Patient also had a fall. Will get CT head to rule out any acute changes. (5) Weakness: Status: Acute Plan: PT/OT when stable, continue hydration (6) Hypokalemia: Status: Acute Plan: replace as per protocol (7) Hypomagnesemia: Status: Acute Plan: replace as per protocol. (8) Hypotension: Qualifiers: Hypotension type: hypotension due to hypovolemia Qualified Code(s): I95.89 - Other hypotension; E86.1 - Hypovolemia Status: Acute Plan: continue hydration, will hold anti-hypertensives for now (9) Abdominal pain: Qualifiers: Abdominal location: lower abdomen, unspecified Qualified Code(s): R10.30 - Lower abdominal pain, unspecified Status: Acute Plan: could be 2/2 to UTI and Fall Abdomen Series and Pelvic XR pending Review H&P Reviewed: Yes Patient was examined?: Yes
[2019-11-07] MEDS ORDERED: LOVENOX INJ 40 MG SYR SC SCH (11:00)
--- NOTE | 2019-11-07 12:08 | CT ---
HISTORYFall confusionSTUDYHead CT noncontrast,Radiation dose reduction was achieved through individualized adjustment of kVP and/or mA, through adaptive statistical iterative reconstruction, and/or through automated tube current modulation.COMPARISONMar2017 head CTFINDINGSScout film is unremarkable. The cortical sulci are symmetric. There are no extra-axial fluid collections or mass lesions. There is mild prominence of ventricular system but it is symmetric without effacement or midline shift. The brainstem and cerebellum are normal. Old lacunar infarcts are seen in the left basal ganglia mild periventricular hypodensities are seen consistent with chronic ischemic white matter change. Comparison is made to the prior exam February 02, 2018 and there is no interval change in the cortical sulci or ventricular system since that exam. The old lacunar infarct in the left basal ganglia was present previously. Coronal and sagittal reformats were reviewed but no additional findings are noted. On review of bone windows the mastoid air cells are clear. The skullbase middle ear cavities IAC's are normal the paranasal sinuses are clear the bony calvarium is normal.IMPRESSIONNo acute intracranial abnormalities and no change from the prior study February 02, 2018. There is an old lacunar infarct in the left basal ganglia, mild periventricular chronic ischemic white matter changes and vascular arterial calcifications in the cavernous portions of the internal carotid arteries. Detail is normal.Electronically signed by: BROOKS PRESSLEY (Nov 07, 2019 12:07:06)
[2019-11-07] MEDS ORDERED: LEVSIN/MAALOX/LIDOC VISC PO PRN (17:02)
[2019-11-07] MEDS: PREVACID PO SCH (18:22)
[2019-11-07] MEDS ORDERED: ROCEPHIN VIAL 1 GRAM 1 G in NS 100 ML IV + SPIKE MINIBAG* 100 ML IV SCH (19:56)
[2019-11-07] MEDS ORDERED: MIRALAX POWDER (1 DOSE 17 G) PO SCH (21:00)
[2019-11-07] MEDS: COLACE SYRUP 100 MG UDC PO SCH (21:51)
[2019-11-07] MEDS ORDERED: XANAX ONE (22:46)
[2019-11-07] MEDS: XANAX PO PRN (22:50)
[2019-11-08] MEDS: NS 1000 ML 1,000 ML IV SCH ×3 (04:10→17:00)
[2019-11-08 06:03] LABS: BASOPHILS % (AUTO) 0.2 % (0.2-1.0); EOSINOPHILS % (AUTO) 0.1 % (0.9-2.9); HEMATOCRIT 31.2 % (36.0-47.0); HEMOGLOBIN 10.2 g/dL (12.0-16.0); LYMPHOCYTES # (AUTO) 0.9 X10^3/uL (1.3-2.9); LYMPHOCYTES % (AUTO) 4.6 % (21.0-51.0); MEAN CORPUSCULAR HEMOGLOBIN 28.7 pg (27.0-34.0); MEAN CORPUSCULAR HGB CONC 32.8 g/dL (33.0-35.0); MEAN CORPUSCULAR VOLUME 87.6 fL (80.0-100.0); MEAN PLATELET VOLUME 8.2 fL (7.4-11.0); MONOCYTES # (AUTO) 0.8 x10^3/uL (0.3-0.8); MONOCYTES % (AUTO) 3.8 % (0.0-13.0); NEUTROPHILS # (AUTO) 18.6 x10^3/uL (2.2-4.8); NEUTROPHILS % (AUTO) 91.3 % (42.0-75.0); PLATELET COUNT 281 X10^3/uL (150.0-450.0); RED BLOOD COUNT 3.56 X10^6/uL (3.5-5.4); RED CELL DISTRIBUTION WIDTH 16.5 % (11.6-16.5); WHITE BLOOD COUNT 20.3 X10^3/uL (3.6-10.0)
[2019-11-08 06:04] LABS: ALANINE AMINOTRANSFERASE 26 Units/L (12-78); ALBUMIN 2.1 g/dL (3.4-5.0); ALKALINE PHOSPHATASE 115 Units/L (46-116); ASPARTATE AMINO TRANSFERASE 45 Units/L (15-37); BLOOD UREA NITROGEN 18 mg/dL (7-18); CALCIUM 7.8 mg/dL (8.5-10.1); CARBON DIOXIDE 24.2 mmol/L (21-32); CHLORIDE 103 mmol/L (98-107); COR CA(FOR HYPOALB) 9.3 mg/dL (8.5-10.1); CREATININE 0.98 mg/dL (0.55-1.02); SODIUM 137 mmol/L (136-145); eGFR NON BLACK RACES 58 (>60)
[2019-11-08 07:01] LABS: BAND NEUTROPHILS % 6 % (0-10); PLATELET MORPHOLOGY COMMENT NORMAL (NORMAL)
[2019-11-08] MEDS: ROCEPHIN VIAL 1 GRAM 1 G in NS 100 ML IV + SPIKE MINIBAG* 100 ML IV SCH (09:10)
[2019-11-08] MEDS: LOVENOX INJ 40 MG SYR SC SCH (09:10)
[2019-11-08] MEDS: ESTRACE PO SCH (09:11)
--- NOTE | 2019-11-08 09:11 | PCM.PROG ---
Progress Note Progress Note for Day of Date of Exam: 11/08/19 Subjective Subjective: Patient seen at bedside, reports feeling better. She had a BM this AM. She states abdominal discomfort is better today. Denies N/V/D, she has been eating some but does not like the food she has been getting and would like to make some requests. 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 CT-head showed no acute changes but an old lacunar stroke. KUB showed stool and pelvis XR was negative. She is currently being treated for UTI with Rocephin, final cultures pending. Past Medical Family Social History Past Med/Fam/Surg Hx: No changes since H&P Allergies: Allergies codeine Allergy (Verified 11/06/19 16:31) Review of Systems ROS: No change since H&P Vital Signs and I&O's Vital Signs: Temperature 98.6 F Pulse Rate [Left Brachial] 106 Pulse Rate 80 Respiratory Rate 16 Blood Pressure [Left Arm] 115/84 Blood Pressure [Right Arm] 135/72 Blood Pressure 132/68 O2 Sat by Pulse Oximetry 92 Intake and Output: Intake & Output 11/05/19 11/06/19 11/07/19 11/08/19 23:59 23:59 23:59 23:59 Intake Total 350 / 350 3456 / 3456 794 / 794 Output Total 500 / 500 725 / 725 250 / 250 Balance -150 / -150 2731 / 2731 544 / 544 Physical Exam Oriented: Person Eyes: Normal Nose: Normal Throat: Normal Respiratory: Normal Cardiovascular: Normal Auscultation: Bowel Sounds: Normal Tenderness: Normal Skin: Bruising and Other (skin tear on the right forearm ) Musculoskeletal: Normal Psychiatric: Normal Mood Description: Calm and Hostile Affect: Normal Speech Pattern: Delayed Laboratory and Diagnostics Result Diagrams: 11/08/19 04:19 11/08/19 04:19 Labs: 11/06/19 17:20 Urine,Catheterized Urine Culture - Preliminary 11/06/19 19:47 Blood Blood Culture - Preliminary 11/06/19 19:40 Blood Blood Culture - Preliminary Laboratory WBC 20.3 X10^3/uL (3.6-10.0) H 11/08/19 04:19 RBC 3.56 X10^6/uL (3.5-5.4) 11/08/19 04:19 Hgb 10.2 g/dL (12.0-16.0) L 11/08/19 04:19 Hct 31.2 % (36.0-47.0) L 11/08/19 04:19 MCV 87.6 fL (80.0-100.0) 11/08/19 04:19 MCH 28.7 pg (27.0-34.0) 11/08/19 04:19 MCHC 32.8 g/dL (33.0-35.0) L 11/08/19 04:19 RDW 16.5 % (11.6-16.5) 11/08/19 04:19 Plt Count 281 X10^3/uL (150.0-450.0) 11/08/19 04:19 Plt Count Comment Adequate (ADEQUATE) 11/08/19 04:19 MPV 8.2 fL (7.4-11.0) 11/08/19 04:19 Neut % (Auto) 91.3 % (42.0-75.0) H 11/08/19 04:19 Lymph % (Auto) 4.6 % (21.0-51.0) L 11/08/19 04:19 [place] % (Auto) 3.8 % (0.0-13.0) 11/08/19 04:19 Eos % (Auto) 0.1 % (0.9-2.9) L 11/08/19 04:19 Baso % (Auto) 0.2 % (0.2-1.0) 11/08/19 04:19 Neut # (Auto) 18.6 x10^3/uL (2.2-4.8) H 11/08/19 04:19 Lymph # (Auto) 0.9 X10^3/uL (1.3-2.9) L 11/08/19 04:19 [place] # (Auto) 0.8 x10^3/uL (0.3-0.8) 11/08/19 04:19 Eos # (Auto) 0.0 x10^3/uL (0.0-0.2) 11/08/19 04:19 Baso # (Auto) 0.0 X10^3/uL (0.0-0.1) 11/08/19 04:19 Absolute Nucleated RBC 0.0 /100WBC 11/08/19 04:19 Total Counted 100 11/08/19 04:19 Neutrophils % (Manual) 87 % (39-76) H 11/08/19 04:19 Band Neutrophils % 6 % (0-10) 11/08/19 04:19 Lymphocytes % (Manual) 4 % (13-43) L 11/08/19 04:19 Monocytes % (Manual) 3 % (4-9) L 11/08/19 04:19 Plt Morphology Comment Normal (NORMAL) 11/08/19 04:19 RBC Morphology Normal (NORMAL) 11/08/19 04:19 Sodium 137 mmol/L (136-145) 11/08/19 04:19 Corrected Sodium TNP 11/08/19 04:19 Potassium 3.5 mmol/L (3.5-5.1) 11/08/19 04:19 Chloride 103 mmol/L (98-107) 11/08/19 04:19 Carbon Dioxide 24.2 mmol/L (21-32) 11/08/19 04:19 BUN 18 mg/dL (7-18) 11/08/19 04:19 Creatinine 0.98 mg/dL (0.55-1.02) 11/08/19 04:19 Est GFR (MDRD) Af Amer > 60 (>60) 11/08/19 04:19 Est GFR (MDRD) Non-Af 58 (>60) L 11/08/19 04:19 Glucose 95 mg/dL (65-99) 11/08/19 04:19 POC Glucose (mg/dL) 119 mg/dL (65-99) H 11/07/19 21:13 Lactic Acid 1.1 mmol/L (0.4-2.0) 11/07/19 05:12 Calcium 7.8 mg/dL (8.5-10.1) L 11/08/19 04:19 Corrected Calcium 9.3 mg/dL (8.5-10.1) 11/08/19 04:19 Magnesium 2.1 mg/dL (1.7-2.9) 11/08/19 04:19 Total Bilirubin 0.30 mg/dL (0.2-1.0) 11/08/19 04:19 AST 45 Units/L (15-37) H 11/08/19 04:19 ALT 26 Units/L (12-78) 11/08/19 04:19 Alkaline Phosphatase 115 Units/L (46-116) 11/08/19 04:19 Creatine Kinase 1519 Units/L (26-192) H 11/06/19 16:45 Total Protein 6.0 g/dL (6.4-8.2) L 11/08/19 04:19 Albumin 2.1 g/dL (3.4-5.0) L 11/08/19 04:19 Globulin 3.9 g/dL (2.5-4.5) 11/08/19 04:19 Albumin/Globulin Ratio 0.5 Ratio (1.1-2.1) L 11/08/19 04:19 Specimen Type Catherized urine 11/06/19 17:20 Urine Color Yellow (YELLOW) 11/06/19 17:20 Urine Appearance Cloudy (CLEAR) 11/06/19 17:20 Urine pH 6.5 (5.0 - 8.0) 11/06/19 17:20 Ur Specific [place] 1.010 (1.000-1.030) 11/06/19 17:20 Urine Protein 2+ (NEGATIVE) 11/06/19 17:20 Urine Glucose (UA) Negative (NEGATIVE) 11/06/19 17:20 Urine Ketones Negative (NEGATIVE) 11/06/19 17:20 Urine Occult Blood 4+ (NEGATIVE) 11/06/19 17:20 Urine Nitrite Positive (NEGATIVE) 11/06/19 17:20 Urine Bilirubin Negative (NEGATIVE) 11/06/19 17:20 Urine Urobilinogen Normal (NORMAL) 11/06/19 17:20 Ur Leukocyte Esterase 3+ (NEGATIVE) 11/06/19 17:20 Urine RBC 3-5 /HPF (0-3) A 11/06/19 17:20 Urine WBC 30-50 /HPF (0-5) A 11/06/19 17:20 Ur Squamous Epith Cells Few /HPF (NEGATIVE) 11/06/19 17:20 Urine Bacteria 3+ /HPF (NEGATIVE) 11/06/19 17:20 Ur Culture Indicated? Yes/culture set up 11/06/19 17:20 Plan (1) Sepsis: Status: Acute Qualifiers: Sepsis acute organ dysfunction status: without acute organ dysfunction Sepsis type: sepsis due to unspecified organism Qualified Code(s): A41.9 - Sepsis, unspecified organism Plan: elevated WBCs and lactic acid on admission with UA suggestive of infection Continue IVF and antibiotics. Lactate normalized. Patient hemodynamically stable. (2) Traumatic rhabdomyolysis: Status: Acute Qualifiers: Encounter type: initial encounter Qualified Code(s): T79.6XXA - Traumatic ischemia of muscle, initial encounter Plan: CK: 1519, monitor labs and renal function. Repeat CK pending. Continue IVF (3) Urinary tract infection: Status: Acute Qualifiers: Hematuria presence: without hematuria Urinary tract infection type: acute cystitis Qualified Code(s): N30.00 - Acute cystitis without hematuria Plan: UA suggestive of infection, culture: Gram neg rods, final pending. Continue Rocephin (4) Acute confusion: Status: Acute Plan: likely due to infection or worsening underlying dementia. CT-head negative for acute changes, chronic lacunar infarct (5) Weakness: Status: Acute Plan: PT/OT when stable, continue hydration (6) Hypokalemia: Status: Acute Plan: replace as per protocol (7) Hypomagnesemia: Status: Acute Plan: replace as per protocol. (8) Hypotension: Status: Acute Qualifiers: Hypotension type: hypotension due to hypovolemia Qualified Code(s): I95.89 - Other hypotension; E86.1 - Hypovolemia Plan: continue hydration, will hold anti-hypertensives for now (9) Abdominal pain: Status: Acute Qualifiers: Abdominal location: lower abdomen, unspecified Qualified Code(s): R10.30 - Lower abdominal pain, unspecified Plan: KUB showed stool, continue docusate. Patient felt sick with Miralax so will DC that. She had one BM today, abdominal pain improved.
[2019-11-08] MEDS: COLACE SYRUP 100 MG UDC PO SCH ×2 (09:12→20:53)
[2019-11-08] MEDS: K-DUR TAB 20 MEQ PO PRN (09:12)
[2019-11-08] MEDS: PREVACID PO SCH (09:12)
[2019-11-08] MEDS: COREG TAB 6.25 MG PO SCH ×2 (09:12→20:53)
[2019-11-08] MEDS: LIPITOR TAB 40 MG PO SCH (09:12)
[2019-11-08] MEDS: XANAX PO PRN (20:54)
[2019-11-09] MEDS: NS 1000 ML 1,000 ML IV SCH ×2 (01:10→08:27)
[2019-11-09 06:19] LABS: BASOPHILS % (AUTO) 0.2 % (0.2-1.0); EOSINOPHILS # (AUTO) 0.1 x10^3/uL (0.0-0.2); EOSINOPHILS % (AUTO) 0.6 % (0.9-2.9); HEMATOCRIT 31.5 % (36.0-47.0); HEMOGLOBIN 10.5 g/dL (12.0-16.0); LYMPHOCYTES # (AUTO) 1.3 X10^3/uL (1.3-2.9); LYMPHOCYTES % (AUTO) 10.1 % (21.0-51.0); MEAN CORPUSCULAR HEMOGLOBIN 29.3 pg (27.0-34.0); MEAN CORPUSCULAR HGB CONC 33.3 g/dL (33.0-35.0); MEAN CORPUSCULAR VOLUME 87.8 fL (80.0-100.0); MEAN PLATELET VOLUME 8.5 fL (7.4-11.0); MONOCYTES # (AUTO) 0.9 x10^3/uL (0.3-0.8); MONOCYTES % (AUTO) 6.8 % (0.0-13.0); NEUTROPHILS # (AUTO) 10.9 x10^3/uL (2.2-4.8); NEUTROPHILS % (AUTO) 82.3 % (42.0-75.0); PLATELET COUNT 299 X10^3/uL (150.0-450.0); RED BLOOD COUNT 3.58 X10^6/uL (3.5-5.4); RED CELL DISTRIBUTION WIDTH 16.3 % (11.6-16.5); WHITE BLOOD COUNT 13.2 X10^3/uL (3.6-10.0)
[2019-11-09 06:34] LABS: ALANINE AMINOTRANSFERASE 39 Units/L (12-78); ALBUMIN 2.2 g/dL (3.4-5.0); ALKALINE PHOSPHATASE 146 Units/L (46-116); ASPARTATE AMINO TRANSFERASE 48 Units/L (15-37); BLOOD UREA NITROGEN 12 mg/dL (7-18); CALCIUM 8.1 mg/dL (8.5-10.1); CARBON DIOXIDE 21.9 mmol/L (21-32); CHLORIDE 106 mmol/L (98-107); COR CA(FOR HYPOALB) 9.5 mg/dL (8.5-10.1); CREATININE 0.83 mg/dL (0.55-1.02); SODIUM 138 mmol/L (136-145); TOTAL PROTEIN 6.5 g/dL (6.4-8.2); eGFR NON BLACK RACES > 60 (>60)
[2019-11-09] MEDS: ESTRACE PO SCH (08:26)
[2019-11-09] MEDS: COREG TAB 6.25 MG PO SCH ×2 (08:26→21:04)
[2019-11-09] MEDS: ROCEPHIN VIAL 1 GRAM 1 G in NS 100 ML IV + SPIKE MINIBAG* 100 ML IV SCH (08:26)
[2019-11-09] MEDS: PREVACID PO SCH (08:26)
[2019-11-09] MEDS: LIPITOR TAB 40 MG PO SCH (08:26)
[2019-11-09] MEDS: LOVENOX INJ 40 MG SYR SC SCH (08:26)
[2019-11-09] MEDS: COLACE SYRUP 100 MG UDC PO SCH (08:35)
[2019-11-09] MEDS: COZAAR PO SCH (09:48)
[2019-11-09] MEDS ORDERED: APRESOLINE INJ 20 MG VIAL IVP ONE (10:40)
[2019-11-09] MEDS ORDERED: APRESOLINE INJ 20 MG VIAL ONE (10:44)
--- NOTE | 2019-11-09 12:24 | PCM.PROG ---
Progress Note Progress Note for Day of Date of Exam: 11/09/19 Subjective Subjective: Patient seen this AM, reports feeling better but has been anxious about being in the hospital. BP elevated overnight with SBP in 200s. Urine culture growing E.coli, sensitive to Rocephin. Resumed home dose losartan, IV hydralazine 10 mg given but BP 205/93. Patient with some crackles on exam, will order CXR and start HCTZ. Past Medical Family Social History Past Med/Fam/Surg Hx: No changes since H&P Allergies: Allergies codeine Allergy (Verified 11/06/19 16:31) Review of Systems ROS: No change since H&P Vital Signs and I&O's Vital Signs: Temperature 98.8 F Pulse Rate [Left Brachial] 106 Pulse Rate 76 Respiratory Rate 24 Blood Pressure [Left Arm] 115/84 Blood Pressure [Right Arm] 135/72 Blood Pressure 205/93 O2 Sat by Pulse Oximetry 94 Intake and Output: Intake & Output 11/06/19 11/07/19 11/08/19 11/09/19 23:59 23:59 23:59 23:59 Intake Total 350 / 350 3456 / 3456 2510 / 2510 678 / 678 Output Total 500 / 500 725 / 725 1150 / 1150 225 / 225 Balance -150 / -150 2731 / 2731 1360 / 1360 453 / 453 Physical Exam Oriented: Person Eyes: Normal Nose: Normal Throat: Normal Respiratory: [place] Cardiovascular: Normal and Edema Auscultation: Bowel Sounds: Normal Tenderness: Normal Skin: Bruising and Other (skin tear on the right forearm ) Musculoskeletal: Normal Psychiatric: Normal Mood Description: Calm Affect: Normal Speech Pattern: Delayed Laboratory and Diagnostics Result Diagrams: 11/09/19 05:25 11/09/19 05:25 Labs: 11/06/19 17:20 Urine,Catheterized Urine Culture - Final Escherichia Coli 11/06/19 19:47 Blood Blood Culture - Preliminary 11/06/19 19:40 Blood Blood Culture - Preliminary Laboratory WBC 13.2 X10^3/uL (3.6-10.0) H 11/09/19 05:25 RBC 3.58 X10^6/uL (3.5-5.4) 11/09/19 05:25 Hgb 10.5 g/dL (12.0-16.0) L 11/09/19 05:25 Hct 31.5 % (36.0-47.0) L 11/09/19 05:25 MCV 87.8 fL (80.0-100.0) 11/09/19 05:25 MCH 29.3 pg (27.0-34.0) 11/09/19 05:25 MCHC 33.3 g/dL (33.0-35.0) 11/09/19 05:25 RDW 16.3 % (11.6-16.5) 11/09/19 05:25 Plt Count 299 X10^3/uL (150.0-450.0) 11/09/19 05:25 Plt Count Comment Adequate (ADEQUATE) 11/08/19 04:19 MPV 8.5 fL (7.4-11.0) 11/09/19 05:25 Neut % (Auto) 82.3 % (42.0-75.0) H 11/09/19 05:25 Lymph % (Auto) 10.1 % (21.0-51.0) L 11/09/19 05:25 [place] % (Auto) 6.8 % (0.0-13.0) 11/09/19 05:25 Eos % (Auto) 0.6 % (0.9-2.9) L 11/09/19 05:25 Baso % (Auto) 0.2 % (0.2-1.0) 11/09/19 05:25 Neut # (Auto) 10.9 x10^3/uL (2.2-4.8) H 11/09/19 05:25 Lymph # (Auto) 1.3 X10^3/uL (1.3-2.9) 11/09/19 05:25 [place] # (Auto) 0.9 x10^3/uL (0.3-0.8) H 11/09/19 05:25 Eos # (Auto) 0.1 x10^3/uL (0.0-0.2) 11/09/19 05:25 Baso # (Auto) 0.0 X10^3/uL (0.0-0.1) 11/09/19 05:25 Absolute Nucleated RBC 0.0 /100WBC 11/09/19 05:25 Total Counted 100 11/08/19 04:19 Neutrophils % (Manual) 87 % (39-76) H 11/08/19 04:19 Band Neutrophils % 6 % (0-10) 11/08/19 04:19 Lymphocytes % (Manual) 4 % (13-43) L 11/08/19 04:19 Monocytes % (Manual) 3 % (4-9) L 11/08/19 04:19 Plt Morphology Comment Normal (NORMAL) 11/08/19 04:19 RBC Morphology Normal (NORMAL) 11/08/19 04:19 Sodium 138 mmol/L (136-145) 11/09/19 05:25 Corrected Sodium TNP 11/09/19 05:25 Potassium 4.1 mmol/L (3.5-5.1) 11/09/19 05:25 Chloride 106 mmol/L (98-107) 11/09/19 05:25 Carbon Dioxide 21.9 mmol/L (21-32) 11/09/19 05:25 BUN 12 mg/dL (7-18) 11/09/19 05:25 Creatinine 0.83 mg/dL (0.55-1.02) 11/09/19 05:25 Est GFR (MDRD) Af Amer > 60 (>60) 11/09/19 05:25 Est GFR (MDRD) Non-Af > 60 (>60) 11/09/19 05:25 Glucose 98 mg/dL (65-99) 11/09/19 05:25 POC Glucose (mg/dL) 106 mg/dL (65-99) H 11/09/19 10:59 Lactic Acid 1.1 mmol/L (0.4-2.0) 11/07/19 05:12 Calcium 8.1 mg/dL (8.5-10.1) L 11/09/19 05:25 Corrected Calcium 9.5 mg/dL (8.5-10.1) 11/09/19 05:25 Magnesium 2.1 mg/dL (1.7-2.9) 11/08/19 04:19 Total Bilirubin 0.30 mg/dL (0.2-1.0) 11/09/19 05:25 AST 48 Units/L (15-37) H 11/09/19 05:25 ALT 39 Units/L (12-78) 11/09/19 05:25 Alkaline Phosphatase 146 Units/L (46-116) H 11/09/19 05:25 Creatine Kinase 699 Units/L (26-192) H 11/08/19 04:19 Total Protein 6.5 g/dL (6.4-8.2) 11/09/19 05:25 Albumin 2.2 g/dL (3.4-5.0) L 11/09/19 05:25 Globulin 4.3 g/dL (2.5-4.5) 11/09/19 05:25 Albumin/Globulin Ratio 0.5 Ratio (1.1-2.1) L 11/09/19 05:25 Specimen Type Catherized urine 11/06/19 17:20 Urine Color Yellow (YELLOW) 11/06/19 17:20 Urine Appearance Cloudy (CLEAR) 11/06/19 17:20 Urine pH 6.5 (5.0 - 8.0) 11/06/19 17:20 Ur Specific [place] 1.010 (1.000-1.030) 11/06/19 17:20 Urine Protein 2+ (NEGATIVE) 11/06/19 17:20 Urine Glucose (UA) Negative (NEGATIVE) 11/06/19 17:20 Urine Ketones Negative (NEGATIVE) 11/06/19 17:20 Urine Occult Blood 4+ (NEGATIVE) 11/06/19 17:20 Urine Nitrite Positive (NEGATIVE) 11/06/19 17:20 Urine Bilirubin Negative (NEGATIVE) 11/06/19 17:20 Urine Urobilinogen Normal (NORMAL) 11/06/19 17:20 Ur Leukocyte Esterase 3+ (NEGATIVE) 11/06/19 17:20 Urine RBC 3-5 /HPF (0-3) A 11/06/19 17:20 Urine WBC 30-50 /HPF (0-5) A 11/06/19 17:20 Ur Squamous Epith Cells Few /HPF (NEGATIVE) 11/06/19 17:20 Urine Bacteria 3+ /HPF (NEGATIVE) 11/06/19 17:20 Ur Culture Indicated? Yes/culture set up 11/06/19 17:20 Plan (1) Hypertension: Status: Acute Qualifiers: Hypertension type: essential hypertension Qualified Code(s): I10 - Essential (primary) hypertension Plan: SBP in 200s, continue losartan. One dose of IV hydralazine given. Will start HCTZ and continue to monitor (2) Sepsis: Status: Acute Qualifiers: Sepsis acute organ dysfunction status: without acute organ dysfunction Sepsis type: sepsis due to unspecified organism Qualified Code(s): A41.9 - Sepsis, unspecified organism Plan: 2/2 to UTI, blood cultures negative elevated WBCs and lactic acid on admission with UA suggestive of infection Continue IVF and antibiotics. Lactate normalized. Patient hemodynamically stable. (3) Traumatic rhabdomyolysis: Status: Acute Qualifiers: Encounter type: initial encounter Qualified Code(s): T79.6XXA - Traumatic ischemia of muscle, initial encounter Plan: CK trended down, DC IVF due to concern for fluid overload. (4) Urinary tract infection: Status: Acute Qualifiers: Hematuria presence: without hematuria Urinary tract infection type: acute cystitis Qualified Code(s): N30.00 - Acute cystitis without hematuria Plan: UA suggestive of infection, culture: E.coli, continue Rocephin. (5) Acute confusion: Status: Acute Plan: likely due to infection or worsening underlying dementia. CT-head negative for acute changes, chronic lacunar infarct (6) Weakness: Status: Acute Plan: PT/OT (7) Hypokalemia: Status: Acute Plan: replace as per protocol (8) Hypomagnesemia: Status: Acute Plan: replace as per protocol. (9) Abdominal pain: Status: Acute Qualifiers: Abdominal location: lower abdomen, unspecified Qualified Code(s): R10.30 - Lower abdominal pain, unspecified Plan: KUB showed stool, continue docusate. (10) Pulmonary edema: Status: Acute Qualifiers: Chronicity: acute Qualified Code(s): J81.0 - Acute pulmonary edema Plan: Crackles on exam with some LE edema. Will get a CXR Currently on 2L, titrate to keep sats > 90%, wean as tolerated
[2019-11-09] MEDS: HYDROCHLOROTHIAZIDE 12.5 MG CAP PO SCH ×2 (12:36→13:23)
[2019-11-09] MEDS: COLACE CAP 100 MG PO SCH ×2 (12:37→21:04)
--- NOTE | 2019-11-09 13:31 | RAD ---
HISTORYSOB, evaluation for pulmonary edema or infection.STUDYCHEST, 1 ISRQHNJLYGLISM29/17/2019.FINDINGSTrachea is midline. There is cardiomegaly with aortic uncoiling. There is a pulmonary edema pattern bilaterally with prominence of central pulmonary vessels and increased interstitial markings in the perihilar regions bilaterally. There is silhouetting of the left hemidiaphragm which may indicate edema or infiltrate or pleural fluid present in the left lung base. No pneumothorax is seen. There is a thoracolumbar scoliosis.IMPRESSIONCardiomegaly with pulmonary edema pattern.Very dense appearing left lower lobe region with silhouetting of the left hemidiaphragm. Findings may indicate infiltrate, edema or pleural fluid.Electronically signed by: MANFRED GAGE (Nov 09, 2019 13:30:12)
[2019-11-09] MEDS: TYLENOL 500 MG TAB EXTRA STRENGTH PO PRN ×2 (14:09→21:05)
[2019-11-09] MEDS: XANAX PO PRN (21:06)
[2019-11-10 05:37] LABS: BASOPHILS # (AUTO) 0.1 X10^3/uL (0.0-0.1); BASOPHILS % (AUTO) 0.7 % (0.2-1.0); EOSINOPHILS # (AUTO) 0.1 x10^3/uL (0.0-0.2); HEMATOCRIT 32.5 % (36.0-47.0); HEMOGLOBIN 10.8 g/dL (12.0-16.0); LYMPHOCYTES # (AUTO) 0.9 X10^3/uL (1.3-2.9); LYMPHOCYTES % (AUTO) 9.5 % (21.0-51.0); MEAN CORPUSCULAR HEMOGLOBIN 28.7 pg (27.0-34.0); MEAN CORPUSCULAR HGB CONC 33.3 g/dL (33.0-35.0); MEAN CORPUSCULAR VOLUME 86.2 fL (80.0-100.0); MEAN PLATELET VOLUME 8.1 fL (7.4-11.0); MONOCYTES # (AUTO) 0.8 x10^3/uL (0.3-0.8); MONOCYTES % (AUTO) 8.8 % (0.0-13.0); NEUTROPHILS # (AUTO) 7.6 x10^3/uL (2.2-4.8); PLATELET COUNT 309 X10^3/uL (150.0-450.0); RED BLOOD COUNT 3.77 X10^6/uL (3.5-5.4); RED CELL DISTRIBUTION WIDTH 16.2 % (11.6-16.5); WHITE BLOOD COUNT 9.4 X10^3/uL (3.6-10.0)
[2019-11-10 05:40] LABS: ALANINE AMINOTRANSFERASE 36 Units/L (12-78); ALBUMIN 2.2 g/dL (3.4-5.0); ALKALINE PHOSPHATASE 141 Units/L (46-116); ASPARTATE AMINO TRANSFERASE 28 Units/L (15-37); BLOOD UREA NITROGEN 9 mg/dL (7-18); CALCIUM 8.3 mg/dL (8.5-10.1); CARBON DIOXIDE 25.9 mmol/L (21-32); CHLORIDE 102 mmol/L (98-107); COR CA(FOR HYPOALB) 9.7 mg/dL (8.5-10.1); CREATININE 0.79 mg/dL (0.55-1.02); SODIUM 137 mmol/L (136-145); TOTAL PROTEIN 6.4 g/dL (6.4-8.2); eGFR NON BLACK RACES > 60 (>60)
[2019-11-10] MEDS ORDERED: APRESOLINE INJ 20 MG VIAL IVP ONE (05:44)
[2019-11-10] MEDS ORDERED: APRESOLINE INJ 20 MG VIAL ONE (05:47)
[2019-11-10] MEDS: TYLENOL 500 MG TAB EXTRA STRENGTH PO PRN ×2 (07:39→14:11)
[2019-11-10] MEDS: ROCEPHIN VIAL 1 GRAM 1 G in NS 100 ML IV + SPIKE MINIBAG* 100 ML IV SCH (08:07)
[2019-11-10] MEDS: COZAAR PO SCH (08:08)
[2019-11-10] MEDS: PREVACID PO SCH (08:09)
[2019-11-10] MEDS: HYDROCHLOROTHIAZIDE 12.5 MG CAP PO SCH (08:09)
[2019-11-10] MEDS: COREG TAB 6.25 MG PO SCH ×2 (08:09→21:23)
[2019-11-10] MEDS: COLACE CAP 100 MG PO SCH (08:09)
[2019-11-10] MEDS: LOVENOX INJ 40 MG SYR SC SCH (08:10)
[2019-11-10] MEDS: LIPITOR TAB 40 MG PO SCH (08:10)
[2019-11-10] MEDS: ESTRACE PO SCH (08:19)
[2019-11-10] MEDS ORDERED: LASIX IVP ONE (10:07)
--- NOTE | 2019-11-10 10:38 | PCM.PROG ---
Progress Note Progress Note for Day of Date of Exam: 11/10/19 Subjective Subjective: Patient seen this AM, sleeping. She reports feeling a little bit better. She is currently on 2L NC. Her BP was elevated last night, requiring one dose of hydralazine 10 mg IV. Her BP currently is 154/70. CXR showed mild CHF. She is currently on Rocephin for UTI. Will give one dose Lasix 20 mg IV. PT/OT to work with patient. Patient lives alone and was found on the floor prior to this admission. CM will discuss patient's needs with son. Past Medical Family Social History Past Med/Fam/Surg Hx: No changes since H&P Allergies: Allergies codeine Allergy (Verified 11/06/19 16:31) Review of Systems ROS: No change since H&P Vital Signs and I&O's Vital Signs: Temperature 99.9 F Pulse Rate [Left Brachial] 106 Pulse Rate 82 Respiratory Rate 18 Blood Pressure [Left Arm] 115/84 Blood Pressure [Right Arm] 135/72 Blood Pressure 154/70 O2 Sat by Pulse Oximetry 96 Intake and Output: Intake & Output 11/07/19 11/08/19 11/09/19 11/10/19 23:59 23:59 23:59 23:59 Intake Total 3456 / 3456 2510 / 2510 1675 / 1675 240 / 240 Output Total 725 / 725 1150 / 1150 2125 / 2125 1000 / 1000 Balance 2731 / 2731 1360 / 1360 -450 / -450 -760 / -760 Physical Exam Oriented: Person Eyes: Normal Nose: Normal Throat: Normal Respiratory: Rales Cardiovascular: Normal and Edema Auscultation: Bowel Sounds: Normal Tenderness: Normal Skin: Bruising and Other (skin tear on the right forearm ) Musculoskeletal: Normal Psychiatric: Normal Mood Description: Calm Affect: Normal Speech Pattern: Clear and Appropriate Laboratory and Diagnostics Result Diagrams: 11/10/19 04:50 11/10/19 04:50 Labs: 11/06/19 17:20 Urine,Catheterized Urine Culture - Final Escherichia Coli 11/06/19 19:47 Blood Blood Culture - Preliminary 11/06/19 19:40 Blood Blood Culture - Preliminary Laboratory WBC 9.4 X10^3/uL (3.6-10.0) 11/10/19 04:50 RBC 3.77 X10^6/uL (3.5-5.4) 11/10/19 04:50 Hgb 10.8 g/dL (12.0-16.0) L 11/10/19 04:50 Hct 32.5 % (36.0-47.0) L 11/10/19 04:50 MCV 86.2 fL (80.0-100.0) 11/10/19 04:50 MCH 28.7 pg (27.0-34.0) 11/10/19 04:50 MCHC 33.3 g/dL (33.0-35.0) 11/10/19 04:50 RDW 16.2 % (11.6-16.5) 11/10/19 04:50 Plt Count 309 X10^3/uL (150.0-450.0) 11/10/19 04:50 Plt Count Comment Adequate (ADEQUATE) 11/08/19 04:19 MPV 8.1 fL (7.4-11.0) 11/10/19 04:50 Neut % (Auto) 80.0 % (42.0-75.0) H 11/10/19 04:50 Lymph % (Auto) 9.5 % (21.0-51.0) L 11/10/19 04:50 [place] % (Auto) 8.8 % (0.0-13.0) 11/10/19 04:50 Eos % (Auto) 1.0 % (0.9-2.9) 11/10/19 04:50 Baso % (Auto) 0.7 % (0.2-1.0) 11/10/19 04:50 Neut # (Auto) 7.6 x10^3/uL (2.2-4.8) H 11/10/19 04:50 Lymph # (Auto) 0.9 X10^3/uL (1.3-2.9) L 11/10/19 04:50 [place] # (Auto) 0.8 x10^3/uL (0.3-0.8) 11/10/19 04:50 Eos # (Auto) 0.1 x10^3/uL (0.0-0.2) 11/10/19 04:50 Baso # (Auto) 0.1 X10^3/uL (0.0-0.1) 11/10/19 04:50 Absolute Nucleated RBC 0.0 /100WBC 11/10/19 04:50 Total Counted 100 11/08/19 04:19 Neutrophils % (Manual) 87 % (39-76) H 11/08/19 04:19 Band Neutrophils % 6 % (0-10) 11/08/19 04:19 Lymphocytes % (Manual) 4 % (13-43) L 11/08/19 04:19 Monocytes % (Manual) 3 % (4-9) L 11/08/19 04:19 Plt Morphology Comment Normal (NORMAL) 11/08/19 04:19 RBC Morphology Normal (NORMAL) 11/08/19 04:19 Sodium 137 mmol/L (136-145) 11/10/19 04:50 Corrected Sodium TNP 11/10/19 04:50 Potassium 3.5 mmol/L (3.5-5.1) 11/10/19 04:50 Chloride 102 mmol/L (98-107) 11/10/19 04:50 Carbon Dioxide 25.9 mmol/L (21-32) 11/10/19 04:50 BUN 9 mg/dL (7-18) 11/10/19 04:50 Creatinine 0.79 mg/dL (0.55-1.02) 11/10/19 04:50 Est GFR (MDRD) Af Amer > 60 (>60) 11/10/19 04:50 Est GFR (MDRD) Non-Af > 60 (>60) 11/10/19 04:50 Glucose 99 mg/dL (65-99) 11/10/19 04:50 POC Glucose (mg/dL) 88 mg/dL (65-99) 11/10/19 05:57 Lactic Acid 1.1 mmol/L (0.4-2.0) 11/07/19 05:12 Calcium 8.3 mg/dL (8.5-10.1) L 11/10/19 04:50 Corrected Calcium 9.7 mg/dL (8.5-10.1) 11/10/19 04:50 Magnesium 2.1 mg/dL (1.7-2.9) 11/08/19 04:19 Total Bilirubin 0.30 mg/dL (0.2-1.0) 11/10/19 04:50 AST 28 Units/L (15-37) 11/10/19 04:50 ALT 36 Units/L (12-78) 11/10/19 04:50 Alkaline Phosphatase 141 Units/L (46-116) H 11/10/19 04:50 Creatine Kinase 699 Units/L (26-192) H 11/08/19 04:19 Total Protein 6.4 g/dL (6.4-8.2) 11/10/19 04:50 Albumin 2.2 g/dL (3.4-5.0) L 11/10/19 04:50 Globulin 4.2 g/dL (2.5-4.5) 11/10/19 04:50 Albumin/Globulin Ratio 0.5 Ratio (1.1-2.1) L 11/10/19 04:50 Specimen Type Catherized urine 11/06/19 17:20 Urine Color Yellow (YELLOW) 11/06/19 17:20 Urine Appearance Cloudy (CLEAR) 11/06/19 17:20 Urine pH 6.5 (5.0 - 8.0) 11/06/19 17:20 Ur Specific [place] 1.010 (1.000-1.030) 11/06/19 17:20 Urine Protein 2+ (NEGATIVE) 11/06/19 17:20 Urine Glucose (UA) Negative (NEGATIVE) 11/06/19 17:20 Urine Ketones Negative (NEGATIVE) 11/06/19 17:20 Urine Occult Blood 4+ (NEGATIVE) 11/06/19 17:20 Urine Nitrite Positive (NEGATIVE) 11/06/19 17:20 Urine Bilirubin Negative (NEGATIVE) 11/06/19 17:20 Urine Urobilinogen Normal (NORMAL) 11/06/19 17:20 Ur Leukocyte Esterase 3+ (NEGATIVE) 11/06/19 17:20 Urine RBC 3-5 /HPF (0-3) A 11/06/19 17:20 Urine WBC 30-50 /HPF (0-5) A 11/06/19 17:20 Ur Squamous Epith Cells Few /HPF (NEGATIVE) 11/06/19 17:20 Urine Bacteria 3+ /HPF (NEGATIVE) 11/06/19 17:20 Ur Culture Indicated? Yes/culture set up 11/06/19 17:20 Plan (1) Hypertension: Status: Acute Qualifiers: Hypertension type: essential hypertension Qualified Code(s): I10 - Essential (primary) hypertension Plan: continue coreg, losartan, increase HCTZ to 25 mg daily Give one dose of Lasix today (2) Sepsis: Status: Acute Qualifiers: Sepsis acute organ dysfunction status: without acute organ dysfunction Sepsis type: sepsis due to unspecified organism Qualified Code(s): A41.9 - Sepsis, unspecified organism Plan: 2/2 to UTI, blood cultures negative elevated WBCs and lactic acid on admission with UA suggestive of infection Continue IVF and antibiotics. Lactate normalized. Patient hemodynamically stable. (3) Traumatic rhabdomyolysis: Status: Acute Qualifiers: Encounter type: initial encounter Qualified Code(s): T79.6XXA - Traumatic ischemia of muscle, initial encounter Plan: CK trended down, PT/OT (4) Urinary tract infection: Status: Acute Qualifiers: Hematuria presence: without hematuria Urinary tract infection type: acute cystitis Qualified Code(s): N30.00 - Acute cystitis without hematuria Plan: UA suggestive of infection, culture: E.coli, continue Rocephin. (5) Acute confusion: Status: Acute Plan: likely due to infection or worsening underlying dementia. CT-head negative for acute changes, chronic lacunar infarct (6) Weakness: Status: Acute Plan: PT/OT (7) Hypokalemia: Status: Acute Plan: replace as per protocol (8) Hypomagnesemia: Status: Acute Plan: replace as per protocol. (9) Pulmonary edema: Status: Acute Qualifiers: Chronicity: acute Qualified Code(s): J81.0 - Acute pulmonary edema Plan: CXR suggestive of mild CHF, will give one dose of Lasix Currently on 2L, titrate to keep sats > 90%, wean as tolerated
[2019-11-10] MEDS: XANAX PO PRN ×2 (21:23→22:49)
[2019-11-11 05:27] LABS: BASOPHILS # (AUTO) 0.1 X10^3/uL (0.0-0.1); BASOPHILS % (AUTO) 0.9 % (0.2-1.0); EOSINOPHILS # (AUTO) 0.1 x10^3/uL (0.0-0.2); EOSINOPHILS % (AUTO) 1.7 % (0.9-2.9); HEMATOCRIT 30.4 % (36.0-47.0); HEMOGLOBIN 10.3 g/dL (12.0-16.0); LYMPHOCYTES # (AUTO) 1.2 X10^3/uL (1.3-2.9); MEAN CORPUSCULAR HEMOGLOBIN 29.3 pg (27.0-34.0); MEAN CORPUSCULAR VOLUME 86.4 fL (80.0-100.0); MEAN PLATELET VOLUME 8.7 fL (7.4-11.0); MONOCYTES % (AUTO) 15.3 % (0.0-13.0); NEUTROPHILS # (AUTO) 4.4 x10^3/uL (2.2-4.8); NEUTROPHILS % (AUTO) 64.1 % (42.0-75.0); PLATELET COUNT 320 X10^3/uL (150.0-450.0); RED BLOOD COUNT 3.52 X10^6/uL (3.5-5.4); RED CELL DISTRIBUTION WIDTH 15.8 % (11.6-16.5); WHITE BLOOD COUNT 6.8 X10^3/uL (3.6-10.0)
[2019-11-11 05:46] LABS: ALANINE AMINOTRANSFERASE 27 Units/L (12-78); ALKALINE PHOSPHATASE 120 Units/L (46-116); ASPARTATE AMINO TRANSFERASE 24 Units/L (15-37); BLOOD UREA NITROGEN 10 mg/dL (7-18); CALCIUM 8.2 mg/dL (8.5-10.1); CARBON DIOXIDE 27.1 mmol/L (21-32); CHLORIDE 100 mmol/L (98-107); COR CA(FOR HYPOALB) 9.8 mg/dL (8.5-10.1); CREATININE 0.91 mg/dL (0.55-1.02); SODIUM 136 mmol/L (136-145); TOTAL PROTEIN 5.9 g/dL (6.4-8.2); eGFR NON BLACK RACES > 60 (>60)
[2019-11-11] MEDS: HYDROCHLOROTHIAZIDE 12.5 MG CAP PO SCH (09:01)
[2019-11-11] MEDS: ROCEPHIN VIAL 1 GRAM 1 G in NS 100 ML IV + SPIKE MINIBAG* 100 ML IV SCH (09:01)
[2019-11-11] MEDS: K-DUR TAB 20 MEQ PO PRN (09:01)
[2019-11-11] MEDS: COZAAR PO SCH (09:02)
[2019-11-11] MEDS: PREVACID PO SCH (09:02)
[2019-11-11] MEDS: LIPITOR TAB 40 MG PO SCH (09:02)
[2019-11-11] MEDS: ESTRACE PO SCH (09:02)
[2019-11-11] MEDS: COREG TAB 6.25 MG PO SCH ×2 (09:02→21:20)
[2019-11-11] MEDS: LOVENOX INJ 40 MG SYR SC SCH (09:03)
--- NOTE | 2019-11-11 09:24 | PCM.PROG ---
Progress Note Progress Note for Day of Date of Exam: 11/11/19 Subjective Subjective: Patient seen at bedside, daughter present, patient appears much more awake and alert this Am, answering questions appropriately. She states she feels really weak and short of breath with ambulation. Daughter and patient interested in swing bed/STR. CM aware and will look into swing bed. BP better controlled overnight. Replace Potassium. Continue Rocephin. Transfer to floor. Remove fuller. Past Medical Family Social History Past Med/Fam/Surg Hx: No changes since H&P Allergies: Allergies codeine Allergy (Verified 11/06/19 16:31) Review of Systems ROS: No change since H&P Vital Signs and I&O's Vital Signs: Temperature 98.7 F Pulse Rate [Left Brachial] 106 Pulse Rate 81 Respiratory Rate 21 Blood Pressure [Left Arm] 115/84 Blood Pressure [Right Arm] 135/72 Blood Pressure 146/65 O2 Sat by Pulse Oximetry 97 Intake and Output: Intake & Output 11/08/19 11/09/19 11/10/19 11/11/19 23:59 23:59 23:59 23:59 Intake Total 2510 / 2510 1675 / 1675 1859 / 1859 440 / 440 Output Total 1150 / 1150 2125 / 2125 3950 / 3950 750 / 750 Balance 1360 / 1360 -450 / -450 -2091 / -2091 -310 / -310 Physical Exam Oriented: Time and Person Eyes: Normal Nose: Normal Throat: Normal Respiratory: Diminished Cardiovascular: Normal and Edema (mild b/l LE edema ) Auscultation: Bowel Sounds: Normal Tenderness: Normal Skin: Bruising and Other (skin tear on the right forearm ) Musculoskeletal: Normal Psychiatric: Normal Mood Description: Calm Affect: Normal Speech Pattern: Clear and Delayed Laboratory and Diagnostics Result Diagrams: 11/11/19 04:05 11/11/19 04:05 Labs: 11/06/19 17:20 Urine,Catheterized Urine Culture - Final Escherichia Coli 11/06/19 19:47 Blood Blood Culture - Preliminary 11/06/19 19:40 Blood Blood Culture - Preliminary Laboratory WBC 6.8 X10^3/uL (3.6-10.0) 11/11/19 04:05 RBC 3.52 X10^6/uL (3.5-5.4) 11/11/19 04:05 Hgb 10.3 g/dL (12.0-16.0) L 11/11/19 04:05 Hct 30.4 % (36.0-47.0) L 11/11/19 04:05 MCV 86.4 fL (80.0-100.0) 11/11/19 04:05 MCH 29.3 pg (27.0-34.0) 11/11/19 04:05 MCHC 34.0 g/dL (33.0-35.0) 11/11/19 04:05 RDW 15.8 % (11.6-16.5) 11/11/19 04:05 Plt Count 320 X10^3/uL (150.0-450.0) 11/11/19 04:05 Plt Count Comment Adequate (ADEQUATE) 11/08/19 04:19 MPV 8.7 fL (7.4-11.0) 11/11/19 04:05 Neut % (Auto) 64.1 % (42.0-75.0) 11/11/19 04:05 Lymph % (Auto) 18.0 % (21.0-51.0) L 11/11/19 04:05 [place] % (Auto) 15.3 % (0.0-13.0) H 11/11/19 04:05 Eos % (Auto) 1.7 % (0.9-2.9) 11/11/19 04:05 Baso % (Auto) 0.9 % (0.2-1.0) 11/11/19 04:05 Neut # (Auto) 4.4 x10^3/uL (2.2-4.8) 11/11/19 04:05 Lymph # (Auto) 1.2 X10^3/uL (1.3-2.9) L 11/11/19 04:05 [place] # (Auto) 1.0 x10^3/uL (0.3-0.8) H 11/11/19 04:05 Eos # (Auto) 0.1 x10^3/uL (0.0-0.2) 11/11/19 04:05 Baso # (Auto) 0.1 X10^3/uL (0.0-0.1) 11/11/19 04:05 Absolute Nucleated RBC 0.0 /100WBC 11/11/19 04:05 Total Counted 100 11/08/19 04:19 Neutrophils % (Manual) 87 % (39-76) H 11/08/19 04:19 Band Neutrophils % 6 % (0-10) 11/08/19 04:19 Lymphocytes % (Manual) 4 % (13-43) L 11/08/19 04:19 Monocytes % (Manual) 3 % (4-9) L 11/08/19 04:19 Plt Morphology Comment Normal (NORMAL) 11/08/19 04:19 RBC Morphology Normal (NORMAL) 11/08/19 04:19 Sodium 136 mmol/L (136-145) 11/11/19 04:05 Corrected Sodium TNP 11/11/19 04:05 Potassium 3.2 mmol/L (3.5-5.1) L 11/11/19 04:05 Chloride 100 mmol/L (98-107) 11/11/19 04:05 Carbon Dioxide 27.1 mmol/L (21-32) 11/11/19 04:05 BUN 10 mg/dL (7-18) 11/11/19 04:05 Creatinine 0.91 mg/dL (0.55-1.02) 11/11/19 04:05 Est GFR (MDRD) Af Amer > 60 (>60) 11/11/19 04:05 Est GFR (MDRD) Non-Af > 60 (>60) 11/11/19 04:05 Glucose 97 mg/dL (65-99) 11/11/19 04:05 POC Glucose (mg/dL) 100 mg/dL (65-99) H 11/11/19 05:34 Lactic Acid 1.1 mmol/L (0.4-2.0) 11/07/19 05:12 Calcium 8.2 mg/dL (8.5-10.1) L 11/11/19 04:05 Corrected Calcium 9.8 mg/dL (8.5-10.1) 11/11/19 04:05 Magnesium 1.7 mg/dL (1.7-2.9) 11/11/19 04:05 Total Bilirubin 0.30 mg/dL (0.2-1.0) 11/11/19 04:05 AST 24 Units/L (15-37) 11/11/19 04:05 ALT 27 Units/L (12-78) 11/11/19 04:05 Alkaline Phosphatase 120 Units/L (46-116) H 11/11/19 04:05 Creatine Kinase 699 Units/L (26-192) H 11/08/19 04:19 Total Protein 5.9 g/dL (6.4-8.2) L 11/11/19 04:05 Albumin 2.0 g/dL (3.4-5.0) L 11/11/19 04:05 Globulin 3.9 g/dL (2.5-4.5) 11/11/19 04:05 Albumin/Globulin Ratio 0.5 Ratio (1.1-2.1) L 11/11/19 04:05 Specimen Type Catherized urine 11/06/19 17:20 Urine Color Yellow (YELLOW) 11/06/19 17:20 Urine Appearance Cloudy (CLEAR) 11/06/19 17:20 Urine pH 6.5 (5.0 - 8.0) 11/06/19 17:20 Ur Specific [place] 1.010 (1.000-1.030) 11/06/19 17:20 Urine Protein 2+ (NEGATIVE) 11/06/19 17:20 Urine Glucose (UA) Negative (NEGATIVE) 11/06/19 17:20 Urine Ketones Negative (NEGATIVE) 11/06/19 17:20 Urine Occult Blood 4+ (NEGATIVE) 11/06/19 17:20 Urine Nitrite Positive (NEGATIVE) 11/06/19 17:20 Urine Bilirubin Negative (NEGATIVE) 11/06/19 17:20 Urine Urobilinogen Normal (NORMAL) 11/06/19 17:20 Ur Leukocyte Esterase 3+ (NEGATIVE) 11/06/19 17:20 Urine RBC 3-5 /HPF (0-3) A 11/06/19 17:20 Urine WBC 30-50 /HPF (0-5) A 11/06/19 17:20 Ur Squamous Epith Cells Few /HPF (NEGATIVE) 11/06/19 17:20 Urine Bacteria 3+ /HPF (NEGATIVE) 11/06/19 17:20 Ur Culture Indicated? Yes/culture set up 11/06/19 17:20 Plan (1) Hypertension: Status: Acute Qualifiers: Hypertension type: essential hypertension Qualified Code(s): I10 - Essential (primary) hypertension Plan: continue coreg, losartan, HCTZ (2) Sepsis: Status: Acute Qualifiers: Sepsis acute organ dysfunction status: without acute organ dysfunction Sepsis type: sepsis due to unspecified organism Qualified Code(s): A41.9 - Sepsis, unspecified organism Plan: 2/2 to UTI, blood cultures negative Resolved (3) Traumatic rhabdomyolysis: Status: Acute Qualifiers: Encounter type: initial encounter Qualified Code(s): T79.6XXA - Traumatic ischemia of muscle, initial encounter Plan: CK trended down, PT/OT (4) Urinary tract infection: Status: Acute Qualifiers: Hematuria presence: without hematuria Urinary tract infection type: acute cystitis Qualified Code(s): N30.00 - Acute cystitis without hematuria Plan: UA suggestive of infection, culture: E.coli, continue Rocephin. (5) Acute confusion: Status: Acute Plan: likely due to infection or worsening underlying dementia. CT-head negative for acute changes, chronic lacunar infarct (6) Weakness: Status: Acute Plan: PT/OT, swing bed for rehab (7) Hypokalemia: Status: Acute Plan: replace as per protocol (8) Hypomagnesemia: Status: Acute Plan: replace as per protocol. (9) Pulmonary edema: Status: Acute Qualifiers: Chronicity: acute Qualified Code(s): J81.0 - Acute pulmonary edema Plan: CXR suggestive of mild CHF, one dose of Lasix given yesterday Currently on 2L, titrate to keep sats > 90%, wean as tolerated
[2019-11-11] MEDS ORDERED: BENADRYL CAP/TAB 25 MG PO PRN (09:25)
[2019-11-11] MEDS: MAGNESIUM SULFATE 1 GRAM/100 mL PREMIX 1 GM/100 ML BAG IV PRN ×2 (15:10→18:21)
[2019-11-11] MEDS ORDERED: COLACE CAP 100 MG PO PRN (21:12)
[2019-11-11] MEDS: XANAX PO PRN (21:20)
[2019-11-12 05:32] LABS: BASOPHILS # (AUTO) 0.1 X10^3/uL (0.0-0.1); BASOPHILS % (AUTO) 0.6 % (0.2-1.0); EOSINOPHILS # (AUTO) 0.2 x10^3/uL (0.0-0.2); EOSINOPHILS % (AUTO) 1.8 % (0.9-2.9); HEMATOCRIT 31.4 % (36.0-47.0); HEMOGLOBIN 10.5 g/dL (12.0-16.0); LYMPHOCYTES % (AUTO) 17.6 % (21.0-51.0); MEAN CORPUSCULAR HEMOGLOBIN 28.9 pg (27.0-34.0); MEAN CORPUSCULAR HGB CONC 33.5 g/dL (33.0-35.0); MEAN CORPUSCULAR VOLUME 86.3 fL (80.0-100.0); MEAN PLATELET VOLUME 8.7 fL (7.4-11.0); MONOCYTES # (AUTO) 1.6 x10^3/uL (0.3-0.8); MONOCYTES % (AUTO) 14.3 % (0.0-13.0); NEUTROPHILS # (AUTO) 7.5 x10^3/uL (2.2-4.8); NEUTROPHILS % (AUTO) 65.7 % (42.0-75.0); PLATELET COUNT 304 X10^3/uL (150.0-450.0); RED BLOOD COUNT 3.63 X10^6/uL (3.5-5.4); RED CELL DISTRIBUTION WIDTH 16.5 % (11.6-16.5)
[2019-11-12 05:51] LABS: ALANINE AMINOTRANSFERASE 38 Units/L (12-78); ALBUMIN 2.1 g/dL (3.4-5.0); ALKALINE PHOSPHATASE 144 Units/L (46-116); ASPARTATE AMINO TRANSFERASE 42 Units/L (15-37); BLOOD UREA NITROGEN 11 mg/dL (7-18); CALCIUM 8.2 mg/dL (8.5-10.1); CARBON DIOXIDE 27.8 mmol/L (21-32); CHLORIDE 101 mmol/L (98-107); COR CA(FOR HYPOALB) 9.7 mg/dL (8.5-10.1); CREATININE 0.94 mg/dL (0.55-1.02); MAGNESIUM 1.8 mg/dL (1.7-2.9); SODIUM 137 mmol/L (136-145); TOTAL PROTEIN 6.1 g/dL (6.4-8.2); eGFR NON BLACK RACES > 60 (>60)
[2019-11-12 06:07] LABS: WHITE BLOOD COUNT 11.9 X10^3/uL (3.6-10.0)
[2019-11-12 06:08] LABS: PLATELET MORPHOLOGY COMMENT NORMAL (NORMAL)
--- NOTE | 2019-11-12 09:10 | PCM.PROG ---
Progress Note Progress Note for Day of Date of Exam: 11/12/19 Subjective Subjective: Patient was seen at bedside, daughter reports patient had a rough night and didn't sleep well. She was restless and agitated. Patient is resting now. She was moved to med surg room and patient usually has some restlessness in new surrounding. She has been eating and drinking well, fuller removed this AM. Patient will be getting STR as swing bed. Past Medical Family Social History Past Med/Fam/Surg Hx: No changes since H&P Allergies: Allergies codeine Allergy (Verified 11/06/19 16:31) Review of Systems ROS: No change since H&P Vital Signs and I&O's Vital Signs: Temperature 99.0 F Pulse Rate [Left Brachial] 86 Pulse Rate 82 Respiratory Rate 24 Blood Pressure [Left Arm] 115/84 Blood Pressure [Right Arm] 172/72 Blood Pressure 154/95 O2 Sat by Pulse Oximetry 92 Intake and Output: Intake & Output 11/09/19 11/10/19 11/11/19 11/12/19 23:59 23:59 23:59 23:59 Intake Total 1675 / 1675 1859 / 1859 1410 / 1410 240 / 240 Output Total 2125 / 2125 3950 / 3950 2400 / 2400 625 / 625 Balance -450 / -450 -2091 / -2091 -990 / -990 -385 / -385 Physical Exam Oriented: Time and Person Eyes: Normal Nose: Normal Throat: Normal Respiratory: Diminished Cardiovascular: Normal Auscultation: Bowel Sounds: Normal Tenderness: Normal Skin: Bruising and Other (skin tear on the right forearm ) Musculoskeletal: Normal Psychiatric: Normal Mood Description: Calm Affect: Normal Speech Pattern: Clear and Delayed Laboratory and Diagnostics Result Diagrams: 11/12/19 05:10 11/12/19 05:10 Labs: 11/06/19 17:20 Urine,Catheterized Urine Culture - Final Escherichia Coli 11/06/19 19:47 Blood Blood Culture - Preliminary 11/06/19 19:40 Blood Blood Culture - Preliminary Laboratory WBC 11.9 X10^3/uL (3.6-10.0) H 11/12/19 05:10 RBC 3.63 X10^6/uL (3.5-5.4) 11/12/19 05:10 Hgb 10.5 g/dL (12.0-16.0) L 11/12/19 05:10 Hct 31.4 % (36.0-47.0) L 11/12/19 05:10 MCV 86.3 fL (80.0-100.0) 11/12/19 05:10 MCH 28.9 pg (27.0-34.0) 11/12/19 05:10 MCHC 33.5 g/dL (33.0-35.0) 11/12/19 05:10 RDW 16.5 % (11.6-16.5) 11/12/19 05:10 Plt Count 304 X10^3/uL (150.0-450.0) 11/12/19 05:10 Plt Count Comment Adequate (ADEQUATE) 11/12/19 05:10 MPV 8.7 fL (7.4-11.0) 11/12/19 05:10 Neut % (Auto) 65.7 % (42.0-75.0) 11/12/19 05:10 Lymph % (Auto) 17.6 % (21.0-51.0) L 11/12/19 05:10 [place] % (Auto) 14.3 % (0.0-13.0) H 11/12/19 05:10 Eos % (Auto) 1.8 % (0.9-2.9) 11/12/19 05:10 Baso % (Auto) 0.6 % (0.2-1.0) 11/12/19 05:10 Neut # (Auto) 7.5 x10^3/uL (2.2-4.8) H 11/12/19 05:10 Lymph # (Auto) 2.0 X10^3/uL (1.3-2.9) 11/12/19 05:10 [place] # (Auto) 1.6 x10^3/uL (0.3-0.8) H 11/12/19 05:10 Eos # (Auto) 0.2 x10^3/uL (0.0-0.2) 11/12/19 05:10 Baso # (Auto) 0.1 X10^3/uL (0.0-0.1) 11/12/19 05:10 Absolute Nucleated RBC 0.0 /100WBC 11/12/19 05:10 Total Counted 100 11/08/19 04:19 Neutrophils % (Manual) 87 % (39-76) H 11/08/19 04:19 Band Neutrophils % 6 % (0-10) 11/08/19 04:19 Lymphocytes % (Manual) 4 % (13-43) L 11/08/19 04:19 Monocytes % (Manual) 3 % (4-9) L 11/08/19 04:19 Plt Morphology Comment Normal (NORMAL) 11/12/19 05:10 RBC Morphology Normal (NORMAL) 11/12/19 05:10 Sodium 137 mmol/L (136-145) 11/12/19 05:10 Corrected Sodium TNP 11/12/19 05:10 Potassium 3.5 mmol/L (3.5-5.1) 11/12/19 05:10 Chloride 101 mmol/L (98-107) 11/12/19 05:10 Carbon Dioxide 27.8 mmol/L (21-32) 11/12/19 05:10 BUN 11 mg/dL (7-18) 11/12/19 05:10 Creatinine 0.94 mg/dL (0.55-1.02) 11/12/19 05:10 Est GFR (MDRD) Af Amer > 60 (>60) 11/12/19 05:10 Est GFR (MDRD) Non-Af > 60 (>60) 11/12/19 05:10 Glucose 106 mg/dL (65-99) H 11/12/19 05:10 POC Glucose (mg/dL) 107 mg/dL (65-99) H 11/12/19 06:29 Lactic Acid 1.1 mmol/L (0.4-2.0) 11/07/19 05:12 Calcium 8.2 mg/dL (8.5-10.1) L 11/12/19 05:10 Corrected Calcium 9.7 mg/dL (8.5-10.1) 11/12/19 05:10 Magnesium 1.8 mg/dL (1.7-2.9) 11/12/19 05:10 Total Bilirubin 0.20 mg/dL (0.2-1.0) 11/12/19 05:10 AST 42 Units/L (15-37) H 11/12/19 05:10 ALT 38 Units/L (12-78) 11/12/19 05:10 Alkaline Phosphatase 144 Units/L (46-116) H 11/12/19 05:10 Creatine Kinase 699 Units/L (26-192) H 11/08/19 04:19 Total Protein 6.1 g/dL (6.4-8.2) L 11/12/19 05:10 Albumin 2.1 g/dL (3.4-5.0) L 11/12/19 05:10 Globulin 4.0 g/dL (2.5-4.5) 11/12/19 05:10 Albumin/Globulin Ratio 0.5 Ratio (1.1-2.1) L 11/12/19 05:10 Specimen Type Catherized urine 11/06/19 17:20 Urine Color Yellow (YELLOW) 11/06/19 17:20 Urine Appearance Cloudy (CLEAR) 11/06/19 17:20 Urine pH 6.5 (5.0 - 8.0) 11/06/19 17:20 Ur Specific [place] 1.010 (1.000-1.030) 11/06/19 17:20 Urine Protein 2+ (NEGATIVE) 11/06/19 17:20 Urine Glucose (UA) Negative (NEGATIVE) 11/06/19 17:20 Urine Ketones Negative (NEGATIVE) 11/06/19 17:20 Urine Occult Blood 4+ (NEGATIVE) 11/06/19 17:20 Urine Nitrite Positive (NEGATIVE) 11/06/19 17:20 Urine Bilirubin Negative (NEGATIVE) 11/06/19 17:20 Urine Urobilinogen Normal (NORMAL) 11/06/19 17:20 Ur Leukocyte Esterase 3+ (NEGATIVE) 11/06/19 17:20 Urine RBC 3-5 /HPF (0-3) A 11/06/19 17:20 Urine WBC 30-50 /HPF (0-5) A 11/06/19 17:20 Ur Squamous Epith Cells Few /HPF (NEGATIVE) 11/06/19 17:20 Urine Bacteria 3+ /HPF (NEGATIVE) 11/06/19 17:20 Ur Culture Indicated? Yes/culture set up 11/06/19 17:20 Plan (1) Hypertension: Status: Acute Qualifiers: Hypertension type: essential hypertension Qualified Code(s): I10 - Essential (primary) hypertension Plan: continue coreg, losartan, HCTZ (2) Sepsis: Status: Acute Qualifiers: Sepsis acute organ dysfunction status: without acute organ dysfunction Sepsis type: sepsis due to unspecified organism Qualified Code(s): A41.9 - Sepsis, unspecified organism Plan: 2/2 to UTI, blood cultures negative Resolved (3) Traumatic rhabdomyolysis: Status: Acute Qualifiers: Encounter type: initial encounter Qualified Code(s): T79.6XXA - Traumatic ischemia of muscle, initial encounter Plan: CK trended down, PT/OT (4) Urinary tract infection: Status: Acute Qualifiers: Hematuria presence: without hematuria Urinary tract infection type: acute cystitis Qualified Code(s): N30.00 - Acute cystitis without hematuria Plan: UA suggestive of infection, culture: E.coli, continue Rocephin today, DC tomorrow (5) Acute confusion: Status: Acute Plan: likely due to infection or worsening underlying dementia. CT-head negative for acute changes, chronic lacunar infarct (6) Weakness: Status: Acute Plan: PT/OT, swing bed for rehab (7) Hypokalemia: Status: Acute Plan: replace as per protocol (8) Hypomagnesemia: Status: Acute Plan: replace as per protocol. (9) Pulmonary edema: Status: Acute Qualifiers: Chronicity: acute Qualified Code(s): J81.0 - Acute pulmonary edema Plan: CXR suggestive of mild CHF, received Lasix, good urine output Currently on 2L, titrate to keep sats > 90%, wean as tolerated
[2019-11-12] MEDS: HYDROCHLOROTHIAZIDE 12.5 MG CAP PO SCH (09:31)
[2019-11-12] MEDS: COZAAR PO SCH (09:31)
[2019-11-12] MEDS: LIPITOR TAB 40 MG PO SCH (09:31)
[2019-11-12] MEDS: PREVACID PO SCH (09:31)
[2019-11-12] MEDS: ROCEPHIN VIAL 1 GRAM 1 G in NS 100 ML IV + SPIKE MINIBAG* 100 ML IV SCH (09:31)
[2019-11-12] MEDS: LOVENOX INJ 40 MG SYR SC SCH (09:32)
[2019-11-12] MEDS: COREG TAB 6.25 MG PO SCH ×2 (09:32→20:12)
[2019-11-12] MEDS: ESTRACE PO SCH (09:32)
[2019-11-12] MEDS: XANAX PO PRN (20:12)
[2019-11-13] MEDS: ROCEPHIN VIAL 1 GRAM 1 G in NS 100 ML IV + SPIKE MINIBAG* 100 ML IV SCH (09:09)
[2019-11-13] MEDS: LOVENOX INJ 40 MG SYR SC SCH (09:10)
[2019-11-13] MEDS: HYDROCHLOROTHIAZIDE 12.5 MG CAP PO SCH (09:11)
[2019-11-13] MEDS: COZAAR PO SCH (09:11)
[2019-11-13] MEDS: LIPITOR TAB 40 MG PO SCH (09:11)
[2019-11-13] MEDS: PREVACID PO SCH (09:11)
[2019-11-13] MEDS: COREG TAB 6.25 MG PO SCH ×2 (09:11→20:35)
[2019-11-13] MEDS: ESTRACE PO SCH (09:11)
[2019-11-13 09:52] LABS: BASOPHILS # (AUTO) 0.1 X10^3/uL (0.0-0.1); BASOPHILS % (AUTO) 0.9 % (0.2-1.0); EOSINOPHILS # (AUTO) 0.1 x10^3/uL (0.0-0.2); EOSINOPHILS % (AUTO) 1.7 % (0.9-2.9); HEMATOCRIT 33.8 % (36.0-47.0); HEMOGLOBIN 11.2 g/dL (12.0-16.0); LYMPHOCYTES # (AUTO) 1.5 X10^3/uL (1.3-2.9); LYMPHOCYTES % (AUTO) 16.8 % (21.0-51.0); MEAN CORPUSCULAR HEMOGLOBIN 28.7 pg (27.0-34.0); MEAN CORPUSCULAR HGB CONC 33.2 g/dL (33.0-35.0); MEAN CORPUSCULAR VOLUME 86.3 fL (80.0-100.0); MEAN PLATELET VOLUME 7.6 fL (7.4-11.0); MONOCYTES # (AUTO) 0.8 x10^3/uL (0.3-0.8); MONOCYTES % (AUTO) 9.1 % (0.0-13.0); NEUTROPHILS # (AUTO) 6.4 x10^3/uL (2.2-4.8); NEUTROPHILS % (AUTO) 71.5 % (42.0-75.0); PLATELET COUNT 384 X10^3/uL (150.0-450.0); RED BLOOD COUNT 3.91 X10^6/uL (3.5-5.4); RED CELL DISTRIBUTION WIDTH 16.5 % (11.6-16.5)
[2019-11-13 09:55] LABS: BLOOD UREA NITROGEN 10 mg/dL (7-18); CALCIUM 8.8 mg/dL (8.5-10.1); CARBON DIOXIDE 31.4 mmol/L (21-32); CHLORIDE 99 mmol/L (98-107); COR NA(FOR HYPERGLY) 138 mmol/L (136-145); MAGNESIUM 1.6 mg/dL (1.7-2.9); SODIUM 138 mmol/L (136-145); eGFR NON BLACK RACES 57 (>60)
[2019-11-13] MEDS: MICRO K EXTEN CAP 10 MEQ PO PRN (10:31)
--- NOTE | 2019-11-13 10:57 | PCM.PROG ---
Progress Note Progress Note for Day of Date of Exam: 11/13/19 Subjective Subjective: Patient seen at bedside, sitting up in the recliner. She reports feeling better, slept well. Daughter at bedside reports patient doing better today. She was able to ambulate with a walker to the bathroom and has been moving OOB to chair. She reports eating ok. She has been voiding after the fuller was removed. Completed Rocephin course for UTI. Continue PT, reviewed labs, replace magnesium PO. Will DC IV line as patient is here for swing bed, all medications are oral. Past Medical Family Social History Past Med/Fam/Surg Hx: No changes since H&P Allergies: Allergies codeine Allergy (Verified 11/06/19 16:31) Review of Systems ROS: No change since H&P Vital Signs and I&O's Vital Signs: Temperature 98.7 F Pulse Rate [Right Brachial] 76 Pulse Rate [Left Brachial] 86 Pulse Rate 82 Respiratory Rate 18 Blood Pressure [Left Arm] 115/84 Blood Pressure [Right Arm] 131/63 Blood Pressure 154/95 O2 Sat by Pulse Oximetry 96 Intake and Output: Intake & Output 11/10/19 11/11/19 11/12/19 11/13/19 23:59 23:59 23:59 23:59 Intake Total 1859 / 1859 1410 / 1410 697 / 697 120 / 120 Output Total 3950 / 3950 2400 / 2400 625 / 625 Balance -2091 / -2091 -990 / -990 72 / 72 120 / 120 Physical Exam Oriented: Time and Person Eyes: Normal Nose: Normal Throat: Normal Respiratory: Diminished Cardiovascular: Normal Auscultation: Bowel Sounds: Normal Tenderness: Normal Skin: Bruising and Other (skin tear on the right forearm ) Musculoskeletal: Normal Psychiatric: Normal Mood Description: Calm Affect: Normal Speech Pattern: Clear and Appropriate Laboratory and Diagnostics Result Diagrams: 11/13/19 09:37 11/13/19 09:37 Labs: 11/06/19 19:47 Blood Blood Culture - Final 11/06/19 19:40 Blood Blood Culture - Final 11/06/19 17:20 Urine,Catheterized Urine Culture - Final Escherichia Coli Laboratory WBC 9.0 X10^3/uL (3.6-10.0) 11/13/19 09:37 RBC 3.91 X10^6/uL (3.5-5.4) 11/13/19 09:37 Hgb 11.2 g/dL (12.0-16.0) L 11/13/19 09:37 Hct 33.8 % (36.0-47.0) L 11/13/19 09:37 MCV 86.3 fL (80.0-100.0) 11/13/19 09:37 MCH 28.7 pg (27.0-34.0) 11/13/19 09:37 MCHC 33.2 g/dL (33.0-35.0) 11/13/19 09:37 RDW 16.5 % (11.6-16.5) 11/13/19 09:37 Plt Count 384 X10^3/uL (150.0-450.0) 11/13/19 09:37 Plt Count Comment Adequate (ADEQUATE) 11/12/19 05:10 MPV 7.6 fL (7.4-11.0) 11/13/19 09:37 Neut % (Auto) 71.5 % (42.0-75.0) 11/13/19 09:37 Lymph % (Auto) 16.8 % (21.0-51.0) L 11/13/19 09:37 [place] % (Auto) 9.1 % (0.0-13.0) 11/13/19 09:37 Eos % (Auto) 1.7 % (0.9-2.9) 11/13/19 09:37 Baso % (Auto) 0.9 % (0.2-1.0) 11/13/19 09:37 Neut # (Auto) 6.4 x10^3/uL (2.2-4.8) H 11/13/19 09:37 Lymph # (Auto) 1.5 X10^3/uL (1.3-2.9) 11/13/19 09:37 [place] # (Auto) 0.8 x10^3/uL (0.3-0.8) 11/13/19 09:37 Eos # (Auto) 0.1 x10^3/uL (0.0-0.2) 11/13/19 09:37 Baso # (Auto) 0.1 X10^3/uL (0.0-0.1) 11/13/19 09:37 Absolute Nucleated RBC 0.1 /100WBC 11/13/19 09:37 Total Counted 100 11/08/19 04:19 Neutrophils % (Manual) 87 % (39-76) H 11/08/19 04:19 Band Neutrophils % 6 % (0-10) 11/08/19 04:19 Lymphocytes % (Manual) 4 % (13-43) L 11/08/19 04:19 Monocytes % (Manual) 3 % (4-9) L 11/08/19 04:19 Plt Morphology Comment Normal (NORMAL) 11/12/19 05:10 RBC Morphology Normal (NORMAL) 11/12/19 05:10 Sodium 138 mmol/L (136-145) 11/13/19 09:37 Corrected Sodium 138 mmol/L (136-145) 11/13/19 09:37 Potassium 3.6 mmol/L (3.5-5.1) 11/13/19 09:37 Chloride 99 mmol/L (98-107) 11/13/19 09:37 Carbon Dioxide 31.4 mmol/L (21-32) 11/13/19 09:37 BUN 10 mg/dL (7-18) 11/13/19 09:37 Creatinine 1.00 mg/dL (0.55-1.02) 11/13/19 09:37 Est GFR (MDRD) Af Amer > 60 (>60) 11/13/19 09:37 Est GFR (MDRD) Non-Af 57 (>60) L 11/13/19 09:37 Glucose 116 mg/dL (65-99) H 11/13/19 09:37 POC Glucose (mg/dL) 94 mg/dL (65-99) 11/13/19 05:05 Lactic Acid 1.1 mmol/L (0.4-2.0) 11/07/19 05:12 Calcium 8.8 mg/dL (8.5-10.1) 11/13/19 09:37 Corrected Calcium 9.7 mg/dL (8.5-10.1) 11/12/19 05:10 Magnesium 1.6 mg/dL (1.7-2.9) L 11/13/19 09:37 Total Bilirubin 0.20 mg/dL (0.2-1.0) 11/12/19 05:10 AST 42 Units/L (15-37) H 11/12/19 05:10 ALT 38 Units/L (12-78) 11/12/19 05:10 Alkaline Phosphatase 144 Units/L (46-116) H 11/12/19 05:10 Creatine Kinase 699 Units/L (26-192) H 11/08/19 04:19 Total Protein 6.1 g/dL (6.4-8.2) L 11/12/19 05:10 Albumin 2.1 g/dL (3.4-5.0) L 11/12/19 05:10 Globulin 4.0 g/dL (2.5-4.5) 11/12/19 05:10 Albumin/Globulin Ratio 0.5 Ratio (1.1-2.1) L 11/12/19 05:10 Specimen Type Catherized urine 11/06/19 17:20 Urine Color Yellow (YELLOW) 11/06/19 17:20 Urine Appearance Cloudy (CLEAR) 11/06/19 17:20 Urine pH 6.5 (5.0 - 8.0) 11/06/19 17:20 Ur Specific [place] 1.010 (1.000-1.030) 11/06/19 17:20 Urine Protein 2+ (NEGATIVE) 11/06/19 17:20 Urine Glucose (UA) Negative (NEGATIVE) 11/06/19 17:20 Urine Ketones Negative (NEGATIVE) 11/06/19 17:20 Urine Occult Blood 4+ (NEGATIVE) 11/06/19 17:20 Urine Nitrite Positive (NEGATIVE) 11/06/19 17:20 Urine Bilirubin Negative (NEGATIVE) 11/06/19 17:20 Urine Urobilinogen Normal (NORMAL) 11/06/19 17:20 Ur Leukocyte Esterase 3+ (NEGATIVE) 11/06/19 17:20 Urine RBC 3-5 /HPF (0-3) A 11/06/19 17:20 Urine WBC 30-50 /HPF (0-5) A 11/06/19 17:20 Ur Squamous Epith Cells Few /HPF (NEGATIVE) 11/06/19 17:20 Urine Bacteria 3+ /HPF (NEGATIVE) 11/06/19 17:20 Ur Culture Indicated? Yes/culture set up 11/06/19 17:20 Plan (1) Hypertension: Status: Acute Qualifiers: Hypertension type: essential hypertension Qualified Code(s): I10 - Essential (primary) hypertension Plan: continue coreg, losartan, HCTZ (2) Sepsis: Status: Acute Qualifiers: Sepsis acute organ dysfunction status: without acute organ dysfunction Sepsis type: sepsis due to unspecified organism Qualified Code(s): A41.9 - Sepsis, unspecified organism Plan: 2/2 to UTI, blood cultures negative Resolved (3) Traumatic rhabdomyolysis: Status: Acute Qualifiers: Encounter type: initial encounter Qualified Code(s): T79.6XXA - Traumatic ischemia of muscle, initial encounter Plan: CK trended down, PT/OT (4) Urinary tract infection: Status: Acute Qualifiers: Hematuria presence: without hematuria Urinary tract infection type: acute cystitis Qualified Code(s): N30.00 - Acute cystitis without hematuria Plan: UA suggestive of infection, culture: E.coli, completed Rocephin course. (5) Acute confusion: Status: Acute Plan: likely due to infection or worsening underlying dementia. CT-head negative for acute changes, chronic lacunar infarct (6) Weakness: Status: Acute Plan: PT/OT, swing bed for rehab (7) Hypokalemia: Status: Acute Plan: replace as per protocol (8) Hypomagnesemia: Status: Acute Plan: replace PO (9) Pulmonary edema: Status: Acute Qualifiers: Chronicity: acute Qualified Code(s): J81.0 - Acute pulmonary edema Plan: Resolved
[2019-11-13] MEDS: COLACE CAP 100 MG PO SCH ×2 (20:34→20:38)
[2019-11-13] MEDS: XANAX PO PRN (20:35)
[2019-11-13] MEDS ORDERED: COLACE SYRUP 100 MG UDC PO SCH (21:00)
[2019-11-14 05:30] LABS: BASOPHILS # (AUTO) 0.1 X10^3/uL (0.0-0.1); BASOPHILS % (AUTO) 0.7 % (0.2-1.0); EOSINOPHILS # (AUTO) 0.2 x10^3/uL (0.0-0.2); EOSINOPHILS % (AUTO) 2.7 % (0.9-2.9); HEMATOCRIT 33.4 % (36.0-47.0); HEMOGLOBIN 11.1 g/dL (12.0-16.0); LYMPHOCYTES # (AUTO) 1.8 X10^3/uL (1.3-2.9); LYMPHOCYTES % (AUTO) 21.4 % (21.0-51.0); MEAN CORPUSCULAR HGB CONC 33.3 g/dL (33.0-35.0); MEAN CORPUSCULAR VOLUME 87.1 fL (80.0-100.0); MEAN PLATELET VOLUME 8.6 fL (7.4-11.0); MONOCYTES # (AUTO) 0.8 x10^3/uL (0.3-0.8); MONOCYTES % (AUTO) 9.5 % (0.0-13.0); NEUTROPHILS # (AUTO) 5.6 x10^3/uL (2.2-4.8); NEUTROPHILS % (AUTO) 65.7 % (42.0-75.0); PLATELET COUNT 398 X10^3/uL (150.0-450.0); RED BLOOD COUNT 3.84 X10^6/uL (3.5-5.4); RED CELL DISTRIBUTION WIDTH 16.7 % (11.6-16.5); WHITE BLOOD COUNT 8.6 X10^3/uL (3.6-10.0)
[2019-11-14 05:50] LABS: ALANINE AMINOTRANSFERASE 43 Units/L (12-78); ALBUMIN 2.4 g/dL (3.4-5.0); ALKALINE PHOSPHATASE 172 Units/L (46-116); ASPARTATE AMINO TRANSFERASE 38 Units/L (15-37); BLOOD UREA NITROGEN 11 mg/dL (7-18); CALCIUM 8.9 mg/dL (8.5-10.1); CARBON DIOXIDE 30.4 mmol/L (21-32); CHLORIDE 100 mmol/L (98-107); COR CA(FOR HYPOALB) 10.2 mg/dL (8.5-10.1); CREATININE 0.86 mg/dL (0.55-1.02); SODIUM 138 mmol/L (136-145); TOTAL PROTEIN 6.9 g/dL (6.4-8.2); eGFR NON BLACK RACES > 60 (>60)
[2019-11-14] MEDS ORDERED: MAG-OX TAB PO SCH (07:00)
--- NOTE | 2019-11-14 08:47 | PCM.PROG ---
Progress Note Progress Note for Day of Date of Exam: 11/14/19 Subjective Subjective: Patient seen at bedside, sitting up eating breakfast. Reports feeling ok, elevated BP this AM. She has not received her morning medications yet. Has been ambulating to the bathroom using a walker. CM working on swing bed, continue PT. Past Medical Family Social History Past Med/Fam/Surg Hx: No changes since H&P Allergies: Allergies codeine Allergy (Verified 11/06/19 16:31) Review of Systems ROS: No change since H&P Vital Signs and I&O's Vital Signs: Temperature 98.0 F Pulse Rate [Right Brachial] 82 Pulse Rate [Left Brachial] 86 Pulse Rate 82 Respiratory Rate 20 Blood Pressure [Left Arm] 115/84 Blood Pressure [Right Arm] 193/91 Blood Pressure 154/95 O2 Sat by Pulse Oximetry 94 Intake and Output: Intake & Output 11/11/19 11/12/19 11/13/19 11/14/19 23:59 23:59 23:59 23:59 Intake Total 1410 / 1410 697 / 697 1180 / 1180 0 / 0 Output Total 2400 / 2400 625 / 625 0 / 0 Balance -990 / -990 72 / 72 1180 / 1180 0 / 0 Physical Exam Oriented: Time and Person Eyes: Normal Nose: Normal Throat: Normal Respiratory: Diminished Cardiovascular: Normal Auscultation: Bowel Sounds: Normal Tenderness: Normal Skin: Bruising and Other (skin tear on the right forearm ) Musculoskeletal: Normal Psychiatric: Normal Mood Description: Calm Affect: Normal Speech Pattern: Clear and Appropriate Laboratory and Diagnostics Result Diagrams: 11/14/19 04:35 11/14/19 04:35 Labs: 11/06/19 19:47 Blood Blood Culture - Final 11/06/19 19:40 Blood Blood Culture - Final 11/06/19 17:20 Urine,Catheterized Urine Culture - Final Escherichia Coli Laboratory WBC 8.6 X10^3/uL (3.6-10.0) 11/14/19 04:35 RBC 3.84 X10^6/uL (3.5-5.4) 11/14/19 04:35 Hgb 11.1 g/dL (12.0-16.0) L 11/14/19 04:35 Hct 33.4 % (36.0-47.0) L 11/14/19 04:35 MCV 87.1 fL (80.0-100.0) 11/14/19 04:35 MCH 29.0 pg (27.0-34.0) 11/14/19 04:35 MCHC 33.3 g/dL (33.0-35.0) 11/14/19 04:35 RDW 16.7 % (11.6-16.5) H 11/14/19 04:35 Plt Count 398 X10^3/uL (150.0-450.0) 11/14/19 04:35 Plt Count Comment Adequate (ADEQUATE) 11/12/19 05:10 MPV 8.6 fL (7.4-11.0) 11/14/19 04:35 Neut % (Auto) 65.7 % (42.0-75.0) 11/14/19 04:35 Lymph % (Auto) 21.4 % (21.0-51.0) 11/14/19 04:35 [place] % (Auto) 9.5 % (0.0-13.0) 11/14/19 04:35 Eos % (Auto) 2.7 % (0.9-2.9) 11/14/19 04:35 Baso % (Auto) 0.7 % (0.2-1.0) 11/14/19 04:35 Neut # (Auto) 5.6 x10^3/uL (2.2-4.8) H 11/14/19 04:35 Lymph # (Auto) 1.8 X10^3/uL (1.3-2.9) 11/14/19 04:35 [place] # (Auto) 0.8 x10^3/uL (0.3-0.8) 11/14/19 04:35 Eos # (Auto) 0.2 x10^3/uL (0.0-0.2) 11/14/19 04:35 Baso # (Auto) 0.1 X10^3/uL (0.0-0.1) 11/14/19 04:35 Absolute Nucleated RBC 0.0 /100WBC 11/14/19 04:35 Total Counted 100 11/08/19 04:19 Neutrophils % (Manual) 87 % (39-76) H 11/08/19 04:19 Band Neutrophils % 6 % (0-10) 11/08/19 04:19 Lymphocytes % (Manual) 4 % (13-43) L 11/08/19 04:19 Monocytes % (Manual) 3 % (4-9) L 11/08/19 04:19 Plt Morphology Comment Normal (NORMAL) 11/12/19 05:10 RBC Morphology Normal (NORMAL) 11/12/19 05:10 Sodium 138 mmol/L (136-145) 11/14/19 04:35 Corrected Sodium TNP 11/14/19 04:35 Potassium 3.7 mmol/L (3.5-5.1) 11/14/19 04:35 Chloride 100 mmol/L (98-107) 11/14/19 04:35 Carbon Dioxide 30.4 mmol/L (21-32) 11/14/19 04:35 BUN 11 mg/dL (7-18) 11/14/19 04:35 Creatinine 0.86 mg/dL (0.55-1.02) 11/14/19 04:35 Est GFR (MDRD) Af Amer > 60 (>60) 11/14/19 04:35 Est GFR (MDRD) Non-Af > 60 (>60) 11/14/19 04:35 Glucose 95 mg/dL (65-99) 11/14/19 04:35 POC Glucose (mg/dL) 92 mg/dL (65-99) 11/14/19 05:24 Lactic Acid 1.1 mmol/L (0.4-2.0) 11/07/19 05:12 Calcium 8.9 mg/dL (8.5-10.1) 11/14/19 04:35 Corrected Calcium 10.2 mg/dL (8.5-10.1) H 11/14/19 04:35 Magnesium 1.6 mg/dL (1.7-2.9) L 11/13/19 09:37 Total Bilirubin 0.30 mg/dL (0.2-1.0) 11/14/19 04:35 AST 38 Units/L (15-37) H 11/14/19 04:35 ALT 43 Units/L (12-78) 11/14/19 04:35 Alkaline Phosphatase 172 Units/L (46-116) H 11/14/19 04:35 Creatine Kinase 699 Units/L (26-192) H 11/08/19 04:19 Total Protein 6.9 g/dL (6.4-8.2) 11/14/19 04:35 Albumin 2.4 g/dL (3.4-5.0) L 11/14/19 04:35 Globulin 4.5 g/dL (2.5-4.5) 11/14/19 04:35 Albumin/Globulin Ratio 0.5 Ratio (1.1-2.1) L 11/14/19 04:35 Specimen Type Catherized urine 11/06/19 17:20 Urine Color Yellow (YELLOW) 11/06/19 17:20 Urine Appearance Cloudy (CLEAR) 11/06/19 17:20 Urine pH 6.5 (5.0 - 8.0) 11/06/19 17:20 Ur Specific [place] 1.010 (1.000-1.030) 11/06/19 17:20 Urine Protein 2+ (NEGATIVE) 11/06/19 17:20 Urine Glucose (UA) Negative (NEGATIVE) 11/06/19 17:20 Urine Ketones Negative (NEGATIVE) 11/06/19 17:20 Urine Occult Blood 4+ (NEGATIVE) 11/06/19 17:20 Urine Nitrite Positive (NEGATIVE) 11/06/19 17:20 Urine Bilirubin Negative (NEGATIVE) 11/06/19 17:20 Urine Urobilinogen Normal (NORMAL) 11/06/19 17:20 Ur Leukocyte Esterase 3+ (NEGATIVE) 11/06/19 17:20 Urine RBC 3-5 /HPF (0-3) A 11/06/19 17:20 Urine WBC 30-50 /HPF (0-5) A 11/06/19 17:20 Ur Squamous Epith Cells Few /HPF (NEGATIVE) 11/06/19 17:20 Urine Bacteria 3+ /HPF (NEGATIVE) 11/06/19 17:20 Ur Culture Indicated? Yes/culture set up 11/06/19 17:20 Plan (1) Hypertension: Status: Acute Qualifiers: Hypertension type: essential hypertension Qualified Code(s): I10 - Essential (primary) hypertension Plan: continue coreg and HCTZ. Will switch losartan to qHS instead of qAM . (2) Sepsis: Status: Acute Qualifiers: Sepsis acute organ dysfunction status: without acute organ dysfunction Sepsis type: sepsis due to unspecified organism Qualified Code(s): A41.9 - Sepsis, unspecified organism Plan: 2/2 to UTI, blood cultures negative Resolved (3) Traumatic rhabdomyolysis: Status: Acute Qualifiers: Encounter type: initial encounter Qualified Code(s): T79.6XXA - Traumatic ischemia of muscle, initial encounter Plan: CK trended down, PT/OT (4) Urinary tract infection: Status: Acute Qualifiers: Hematuria presence: without hematuria Urinary tract infection type: acute cystitis Qualified Code(s): N30.00 - Acute cystitis without hematuria Plan: UA suggestive of infection, culture: E.coli, completed Rocephin course. (5) Acute confusion: Status: Acute Plan: likely due to infection or worsening underlying dementia. CT-head negative for acute changes, chronic lacunar infarct (6) Weakness: Status: Acute Plan: PT/OT, swing bed for rehab (7) Hypokalemia: Status: Acute Plan: replace as per protocol (8) Hypomagnesemia: Status: Acute Plan: replace PO (9) Pulmonary edema: Status: Acute Qualifiers: Chronicity: acute Qualified Code(s): J81.0 - Acute pulmonary edema Plan: Resolved
[2019-11-14] MEDS: HYDROCHLOROTHIAZIDE 12.5 MG CAP PO SCH (09:04)
[2019-11-14] MEDS: LOVENOX INJ 40 MG SYR SC SCH (09:04)
[2019-11-14] MEDS: ESTRACE PO SCH (09:04)
[2019-11-14] MEDS: PREVACID PO SCH (09:04)
[2019-11-14] MEDS: COREG TAB 6.25 MG PO SCH ×2 (09:04→20:50)
[2019-11-14] MEDS: LIPITOR TAB 40 MG PO SCH (09:04)
[2019-11-14] MEDS: TYLENOL 500 MG TAB EXTRA STRENGTH PO PRN (20:50)
[2019-11-14] MEDS: COLACE CAP 100 MG PO SCH (20:51)
[2019-11-14] MEDS ORDERED: COZAAR PO SCH (21:00)
[2019-11-15 05:39] LABS: BASOPHILS # (AUTO) 0.1 X10^3/uL (0.0-0.1); BASOPHILS % (AUTO) 1.2 % (0.2-1.0); EOSINOPHILS # (AUTO) 0.2 x10^3/uL (0.0-0.2); EOSINOPHILS % (AUTO) 2.5 % (0.9-2.9); HEMATOCRIT 32.5 % (36.0-47.0); HEMOGLOBIN 10.8 g/dL (12.0-16.0); LYMPHOCYTES # (AUTO) 2.1 X10^3/uL (1.3-2.9); LYMPHOCYTES % (AUTO) 26.9 % (21.0-51.0); MEAN CORPUSCULAR HEMOGLOBIN 28.7 pg (27.0-34.0); MEAN CORPUSCULAR HGB CONC 33.1 g/dL (33.0-35.0); MEAN CORPUSCULAR VOLUME 86.7 fL (80.0-100.0); MEAN PLATELET VOLUME 8.5 fL (7.4-11.0); MONOCYTES # (AUTO) 0.7 x10^3/uL (0.3-0.8); MONOCYTES % (AUTO) 9.6 % (0.0-13.0); NEUTROPHILS # (AUTO) 4.6 x10^3/uL (2.2-4.8); NEUTROPHILS % (AUTO) 59.8 % (42.0-75.0); PLATELET COUNT 428 X10^3/uL (150.0-450.0); RED BLOOD COUNT 3.75 X10^6/uL (3.5-5.4); RED CELL DISTRIBUTION WIDTH 16.3 % (11.6-16.5); WHITE BLOOD COUNT 7.6 X10^3/uL (3.6-10.0)
[2019-11-15 05:50] LABS: ALANINE AMINOTRANSFERASE 35 Units/L (12-78); ALBUMIN 2.4 g/dL (3.4-5.0); ALKALINE PHOSPHATASE 157 Units/L (46-116); ASPARTATE AMINO TRANSFERASE 26 Units/L (15-37); BLOOD UREA NITROGEN 12 mg/dL (7-18); CALCIUM 8.8 mg/dL (8.5-10.1); CHLORIDE 98 mmol/L (98-107); COR CA(FOR HYPOALB) 10.1 mg/dL (8.5-10.1); SODIUM 137 mmol/L (136-145); TOTAL PROTEIN 6.7 g/dL (6.4-8.2); eGFR NON BLACK RACES > 60 (>60)
--- NOTE | 2019-11-15 08:51 | W.DIS.FURT ---
Summary of Discharge Discharge Summary of Date Date of Exam: 11/15/19 Admission Date Date of Admission: 11/06/19 Admission Diagnosis Hospital Course: Ms. Hope is a 79y/o female who was brought in by family due to worsening confusion after being found on the floor. Patient also has some underlying dementia. In ED, she was found to have a UTI and acute rhabdomyolysis. She was started on IV fluids and Rocephin. She also had elevated BP and received hydralazine. Urine cultures grew E.coli, blood cultures remained negative. Her BP medications were adjusted, HCTZ was added. PT was consulted and recommended rehab. Patient's daughter also wanted to get rehab prior to going home as patient does live alone. Patient's confusion resolved. She completed course of treatment with Rocephin. Her labs were monitored daily and electrolytes were replaced as needed. She was stable for discharge to halfway. Vital Signs: Vital Signs (72 hours) 11/12/19 12:00 11/12/19 16:00 11/12/19 20:00 Temperature 98.3 F 98.3 F 99.3 F Pulse Rate Pulse Rate [Left Brachial] 83 80 89 Pulse Rate [Right Brachial] Respiratory Rate 20 20 20 Blood Pressure [Right Arm] 153/68 150/71 173/79 O2 Sat by Pulse Oximetry 94 L 93 L 95 11/13/19 00:00 11/13/19 04:00 11/13/19 08:00 Temperature 98.8 F 100.1 F H 98.7 F Pulse Rate Pulse Rate [Left Brachial] 81 86 Pulse Rate [Right Brachial] 76 Respiratory Rate 18 18 18 Blood Pressure [Right Arm] 168/76 164/73 131/63 O2 Sat by Pulse Oximetry 94 L 93 L 96 11/13/19 12:00 11/13/19 16:00 11/13/19 20:00 Temperature 98.5 F 97.9 F 98.4 F Pulse Rate Pulse Rate [Left Brachial] Pulse Rate [Right Brachial] 79 83 85 Respiratory Rate 18 18 18 Blood Pressure [Right Arm] 136/64 145/69 156/67 O2 Sat by Pulse Oximetry 92 L 98 95 11/14/19 00:00 11/14/19 04:00 11/14/19 08:00 Temperature 98.2 F 98.3 F 98.0 F Pulse Rate Pulse Rate [Left Brachial] Pulse Rate [Right Brachial] 85 85 82 Respiratory Rate 16 16 20 Blood Pressure [Right Arm] 130/72 153/74 193/91 O2 Sat by Pulse Oximetry 94 L 95 94 L 11/14/19 12:00 11/14/19 16:00 11/14/19 20:00 Temperature 97.5 F L 97.9 F 98.7 F Pulse Rate Pulse Rate [Left Brachial] Pulse Rate [Right Brachial] 83 84 94 H Respiratory Rate 20 20 18 Blood Pressure [Right Arm] 136/75 156/80 166/77 O2 Sat by Pulse Oximetry 95 93 L 94 L 11/14/19 20:19 11/14/19 20:50 11/14/19 21:50 Temperature Pulse Rate 83 Pulse Rate [Left Brachial] Pulse Rate [Right Brachial] Respiratory Rate 20 20 Blood Pressure [Right Arm] O2 Sat by Pulse Oximetry 94 L 11/15/19 00:00 11/15/19 03:57 Temperature 98.6 F 97.9 F Pulse Rate Pulse Rate [Left Brachial] Pulse Rate [Right Brachial] 77 83 Respiratory Rate 16 20 Blood Pressure [Right Arm] 157/75 167/81 O2 Sat by Pulse Oximetry 95 98 Labs: Laboratory Last Values WBC 7.6 X10^3/uL (3.6-10.0) 11/15/19 04:54 RBC 3.75 X10^6/uL (3.5-5.4) 11/15/19 04:54 Hgb 10.8 g/dL (12.0-16.0) L 11/15/19 04:54 Hct 32.5 % (36.0-47.0) L 11/15/19 04:54 MCV 86.7 fL (80.0-100.0) 11/15/19 04:54 MCH 28.7 pg (27.0-34.0) 11/15/19 04:54 MCHC 33.1 g/dL (33.0-35.0) 11/15/19 04:54 RDW 16.3 % (11.6-16.5) 11/15/19 04:54 Plt Count 428 X10^3/uL (150.0-450.0) 11/15/19 04:54 Plt Count Comment Adequate (ADEQUATE) 11/12/19 05:10 MPV 8.5 fL (7.4-11.0) 11/15/19 04:54 Neut % (Auto) 59.8 % (42.0-75.0) 11/15/19 04:54 Lymph % (Auto) 26.9 % (21.0-51.0) 11/15/19 04:54 [place] % (Auto) 9.6 % (0.0-13.0) 11/15/19 04:54 Eos % (Auto) 2.5 % (0.9-2.9) 11/15/19 04:54 Baso % (Auto) 1.2 % (0.2-1.0) H 11/15/19 04:54 Neut # (Auto) 4.6 x10^3/uL (2.2-4.8) 11/15/19 04:54 Lymph # (Auto) 2.1 X10^3/uL (1.3-2.9) 11/15/19 04:54 [place] # (Auto) 0.7 x10^3/uL (0.3-0.8) 11/15/19 04:54 Eos # (Auto) 0.2 x10^3/uL (0.0-0.2) 11/15/19 04:54 Baso # (Auto) 0.1 X10^3/uL (0.0-0.1) 11/15/19 04:54 Absolute Nucleated RBC 0.0 /100WBC 11/15/19 04:54 Total Counted 100 11/08/19 04:19 Neutrophils % (Manual) 87 % (39-76) H 11/08/19 04:19 Band Neutrophils % 6 % (0-10) 11/08/19 04:19 Lymphocytes % (Manual) 4 % (13-43) L 11/08/19 04:19 Monocytes % (Manual) 3 % (4-9) L 11/08/19 04:19 Plt Morphology Comment Normal (NORMAL) 11/12/19 05:10 RBC Morphology Normal (NORMAL) 11/12/19 05:10 Sodium 137 mmol/L (136-145) 11/15/19 04:54 Corrected Sodium TNP 11/15/19 04:54 Potassium 3.4 mmol/L (3.5-5.1) L 11/15/19 04:54 Chloride 98 mmol/L (98-107) 11/15/19 04:54 Carbon Dioxide 32.0 mmol/L (21-32) 11/15/19 04:54 BUN 12 mg/dL (7-18) 11/15/19 04:54 Creatinine 0.80 mg/dL (0.55-1.02) 11/15/19 04:54 Est GFR (MDRD) Af Amer > 60 (>60) 11/15/19 04:54 Est GFR (MDRD) Non-Af > 60 (>60) 11/15/19 04:54 Glucose 101 mg/dL (65-99) H 11/15/19 04:54 POC Glucose (mg/dL) 92 mg/dL (65-99) 11/14/19 05:24 Lactic Acid 1.1 mmol/L (0.4-2.0) 11/07/19 05:12 Calcium 8.8 mg/dL (8.5-10.1) 11/15/19 04:54 Corrected Calcium 10.1 mg/dL (8.5-10.1) 11/15/19 04:54 Magnesium 1.6 mg/dL (1.7-2.9) L 11/15/19 04:54 Total Bilirubin 0.30 mg/dL (0.2-1.0) 11/15/19 04:54 AST 26 Units/L (15-37) 11/15/19 04:54 ALT 35 Units/L (12-78) 11/15/19 04:54 Alkaline Phosphatase 157 Units/L (46-116) H 11/15/19 04:54 Creatine Kinase 699 Units/L (26-192) H 11/08/19 04:19 Total Protein 6.7 g/dL (6.4-8.2) 11/15/19 04:54 Albumin 2.4 g/dL (3.4-5.0) L 11/15/19 04:54 Globulin 4.3 g/dL (2.5-4.5) 11/15/19 04:54 Albumin/Globulin Ratio 0.6 Ratio (1.1-2.1) L 11/15/19 04:54 Specimen Type Catherized urine 11/06/19 17:20 Urine Color Yellow (YELLOW) 11/06/19 17:20 Urine Appearance Cloudy (CLEAR) 11/06/19 17:20 Urine pH 6.5 (5.0 - 8.0) 11/06/19 17:20 Ur Specific [place] 1.010 (1.000-1.030) 11/06/19 17:20 Urine Protein 2+ (NEGATIVE) 11/06/19 17:20 Urine Glucose (UA) Negative (NEGATIVE) 11/06/19 17:20 Urine Ketones Negative (NEGATIVE) 11/06/19 17:20 Urine Occult Blood 4+ (NEGATIVE) 11/06/19 17:20 Urine Nitrite Positive (NEGATIVE) 11/06/19 17:20 Urine Bilirubin Negative (NEGATIVE) 11/06/19 17:20 Urine Urobilinogen Normal (NORMAL) 11/06/19 17:20 Ur Leukocyte Esterase 3+ (NEGATIVE) 11/06/19 17:20 Urine RBC 3-5 /HPF (0-3) A 11/06/19 17:20 Urine WBC 30-50 /HPF (0-5) A 11/06/19 17:20 Ur Squamous Epith Cells Few /HPF (NEGATIVE) 11/06/19 17:20 Urine Bacteria 3+ /HPF (NEGATIVE) 11/06/19 17:20 Ur Culture Indicated? Yes/culture set up 11/06/19 17:20 Reason For Visit: SEPSIS,UTI,RHABDO,UNCONTROLLED HTN Discharge Date Discharge Date: 11/15/19 Discharge Diagnosis All Active Problems (Updated 11/09/19 @ 12:23 by Rylee Ramon) Pulmonary edema (Acute) Abdominal pain (Acute) Hypotension (Acute) Hypomagnesemia (Acute) Hypokalemia (Acute) Sepsis (Acute) Traumatic rhabdomyolysis (Acute) Urinary tract infection (Acute) Acute confusion (Acute) Hypertension, uncontrolled (Acute) Hyponatremia (Acute) Hypertension (Acute) Weakness (Acute) Plan of Treatment: Continue with present treatment and follow up plan. Pt is to keep follow up appointment as instructed and take medications as ordered. Discharge Medications Discharge Medications: codeine Allergy (Verified 11/06/19 16:31) New Prescriptions alprazolam 0.5 mg PO HS PRN 30 Days #30 tab MDD 0.5mg 11/15/19 [Rx] docusate sodium 100 mg PO HS 30 Days #30 cap 11/15/19 [Rx] hydrochlorothiazide 25 mg PO DAILY #30 cap 11/15/19 [Rx] lansoprazole 30 mg PO DAILY #30 cap 11/15/19 [Rx] losartan 100 mg PO HS #30 tab 11/15/19 [Rx] magnesium oxide 400 mg PO BID #14 tab 11/15/19 [Rx] Follow up and Referral Follow Up: 1 Week (PCP) Discharge Disposition Discharge Disposition: skilled nursing
[2019-11-15] MEDS ORDERED: MAG-OX TAB PO SCH (09:00)
[2019-11-15] MEDS: LIPITOR TAB 40 MG PO SCH (09:35)
[2019-11-15] MEDS: PREVACID PO SCH (09:35)
[2019-11-15] MEDS: HYDROCHLOROTHIAZIDE 12.5 MG CAP PO SCH (09:35)
[2019-11-15] MEDS: COREG TAB 6.25 MG PO SCH (09:35)
[2019-11-15] MEDS: ESTRACE PO SCH (09:36)
[2019-11-15] MEDS: LOVENOX INJ 40 MG SYR SC SCH (09:36)
[2019-11-15] MEDS: K-DUR TAB 20 MEQ PO PRN (10:38)
[2019-11-15 11:43] VITALS: BP 187/88
[2019-11-15] MEDS ORDERED: MIRALAX POWDER (1 DOSE 17 G) PO SCH (12:00)
[2019-11-15] MEDS ORDERED: COLACE CAP 100 MG PO SCH (12:00)
== END 2019-11-15 14:20 | DRG 871 ==
LOC: ER 16:14 → ICU 19:57 → MED/SURG 11-11 14:50
PROVIDERS: ADMIT Internal Medicine; ATTEND Internal Medicine
CPT/HCPCS: 36415; 51702; 70450; 71010; 71045; 72170; 74022; 80048; 80053; 81001; 82550; 83605; 83735; 84132; 85025; 87040; 87086; 87088; 87186; 92507; 92523; 94760; 96365; 96367; 96374; 96375; 97110; 97162; 97166; 97530; 97535; 99284; A4216; A4222; J0360; J0696; J1650; J1885; J1940; J3475; J3480; J7030; J7050

== ENCOUNTER 2024-07-17 03:57 | Inpatient (IN) ==
[2024-07-17] MEDS: ATIVAN INJ 2 MG VIAL IVP ONE (04:16)
--- NOTE | 2024-07-17 04:39 | DR.NAUSEAF ---
HPI Time Seen Time Seen by Provider: 07/17/24 04:18 Primary Care Physician Primary Care Physician: Dr. Lopez HPI Comment HPI Comment: History as below. Complaints Chief Complaint Doctors Comments: Patient is 84yr old female in ER via EMS with generalized jerking and AMS. Patient have had frequent falls recently. In the ER, she is not answering questions. She is noted having generalized involuntary jerking. She was vomiting before coming to ER tonight. Chief Complaint:: Patient brought in er via ems with involuntary jerking, nausea, and vomiting since last night after a fall. Patient alert and oriented to name and place but unable to answer other questions. Involuntary jerking present upon arival. Patients mental status is altered. COVID-19 Coronavirus risk:travel/contact w/high risk person: No Has patient experienced Coronavirus symptoms: No Reviewed Nurses Notes Reviewed: Yes Source History Provided: Patient and EMS Mode of Arrival Mode of Arrival: EMS Timing Onset of Chief Complaint: 07/16/24 PMH PMH Past Medical History: Yes Past Medical History: Arthritis, Coronary Artery Disease, Dementia and Hypertension Past Surgical History: Yes Surgical History: Angioplasty/Stents, Hysterectomy and Tonsillectomy Family History History of Family Medical Conditions: Yes Family Medical History: Cancer, Sudden Cardiac and Hypertension Social History Does patient currently use any type of tobacco product: No Have you used tobacco products in the last 12 months: No Type of Tobacco Use: None Does any household member use tobacco: No Alcohol Use: None Do you use any recreational Drugs:: No Lives With: Family Lives Where: Home Travel Risk Coronavirus risk:travel/contact w/high risk person: No Has patient experienced Coronavirus symptoms: No Infectious screening Have you traveled outside the country in the last 6 months?: No Isolation: Standard ROS Review of Systems Constitutional: Weakness and Fatigue; negative Fever Eyes: No Symptoms Reported ENTM: negative Nose Discharge or Nose Congestion Respiratoy: Short of Breath; negative Moist Cough Cardiovascular: negative Palpitations Gastrointestinal/Abdominal: Abdominal Pain and Vomiting Genitourinary: No Symptoms Reported Neurological: negative Headache or Dizziness Musculoskeletal: No Symptoms Reported Integumentary: negative Rash or Juandice Hematologic/Lymphatic: No Symptoms Reported Endocrine: Increased Thirst Psychiatric: No Symptoms Reported All Other Systems: Reviewed and Negative PE Vital Signs Vitals: Vital Signs Temperature 98.0 F Pulse Rate 66 Pulse Rate 68 Pulse Rate 72 Pulse Rate 65 Pulse Rate 66 Pulse Rate 64 Pulse Rate 65 Pulse Rate 66 Pulse Rate 72 Pulse Rate 71 Pulse Rate 72 Pulse Rate 78 Respiratory Rate 14 Respiratory Rate 19 Respiratory Rate 23 Respiratory Rate 15 Respiratory Rate 14 Respiratory Rate 10 Respiratory Rate 26 Blood Pressure 157/78 Blood Pressure 155/73 Blood Pressure 173/79 Blood Pressure 186/81 Blood Pressure 186/81 Blood Pressure 186/81 O2 Sat by Pulse Oximetry 100 O2 Sat by Pulse Oximetry 100 O2 Sat by Pulse Oximetry 99 O2 Sat by Pulse Oximetry 100 O2 Sat by Pulse Oximetry 98 O2 Sat by Pulse Oximetry 99 O2 Sat by Pulse Oximetry 97 O2 Sat by Pulse Oximetry 96 O2 Sat by Pulse Oximetry 74 O2 Sat by Pulse Oximetry 79 O2 Sat by Pulse Oximetry 82 O2 Sat by Pulse Oximetry 75 General Limitations: Altered Mental Status General Appearance: In No Apparent Distress Head Head Exam: Atraumatic Eyes Eye exam: Normal Appearance ENT ENT Exam: Normal Exam, Normal Oropharynx, Normal External Ear Exam and TM's Normal Bilaterally Neck Neck Exam: Normal Inspection and Trachea Midline; negative Tenderness Chest Chest Inspection: Normal Inspection and Symmetric Chest Wall Rise; negative Tenderness Respiratory Respiratory Exam: Normal Lung Sounds Bilat; negative Accessory Muscle Use, Chest Wall Tenderness or Respiratory Distress Respiratory Exam: Bilateral: Rhonchi Cardiovascular Cardiovascular Exam: Regular Rate, Normal Rhythm and Normal Heart Sounds; negative Systolic Murmur or Diastolic Murmur Abdominal Exam Abdominal Exam: Normal Bowel Sounds, Soft and Tenderness Rectal Rectal Exam: Deferred External Exam: Female: Deferred : Speculum Exam (Female): Deferred : Bimanual Exam (female): Deferred Extremities Extremities Exam: Normal Inspection and Normal Capillary Refill; negative Tenderness Back Back Exam: Normal Inspection; negative (R) CVA Tenderness or (L) CVA Tenderness Neurologic Neurological Exam: Motor Sensory Deficit; negative Oriented X3 Psychiatric Psychiatric Exam: Flat Affect Skin Skin Exam: Dry; negative Rash MDM Differential Diagnosis Differential Diagnosis: Considerations may Include:: Bowel Obstruction, Inflammatory BD, Pancreatitis, Urinary Tract Infection, Urolithiasis and Other (CVA, TIA, SEIZURE.) COURSE Treatment Treatment: See orders done while patient was in ER. Labs, CT and Xray noted and discussed with family. Patient admitted to hospital for further manageemnt. Education/Counseling Education/Counseling: Family Educated On: Diagnosis ROR Labs Reviewed Laboratory Results Reviewed?: Yes 07/17/24 05:05 07/17/24 05:05 Laboratory: WBC 8.9 X10^3/uL (3.6-10.0) 07/17/24 05:05 RBC 4.28 X10^6/uL (3.5-5.4) 07/17/24 05:05 Hgb 12.1 g/dL (12.0-16.0) 07/17/24 05:05 Hct 37.7 % (36.0-47.0) 07/17/24 05:05 MCV 88.0 fL (80.0-100.0) 07/17/24 05:05 MCH 28.2 pg (27.0-34.0) 07/17/24 05:05 MCHC 32.1 g/dL (33.0-35.0) L 07/17/24 05:05 RDW 17.9 % (11.6-16.5) H 07/17/24 05:05 Plt Count 267 X10^3/uL (150.0-450.0) 07/17/24 05:05 MPV 8.2 fL (7.4-11.0) 07/17/24 05:05 Neut % (Auto) 77.4 % (42.0-75.0) H 07/17/24 05:05 Lymph % (Auto) 14.8 % (21.0-51.0) L 07/17/24 05:05 [place] % (Auto) 5.8 % (0.0-13.0) 07/17/24 05:05 Eos % (Auto) 1.2 % (0.9-2.9) 07/17/24 05:05 Baso % (Auto) 0.8 % (0.2-1.0) 07/17/24 05:05 Neut # (Auto) 6.8 x10^3/uL (2.2-4.8) H 07/17/24 05:05 Lymph # (Auto) 1.3 X10^3/uL (1.3-2.9) 07/17/24 05:05 [place] # (Auto) 0.5 x10^3/uL (0.3-0.8) 07/17/24 05:05 Eos # (Auto) 0.1 x10^3/uL (0.0-0.2) 07/17/24 05:05 Baso # (Auto) 0.1 X10^3/uL (0.0-0.1) 07/17/24 05:05 Absolute Nucleated RBC 0.0 /100WBC 07/17/24 05:05 Sodium 134 mmol/L (136-145) L 07/17/24 05:05 Corrected Sodium 134 mmol/L (136-145) L 07/17/24 05:05 Potassium 3.9 mmol/L (3.5-5.1) 07/17/24 05:05 Chloride 99 mmol/L (98-107) 07/17/24 05:05 Carbon Dioxide 31.4 mmol/L (21-32) 07/17/24 05:05 BUN 24 mg/dL (7-18) H 07/17/24 05:05 Creatinine 1.26 mg/dL (0.55-1.02) H 07/17/24 05:05 Est GFR (MDRD) Af Amer 52 (>60) L 07/17/24 05:05 Est GFR (MDRD) Non-Af 43 (>60) L 07/17/24 05:05 Glucose 111 mg/dL (65-99) H 07/17/24 05:05 Lactic Acid 1.1 mmol/L (0.4-2.0) 07/17/24 05:05 Calcium 9.1 mg/dL (8.5-10.1) 07/17/24 05:05 Corrected Calcium TNP 07/17/24 05:05 Total Bilirubin 0.30 mg/dL (0.2-1.0) 07/17/24 05:05 AST 16 Units/L (15-37) 07/17/24 05:05 ALT 15 Units/L (12-78) 07/17/24 05:05 Alkaline Phosphatase 87 Units/L (46-116) 07/17/24 05:05 Creatine Kinase 80 Units/L (26-192) 07/17/24 05:05 Troponin I High Sens 7.1 ng/L (4.0-60.0) 07/17/24 05:05 Total Protein 7.2 g/dL (6.4-8.2) 07/17/24 05:05 Albumin 3.6 g/dL (3.4-5.0) 07/17/24 05:05 Globulin 3.6 g/dL (2.5-4.5) 07/17/24 05:05 Albumin/Globulin Ratio 1.0 Ratio (1.1-2.1) L 07/17/24 05:05 Amylase 85 Units/L (25-115) 07/17/24 05:05 Lipase 96 Units/L (16-77) H 07/17/24 05:05 Specimen Type Catherized urine 07/17/24 04:48 Urine Color Straw (YELLOW) 07/17/24 04:48 Urine Appearance Cloudy (CLEAR) 07/17/24 04:48 Urine pH 6.0 (5.0 - 8.0) 07/17/24 04:48 Ur Specific [place] 1.015 (1.000-1.030) 07/17/24 04:48 Urine Protein 1+ (NEGATIVE) 07/17/24 04:48 Urine Glucose (UA) Negative (NEGATIVE) 07/17/24 04:48 Urine Ketones Negative (NEGATIVE) 07/17/24 04:48 Urine Blood Negative (NEGATIVE) 07/17/24 04:48 Urine Nitrite Positive (NEGATIVE) 07/17/24 04:48 Urine Bilirubin Negative (NEGATIVE) 07/17/24 04:48 Urine Urobilinogen Normal (NORMAL) 07/17/24 04:48 Ur Leukocyte Esterase Negative (NEGATIVE) 07/17/24 04:48 Urine RBC 0-2 /HPF (0-3) 07/17/24 04:48 Urine WBC 0-2 /HPF (0-5) 07/17/24 04:48 Ur Squamous Epith Cells Rare /HPF (NEGATIVE) 07/17/24 04:48 Urine Bacteria 4+ /HPF (NEGATIVE) 07/17/24 04:48 Ur Culture Indicated? Yes/culture set up 07/17/24 04:48 Urine Opiates Screen Negative (NEG=<300) 07/17/24 04:48 Urine Methadone Screen Negative (NEG=<300) 07/17/24 04:48 Ur Barbiturates Screen Negative (NEG=<200) 07/17/24 04:48 Ur Phencyclidine Scrn Negative (NEG=<25) 07/17/24 04:48 Ur Amphetamines Screen Negative (NEG=<1000) 07/17/24 04:48 U Benzodiazepines Scrn Negative (NEG=<200) 07/17/24 04:48 Urine Cocaine Screen Negative (NEG=<300) 07/17/24 04:48 U Marijuana (THC) Screen Negative (NEG=<50) 07/17/24 04:48 SARS-CoV-2 (PCR) Negative (NEGATIVE) 07/17/24 04:32 Influenza Type A (PCR) Negative (NEGATIVE) 07/17/24 04:32 Influenza Type B (PCR) Negative (NEGATIVE) 07/17/24 04:32 RSV (PCR) Negative (NEGATIVE) 07/17/24 04:32 XRAY XRAY Interpreted by: Radiologist (Report noted.) Opioid Opioid Risk Tool Age (Karthik box if 16-45): No History of Preadolescent Sexual Abuse: No Total: 0 Total Score Risk Category: Low Risk Copyright: Ousmane PORTILLO predicting aberrant behaviors Discharge Plan Diagnosis Discharge Problem: Jerking, Frequent falls, Dehydration AMS (altered mental status) Qualifiers: Altered mental status type: transient alteration of awareness Qualified Code(s): R40.4 - Transient alteration of awareness UTI (urinary tract infection) Qualifiers: Urinary tract infection type: site unspecified Hematuria presence: with hematuria Qualified Code(s): N39.0 - Urinary tract infection, site not specified ; R31.9 - Hematuria, unspecified Discharge Plan Patient Disposition: ADMITTED INPATIENT Condition: Stable
--- NOTE | 2024-07-17 04:54 | CT ---
PROCEDURE: CT Head without IV Contrast. HISTORY: ALTERED MENTAL STATUS, INVOLUNTARY JERKING.; . TECHNIQUE: Axial images were performed through the head without the administration of IV contrast wit h multiplanar reformations . Dose reduction techniques including Automated Exposure Control (AEC) and adjustment of mA and kV were utilized . COMPARISON: 09/13/2023. TECHNICAL QUALITY: Satisfactory. FINDINGS: Brain shows no mass, hemorrhage, or acute stroke. Moderate periventricular old micro ischemic changes. [id number] diffuse cerebral and cerebella r atrophy. Ventricles are normal size for patient's age. No acute skull or scalp abnormality. Visualized sinuses and mastoids are clear. IMPRESSION: 1. No acute intracranial abnormality. 2. Senescent changes. THIS IS AN ELECTRONICALLY VERIFIED FINAL REPORT 07/17/2024 4:50 AM - Electronically signed by Toan Bernabe MD
[2024-07-17 04:58] LABS: BILIRUBIN,URINE NEGATIVE (NEGATIVE); BLOOD/HEMOGLOBIN,URINE NEGATIVE (NEGATIVE); GLUCOSE, URINE NEGATIVE (NEGATIVE); KETONES,URINE NEGATIVE (NEGATIVE); LEUKOCYTE ESTERASE ,URINE NEGATIVE (NEGATIVE); NITRITES,URINE POSITIVE (NEGATIVE); PROTEIN,URINE 1+ (NEGATIVE); UROBILINOGEN,URINE NORMAL (NORMAL)
--- NOTE | 2024-07-17 04:58 | CT ---
PROCEDURE: CT Abdomen and Pelvis without IV Contrast. HISTORY: ABD PAIN; PT'S FAMILY STATES" HE WOKE UP ABOUT TEN MINUTES AGO AND COMPLAINED OF DIFFICULITY BREATHING. HE HAD BEEN RUNNING A FEVER OFF AND ON YESTERDAY." . TECHNIQUE: Axial images were performed through the abdomen and pelvis without the administration of I V contrast with multiplanar reformations . Oral contrast was notadministered . Dose reduction techniq ues including Automated Exposure Control (AEC) and adjustment of mA and kV were utilized .. COMPARISON: None. TECHNICAL QUALITY: Satisfactory. FINDINGS: Clear lung bases. Moderate hiatal hernia. Liver, spleen, adrenals, and pancreas show no abnormality. Kidneys show no stones or obstruction. Normal biliary tract. No ascites or pneumoperitoneum. Mild atherosclerosis aorta. No lymphadenopathy. Mild colonic diverticulosis. No bowel obstruction or inflammation. Appendix appears normal. Pelvis shows previous hysterectomy and no masses or free fluid. Normal urinary bladder. No acute bony abnormality. IMPRESSION: 1. Mild colonic diverticulosis. 2. Moderate hiatal hernia. 3. No other significant abnormality identified. THIS IS AN ELECTRONICALLY VERIFIED FINAL REPORT 07/17/2024 4:54 AM - Electronically signed by Toan Bernabe MD
[2024-07-17 05:10] LABS: APPEARANCE,URINE CLOUDY (CLEAR); COLOR,URINE STRAW (YELLOW)
[2024-07-17 05:13] LABS: BACTERIA,URINE 4+ /HPF (NEGATIVE); RBC,URINE 0-2 /HPF (0-3); SQUAMOUS EPITHELIAL CELL,UR RARE /HPF (NEGATIVE)
[2024-07-17 05:22] LABS: BASOPHILS # (AUTO) 0.1 X10^3/uL (0.0-0.1); BASOPHILS % (AUTO) 0.8 % (0.2-1.0); EOSINOPHILS # (AUTO) 0.1 x10^3/uL (0.0-0.2); EOSINOPHILS % (AUTO) 1.2 % (0.9-2.9); HEMATOCRIT 37.7 % (36.0-47.0); HEMOGLOBIN 12.1 g/dL (12.0-16.0); LYMPHOCYTES # (AUTO) 1.3 X10^3/uL (1.3-2.9); LYMPHOCYTES % (AUTO) 14.8 % (21.0-51.0); MEAN CORPUSCULAR HEMOGLOBIN 28.2 pg (27.0-34.0); MEAN CORPUSCULAR HGB CONC 32.1 g/dL (33.0-35.0); MEAN PLATELET VOLUME 8.2 fL (7.4-11.0); MONOCYTES # (AUTO) 0.5 x10^3/uL (0.3-0.8); MONOCYTES % (AUTO) 5.8 % (0.0-13.0); NEUTROPHILS # (AUTO) 6.8 x10^3/uL (2.2-4.8); NEUTROPHILS % (AUTO) 77.4 % (42.0-75.0); PLATELET COUNT 267 X10^3/uL (150.0-450.0); RED BLOOD COUNT 4.28 X10^6/uL (3.5-5.4); RED CELL DISTRIBUTION WIDTH 17.9 % (11.6-16.5); WHITE BLOOD COUNT 8.9 X10^3/uL (3.6-10.0)
--- NOTE | 2024-07-17 05:22 | RAD ---
PROCEDURE: Chest X-ray 1 View. HISTORY: ASPIRATION; PT'S FAMILY STATES" HE WOKE UP ABOUT TEN MINUTES AGO AND COMPLAINED OF DIFFICULI TY BREATHING. HE HAD BEEN RUNNING A FEVER OFF AND ON YESTERDAY." . TECHNIQUE: AP view. COMPARISON: 09/13/2023. TECHNICAL QUALITY: Limited inspiration. FINDINGS: Normal size heart. Mediastinum and hilar regions show no masses or lymphadenopathy. Normal central vascularity. No pulmonary consolidation, masses, pleural fluid, or pneumothorax. No acute bony abnormality. IMPRESSION: No evidence of active cardiopulmonary disease. THIS IS AN ELECTRONICALLY VERIFIED FINAL REPORT 07/17/2024 5:19 AM - Electronically signed by Toan Bernabe MD
[2024-07-17 05:32] LABS: ALANINE AMINOTRANSFERASE 15 Units/L (12-78); ALBUMIN 3.6 g/dL (3.4-5.0); ALKALINE PHOSPHATASE 87 Units/L (46-116); AMYLASE 85 Units/L (25-115); ASPARTATE AMINO TRANSFERASE 16 Units/L (15-37); BLOOD UREA NITROGEN 24 mg/dL (7-18); CALCIUM 9.1 mg/dL (8.5-10.1); CARBON DIOXIDE 31.4 mmol/L (21-32); CHLORIDE 99 mmol/L (98-107); COR NA(FOR HYPERGLY) 134 mmol/L (136-145); CREATINE KINASE 80 Units/L (26-192); CREATININE 1.26 mg/dL (0.55-1.02); GLUCOSE 111 mg/dL (65-99); LIPASE 96 Units/L (16-77); POTASSIUM 3.9 mmol/L (3.5-5.1); SODIUM 134 mmol/L (136-145); TOTAL PROTEIN 7.2 g/dL (6.4-8.2); eGFR NON BLACK RACES 43 (>60)
[2024-07-17] MEDS: ROCEPHIN VIAL 1 GRAM 1 G in NS 100 ML IV 100 ML IV ONE (05:49)
[2024-07-17] MEDS: NS 1,000 ML IV 1,000 ML IV SCH (08:02)
[2024-07-17 11:25] VITALS: BMI 24.9
--- NOTE | 2024-07-17 12:35 | DR.H&P ---
H&P History & Physical for Day of: H&P Date: 07/17/24 Chief Complaint Chief Complaint: Altered mental status History of Present Illness History of Present Illness: Patient is a 84-year-old female with a medical history of dementia, hypertension, arthritis presenting to the ER with acute altered mental status. Per her son, yesterday patient was acutely confused and fell. He took her to the ER at which she was noted to have some "jerking" movements that resolved. He states she has not been complaining about any burning with urination or fevers. Labs/imaging: WBC 8.9, hemoglobin 12.1, platelets 267, sodium 134, potassium 3.9, creatinine 1.26, glucose 111, UDS negative, UA consistent with infection, urine/blood cultures pending, COVID/flu/RSV negative, CT of the head was obtained that revealed no acute intracranial findings, chest x-ray negative, CT abdomen pelvis no acute intra- abdominal findings, troponin negative. Patient was admitted for altered mental status due to acute cystitis. She was started on IV fluids normal saline at 75 mL/h and antibiotics IV Rocephin daily. Restart home medications. Otherwise continue with current treatment plan. Continue closely monitor and follow-up labs/imaging. Past Medical History Past Medical History: Arthritis, Coronary Artery Disease, Dementia and Hypertension Past Surgical History Surgical History: Angioplasty/Stents, Hysterectomy and Tonsillectomy Family History Family Medical History: Cancer, Sudden Cardiac and Hypertension Social History Does patient currently use any type of tobacco product: No Have you used tobacco products in the last 12 months: No Type of Tobacco Use: None Does any household member use tobacco: No Alcohol Use: None Medications Home Medications: Home Medications Medication Instructions Recorded Confirmed Type atorvastatin 40 mg tablet 40 mg PO DAILY 11/06/19 07/17/24 History carvedilol 6.25 mg tablet 6.25 mg PO BID 11/06/19 07/17/24 History losartan 100 mg tablet 100 mg PO DAILY 03/21/22 07/17/24 History hydrocodone 5 mg-acetaminophen 325 1 tab PO TID PRN 09/13/23 07/17/24 History mg tablet lansoprazole 30 mg capsule,delayed 30 mg PO BID 09/13/23 07/17/24 History release ketoconazole 2 % topical cream 1 applic topical TID 07/17/24 07/17/24 History sertraline 100 mg tablet 100 mg PO QDAY 07/17/24 07/17/24 History Allergies Allergies Allergy/AdvReac Type Severity Reaction Status Date / Time codeine Allergy Verified 03/21/22 14:08 Labs 07/17/24 05:05 07/17/24 05:05 Labs: Laboratory WBC 8.9 X10^3/uL (3.6-10.0) 07/17/24 05:05 RBC 4.28 X10^6/uL (3.5-5.4) 07/17/24 05:05 Hgb 12.1 g/dL (12.0-16.0) 07/17/24 05:05 Hct 37.7 % (36.0-47.0) 07/17/24 05:05 MCV 88.0 fL (80.0-100.0) 07/17/24 05:05 MCH 28.2 pg (27.0-34.0) 07/17/24 05:05 MCHC 32.1 g/dL (33.0-35.0) L 07/17/24 05:05 RDW 17.9 % (11.6-16.5) H 07/17/24 05:05 Plt Count 267 X10^3/uL (150.0-450.0) 07/17/24 05:05 MPV 8.2 fL (7.4-11.0) 07/17/24 05:05 Neut % (Auto) 77.4 % (42.0-75.0) H 07/17/24 05:05 Lymph % (Auto) 14.8 % (21.0-51.0) L 07/17/24 05:05 [place] % (Auto) 5.8 % (0.0-13.0) 07/17/24 05:05 Eos % (Auto) 1.2 % (0.9-2.9) 07/17/24 05:05 Baso % (Auto) 0.8 % (0.2-1.0) 07/17/24 05:05 Neut # (Auto) 6.8 x10^3/uL (2.2-4.8) H 07/17/24 05:05 Lymph # (Auto) 1.3 X10^3/uL (1.3-2.9) 07/17/24 05:05 [place] # (Auto) 0.5 x10^3/uL (0.3-0.8) 07/17/24 05:05 Eos # (Auto) 0.1 x10^3/uL (0.0-0.2) 07/17/24 05:05 Baso # (Auto) 0.1 X10^3/uL (0.0-0.1) 07/17/24 05:05 Absolute Nucleated RBC 0.0 /100WBC 07/17/24 05:05 Sodium 134 mmol/L (136-145) L 07/17/24 05:05 Corrected Sodium 134 mmol/L (136-145) L 07/17/24 05:05 Potassium 3.9 mmol/L (3.5-5.1) 07/17/24 05:05 Chloride 99 mmol/L (98-107) 07/17/24 05:05 Carbon Dioxide 31.4 mmol/L (21-32) 07/17/24 05:05 BUN 24 mg/dL (7-18) H 07/17/24 05:05 Creatinine 1.26 mg/dL (0.55-1.02) H 07/17/24 05:05 Est GFR (MDRD) Af Amer 52 (>60) L 07/17/24 05:05 Est GFR (MDRD) Non-Af 43 (>60) L 07/17/24 05:05 Glucose 111 mg/dL (65-99) H 07/17/24 05:05 Lactic Acid 1.1 mmol/L (0.4-2.0) 07/17/24 05:05 Calcium 9.1 mg/dL (8.5-10.1) 07/17/24 05:05 Corrected Calcium TNP 07/17/24 05:05 Total Bilirubin 0.30 mg/dL (0.2-1.0) 07/17/24 05:05 AST 16 Units/L (15-37) 07/17/24 05:05 ALT 15 Units/L (12-78) 07/17/24 05:05 Alkaline Phosphatase 87 Units/L (46-116) 07/17/24 05:05 Creatine Kinase 80 Units/L (26-192) 07/17/24 05:05 Troponin I High Sens 7.1 ng/L (4.0-60.0) 07/17/24 05:05 Total Protein 7.2 g/dL (6.4-8.2) 07/17/24 05:05 Albumin 3.6 g/dL (3.4-5.0) 07/17/24 05:05 Globulin 3.6 g/dL (2.5-4.5) 07/17/24 05:05 Albumin/Globulin Ratio 1.0 Ratio (1.1-2.1) L 07/17/24 05:05 Amylase 85 Units/L (25-115) 07/17/24 05:05 Lipase 96 Units/L (16-77) H 07/17/24 05:05 Specimen Type Catherized urine 07/17/24 04:48 Urine Color Straw (YELLOW) 07/17/24 04:48 Urine Appearance Cloudy (CLEAR) 07/17/24 04:48 Urine pH 6.0 (5.0 - 8.0) 07/17/24 04:48 Ur Specific [place] 1.015 (1.000-1.030) 07/17/24 04:48 Urine Protein 1+ (NEGATIVE) 07/17/24 04:48 Urine Glucose (UA) Negative (NEGATIVE) 07/17/24 04:48 Urine Ketones Negative (NEGATIVE) 07/17/24 04:48 Urine Blood Negative (NEGATIVE) 07/17/24 04:48 Urine Nitrite Positive (NEGATIVE) 07/17/24 04:48 Urine Bilirubin Negative (NEGATIVE) 07/17/24 04:48 Urine Urobilinogen Normal (NORMAL) 07/17/24 04:48 Ur Leukocyte Esterase Negative (NEGATIVE) 07/17/24 04:48 Urine RBC 0-2 /HPF (0-3) 07/17/24 04:48 Urine WBC 0-2 /HPF (0-5) 07/17/24 04:48 Ur Squamous Epith Cells Rare /HPF (NEGATIVE) 07/17/24 04:48 Urine Bacteria 4+ /HPF (NEGATIVE) 07/17/24 04:48 Ur Culture Indicated? Yes/culture set up 07/17/24 04:48 Urine Opiates Screen Negative (NEG=<300) 07/17/24 04:48 Urine Methadone Screen Negative (NEG=<300) 07/17/24 04:48 Ur Barbiturates Screen Negative (NEG=<200) 07/17/24 04:48 Ur Phencyclidine Scrn Negative (NEG=<25) 07/17/24 04:48 Ur Amphetamines Screen Negative (NEG=<1000) 07/17/24 04:48 U Benzodiazepines Scrn Negative (NEG=<200) 07/17/24 04:48 Urine Cocaine Screen Negative (NEG=<300) 07/17/24 04:48 U Marijuana (THC) Screen Negative (NEG=<50) 07/17/24 04:48 SARS-CoV-2 (PCR) Negative (NEGATIVE) 07/17/24 04:32 Influenza Type A (PCR) Negative (NEGATIVE) 07/17/24 04:32 Influenza Type B (PCR) Negative (NEGATIVE) 07/17/24 04:32 RSV (PCR) Negative (NEGATIVE) 07/17/24 04:32 Review of Systems Constitutional: Weakness Eyes: No Symptoms Reported ENT: No Symptoms Reported Respiratory: No Symptoms Reported Cardiovascular: No Symptoms Reported Gastrointestinal: No Symptoms Reported Genitourinary: No Symptoms Reported Musculoskeletal: No Symptoms Reported Skin: No Symptoms Reported Neurological: Confusion Physical Exam Vital Signs: Vital Signs Temperature 97.5 F Temperature 97.5 F Temperature 98.0 F Pulse Rate [Left Radial] 77 Pulse Rate [Right Brachial] 77 Pulse Rate 66 Pulse Rate 68 Pulse Rate 72 Pulse Rate 65 Pulse Rate 66 Pulse Rate 64 Pulse Rate 65 Pulse Rate 66 Pulse Rate 72 Pulse Rate 71 Pulse Rate 72 Pulse Rate 78 Respiratory Rate 19 Respiratory Rate 19 Respiratory Rate 14 Respiratory Rate 19 Respiratory Rate 23 Respiratory Rate 15 Respiratory Rate 14 Respiratory Rate 10 Respiratory Rate 26 Blood Pressure [Left Arm] 166/73 Blood Pressure [Right Arm] 166/73 Blood Pressure 157/78 Blood Pressure 155/73 Blood Pressure 173/79 Blood Pressure 186/81 Blood Pressure 186/81 Blood Pressure 186/81 O2 Sat by Pulse Oximetry 98 O2 Sat by Pulse Oximetry 98 O2 Sat by Pulse Oximetry 100 O2 Sat by Pulse Oximetry 100 O2 Sat by Pulse Oximetry 99 O2 Sat by Pulse Oximetry 100 O2 Sat by Pulse Oximetry 98 O2 Sat by Pulse Oximetry 99 O2 Sat by Pulse Oximetry 97 O2 Sat by Pulse Oximetry 96 O2 Sat by Pulse Oximetry 74 O2 Sat by Pulse Oximetry 79 O2 Sat by Pulse Oximetry 82 O2 Sat by Pulse Oximetry 75 Oriented: Not Oriented Eyes: Normal Ear: Normal Nose: Normal Throat: Normal Respiratory: Clear Throughout Cardiovascular: Normal : Normal Auscultation: Bowel Sounds: Normal Palpation: Normal Tenderness: Normal Skin: Normal Musculoskeletal: Normal Mood Description: Calm Assessment/Plan (1) Acute cystitis: Status: Acute Plan: IV rocephin Urine culture pending (2) Altered mental status: Status: Acute (3) Hypertension: Qualifiers: Hypertension type: essential hypertension Qualified Code(s): I10 - Essential (primary) hypertension Status: Acute (4) Dementia: Status: Acute Review H&P Reviewed: Yes Patient was examined?: Yes
[2024-07-17] MEDS: MAALOX or MYLANTA PO PRN (20:26)
[2024-07-17] MEDS: NEURONTIN TAB 600 MG PO SCH (21:33)
[2024-07-17] MEDS: COREG TAB 6.25 MG PO SCH (21:33)
[2024-07-17] MEDS: LIPITOR TAB 40 MG PO SCH (21:34)
[2024-07-17] MEDS: PREVACID PO SCH (21:34)
[2024-07-17] MEDS: ATIVAN INJ 2 MG VIAL ONE (23:40)
[2024-07-18] MEDS ORDERED: NS IV SCH ×3 (05:00→09:00)
[2024-07-18] MEDS ORDERED: ROCEPHIN IV SCH ×3 (05:00→09:00)
[2024-07-18 06:24] LABS: BASOPHILS % (AUTO) 0.6 % (0.2-1.0); EOSINOPHILS # (AUTO) 0.2 x10^3/uL (0.0-0.2); EOSINOPHILS % (AUTO) 2.3 % (0.9-2.9); HEMATOCRIT 32.6 % (36.0-47.0); HEMOGLOBIN 10.5 g/dL (12.0-16.0); LYMPHOCYTES # (AUTO) 1.9 X10^3/uL (1.3-2.9); LYMPHOCYTES % (AUTO) 29.2 % (21.0-51.0); MEAN CORPUSCULAR HEMOGLOBIN 28.5 pg (27.0-34.0); MEAN CORPUSCULAR HGB CONC 32.4 g/dL (33.0-35.0); MEAN PLATELET VOLUME 8.4 fL (7.4-11.0); MONOCYTES # (AUTO) 0.6 x10^3/uL (0.3-0.8); MONOCYTES % (AUTO) 9.1 % (0.0-13.0); NEUTROPHILS # (AUTO) 3.8 x10^3/uL (2.2-4.8); NEUTROPHILS % (AUTO) 58.8 % (42.0-75.0); PLATELET COUNT 236 X10^3/uL (150.0-450.0); RED CELL DISTRIBUTION WIDTH 17.9 % (11.6-16.5); WHITE BLOOD COUNT 6.4 X10^3/uL (3.6-10.0)
[2024-07-18 06:32] LABS: ALANINE AMINOTRANSFERASE 12 Units/L (12-78); ALBUMIN 2.8 g/dL (3.4-5.0); ALKALINE PHOSPHATASE 71 Units/L (46-116); ASPARTATE AMINO TRANSFERASE 12 Units/L (15-37); BLOOD UREA NITROGEN 21 mg/dL (7-18); CALCIUM 8.3 mg/dL (8.5-10.1); CARBON DIOXIDE 29.3 mmol/L (21-32); CHLORIDE 103 mmol/L (98-107); COR CA(FOR HYPOALB) 9.3 mg/dL (8.5-10.1); CREATININE 0.97 mg/dL (0.55-1.02); GLUCOSE 95 mg/dL (65-99); SODIUM 136 mmol/L (136-145); eGFR NON BLACK RACES 58 (>60)
[2024-07-18] MEDS ORDERED: ZOLOFT ONE (08:04)
[2024-07-18] MEDS: ZOLOFT PO SCH (08:26)
[2024-07-18] MEDS: COZAAR PO SCH (08:26)
[2024-07-18] MEDS: ROCEPHIN VIAL 1 GRAM 1 G in NS 100 ML IV 100 ML IV SCH (08:27)
[2024-07-18] MEDS: NIZORAL CREAM TOP SCH (08:28)
[2024-07-18] MEDS: LOVENOX INJ 40 MG SYR SC SCH (09:45)
--- NOTE | 2024-07-18 12:51 | PCM.PROG ---
Progress Note Progress Note for Day of Date of Exam: 07/18/24 Subjective Subjective: Patient seen at bedside, no acute events overnight. She is currently admitted for altered mental status, weakness and UTI. She reports feeling better this morning. She is awake and alert. CT abdomen pelvis done in the ER did not show any acute changes. Urine culture is pending. She is currently on IV antibiotics and fluids. Labs/imaging reviewed: -WBC 6.4 hemoglobin 10.5 BUN/creatinine 21/0.97 -Chest x-ray reviewed -CTAP reviewed -Urine culture pending Plan: Continue hydration and IV antibiotics. Follow final cultures. Replace electrolytes as needed. Resume home medications. PT/OT as tolerated. Monitor a.m. labs and imaging. Past Medical Family Social History Allergies: Allergies codeine Allergy (Verified 03/21/22 14:08) Vital Signs and I&O's Vital Signs: Vital Signs Temperature 98.0 F Pulse Rate [Left Radial] 74 Respiratory Rate 17 Blood Pressure [Right Arm] 158/68 O2 Sat by Pulse Oximetry 93 Intake and Output: Intake & Output 07/15/24 07/16/24 07/17/24 07/18/24 23:59 23:59 23:59 23:59 Intake Total 1003 / 1003 480 / 480 Balance 1003 / 1003 480 / 480 Physical Exam Oriented: Not Oriented Eyes: Normal Ear: Normal Nose: Normal Throat: Normal Respiratory: Generalized and Diminished Cardiovascular: Normal Auscultation: Bowel Sounds: Normal Palpation: Normal Tenderness: Normal Skin: Normal Musculoskeletal: Normal Psychiatric: Normal Mood Description: Calm Affect: Normal Speech Pattern: Clear and Appropriate Laboratory and Diagnostics 07/18/24 05:32 07/18/24 05:32 Labs: 07/17/24 04:48 Urine,Catheterized Urine Culture - Preliminary Laboratory WBC 6.4 X10^3/uL (3.6-10.0) 07/18/24 05:32 RBC 3.70 X10^6/uL (3.5-5.4) 07/18/24 05:32 Hgb 10.5 g/dL (12.0-16.0) L 07/18/24 05:32 Hct 32.6 % (36.0-47.0) L 07/18/24 05:32 MCV 88.0 fL (80.0-100.0) 07/18/24 05:32 MCH 28.5 pg (27.0-34.0) 07/18/24 05:32 MCHC 32.4 g/dL (33.0-35.0) L 07/18/24 05:32 RDW 17.9 % (11.6-16.5) H 07/18/24 05:32 Plt Count 236 X10^3/uL (150.0-450.0) 07/18/24 05:32 MPV 8.4 fL (7.4-11.0) 07/18/24 05:32 Neut % (Auto) 58.8 % (42.0-75.0) 07/18/24 05:32 Lymph % (Auto) 29.2 % (21.0-51.0) 07/18/24 05:32 [place] % (Auto) 9.1 % (0.0-13.0) 07/18/24 05:32 Eos % (Auto) 2.3 % (0.9-2.9) 07/18/24 05:32 Baso % (Auto) 0.6 % (0.2-1.0) 07/18/24 05:32 Neut # (Auto) 3.8 x10^3/uL (2.2-4.8) 07/18/24 05:32 Lymph # (Auto) 1.9 X10^3/uL (1.3-2.9) 07/18/24 05:32 [place] # (Auto) 0.6 x10^3/uL (0.3-0.8) 07/18/24 05:32 Eos # (Auto) 0.2 x10^3/uL (0.0-0.2) 07/18/24 05:32 Baso # (Auto) 0.0 X10^3/uL (0.0-0.1) 07/18/24 05:32 Absolute Nucleated RBC 0.1 /100WBC 07/18/24 05:32 APTT 27.0 SECONDS (22.9-36.5) 07/18/24 05:32 PTT Comment - 07/18/24 05:32 Sodium 136 mmol/L (136-145) 07/18/24 05:32 Corrected Sodium TNP 07/18/24 05:32 Potassium 4.0 mmol/L (3.5-5.1) 07/18/24 05:32 Chloride 103 mmol/L (98-107) 07/18/24 05:32 Carbon Dioxide 29.3 mmol/L (21-32) 07/18/24 05:32 BUN 21 mg/dL (7-18) H 07/18/24 05:32 Creatinine 0.97 mg/dL (0.55-1.02) 07/18/24 05:32 Est GFR (MDRD) Af Amer > 60 (>60) 07/18/24 05:32 Est GFR (MDRD) Non-Af 58 (>60) L 07/18/24 05:32 Glucose 95 mg/dL (65-99) 07/18/24 05:32 Lactic Acid 1.1 mmol/L (0.4-2.0) 07/17/24 05:05 Calcium 8.3 mg/dL (8.5-10.1) L 07/18/24 05:32 Corrected Calcium 9.3 mg/dL (8.5-10.1) 07/18/24 05:32 Total Bilirubin 0.20 mg/dL (0.2-1.0) 07/18/24 05:32 AST 12 Units/L (15-37) L 07/18/24 05:32 ALT 12 Units/L (12-78) 07/18/24 05:32 Alkaline Phosphatase 71 Units/L (46-116) 07/18/24 05:32 Creatine Kinase 79 Units/L (26-192) 07/18/24 07:35 Troponin I High Sens 7.8 ng/L (4.0-60.0) 07/17/24 16:40 Total Protein 6.0 g/dL (6.4-8.2) L 07/18/24 05:32 Albumin 2.8 g/dL (3.4-5.0) L 07/18/24 05:32 Globulin 3.2 g/dL (2.5-4.5) 07/18/24 05:32 Albumin/Globulin Ratio 0.9 Ratio (1.1-2.1) L 07/18/24 05:32 Amylase 85 Units/L (25-115) 07/17/24 05:05 Lipase 96 Units/L (16-77) H 07/17/24 05:05 Specimen Type Catherized urine 07/17/24 04:48 Urine Color Straw (YELLOW) 07/17/24 04:48 Urine Appearance Cloudy (CLEAR) 07/17/24 04:48 Urine pH 6.0 (5.0 - 8.0) 07/17/24 04:48 Ur Specific [place] 1.015 (1.000-1.030) 07/17/24 04:48 Urine Protein 1+ (NEGATIVE) 07/17/24 04:48 Urine Glucose (UA) Negative (NEGATIVE) 07/17/24 04:48 Urine Ketones Negative (NEGATIVE) 07/17/24 04:48 Urine Blood Negative (NEGATIVE) 07/17/24 04:48 Urine Nitrite Positive (NEGATIVE) 07/17/24 04:48 Urine Bilirubin Negative (NEGATIVE) 07/17/24 04:48 Urine Urobilinogen Normal (NORMAL) 07/17/24 04:48 Ur Leukocyte Esterase Negative (NEGATIVE) 07/17/24 04:48 Urine RBC 0-2 /HPF (0-3) 07/17/24 04:48 Urine WBC 0-2 /HPF (0-5) 07/17/24 04:48 Ur Squamous Epith Cells Rare /HPF (NEGATIVE) 07/17/24 04:48 Urine Bacteria 4+ /HPF (NEGATIVE) 07/17/24 04:48 Ur Culture Indicated? Yes/culture set up 07/17/24 04:48 Urine Opiates Screen Negative (NEG=<300) 07/17/24 04:48 Urine Methadone Screen Negative (NEG=<300) 07/17/24 04:48 Ur Barbiturates Screen Negative (NEG=<200) 07/17/24 04:48 Ur Phencyclidine Scrn Negative (NEG=<25) 07/17/24 04:48 Ur Amphetamines Screen Negative (NEG=<1000) 07/17/24 04:48 U Benzodiazepines Scrn Negative (NEG=<200) 07/17/24 04:48 Urine Cocaine Screen Negative (NEG=<300) 07/17/24 04:48 U Marijuana (THC) Screen Negative (NEG=<50) 07/17/24 04:48 SARS-CoV-2 (PCR) Negative (NEGATIVE) 07/17/24 04:32 Influenza Type A (PCR) Negative (NEGATIVE) 07/17/24 04:32 Influenza Type B (PCR) Negative (NEGATIVE) 07/17/24 04:32 RSV (PCR) Negative (NEGATIVE) 07/17/24 04:32 Plan (1) Acute cystitis: Status: Acute Qualifiers: Hematuria presence: without hematuria Qualified Code(s): N30.00 - Acute cystitis without hematuria Plan: IV rocephin Urine culture pending (2) Altered mental status: Status: Acute Qualifiers: Altered mental status type: delirium Qualified Code(s): R41.0 - Disor ientation, unspecified (3) Hypertension: Status: Acute Qualifiers: Hypertension type: essential hypertension Qualified Code(s): I10 - Essential (primary) hypertension (4) Dementia: Status: Acute Qualifiers: Dementia type: unspecified type Dementia severity: unspecified severity Dementia behavioral or psychological symptom: unspecified whether behavioral, psychotic, or mood disturbance or anxiety Qualified Code(s): F03.90 - Unspecifi ed dementia, unspecified severity, without behavioral disturbance, psychotic disturbance, mood disturbance, and anxiety (5) Generalized weakness: Status: Acute
[2024-07-18] MEDS: NORCO 5/325 MG TAB PO PRN (16:24)
[2024-07-18] MEDS: ZANAFLEX PO PRN (17:56)
[2024-07-19 06:40] LABS: BASOPHILS % (AUTO) 0.6 % (0.2-1.0); EOSINOPHILS # (AUTO) 0.1 x10^3/uL (0.0-0.2); EOSINOPHILS % (AUTO) 1.4 % (0.9-2.9); HEMATOCRIT 35.2 % (36.0-47.0); HEMOGLOBIN 11.3 g/dL (12.0-16.0); LYMPHOCYTES # (AUTO) 1.5 X10^3/uL (1.3-2.9); LYMPHOCYTES % (AUTO) 20.9 % (21.0-51.0); MEAN CORPUSCULAR HEMOGLOBIN 28.4 pg (27.0-34.0); MEAN CORPUSCULAR HGB CONC 32.1 g/dL (33.0-35.0); MEAN CORPUSCULAR VOLUME 88.5 fL (80.0-100.0); MEAN PLATELET VOLUME 8.3 fL (7.4-11.0); MONOCYTES # (AUTO) 0.8 x10^3/uL (0.3-0.8); MONOCYTES % (AUTO) 11.3 % (0.0-13.0); NEUTROPHILS # (AUTO) 4.8 x10^3/uL (2.2-4.8); NEUTROPHILS % (AUTO) 65.8 % (42.0-75.0); PLATELET COUNT 241 X10^3/uL (150.0-450.0); RED BLOOD COUNT 3.97 X10^6/uL (3.5-5.4); RED CELL DISTRIBUTION WIDTH 17.8 % (11.6-16.5); WHITE BLOOD COUNT 7.2 X10^3/uL (3.6-10.0)
[2024-07-19 06:43] LABS: ALANINE AMINOTRANSFERASE 15 Units/L (12-78); ALBUMIN 2.8 g/dL (3.4-5.0); ALKALINE PHOSPHATASE 79 Units/L (46-116); ASPARTATE AMINO TRANSFERASE 13 Units/L (15-37); BLOOD UREA NITROGEN 15 mg/dL (7-18); CALCIUM 8.2 mg/dL (8.5-10.1); CARBON DIOXIDE 27.9 mmol/L (21-32); CHLORIDE 101 mmol/L (98-107); COR CA(FOR HYPOALB) 9.2 mg/dL (8.5-10.1); CREATININE 0.84 mg/dL (0.55-1.02); GLUCOSE 98 mg/dL (65-99); POTASSIUM 3.8 mmol/L (3.5-5.1); SODIUM 137 mmol/L (136-145); TOTAL PROTEIN 6.3 g/dL (6.4-8.2); eGFR NON BLACK RACES > 60 (>60)
[2024-07-19] MEDS ORDERED: ZOLOFT ONE (07:08)
--- NOTE | 2024-07-19 10:13 | PCM.PROG ---
Progress Note Progress Note for Day of Date of Exam: 07/19/24 Subjective Subjective: Patient seen at bedside, no acute events overnight. She continues to have right sided neck pain. She states it was present before she came to the hospital. She states it hurts when she looks to the right side. She is currently admitted for altered mental status, weakness and UTI. She is currently on IV fluids and antibiotics. Labs/imaging reviewed: -WBC 7.2 hemoglobin 11.3 BUN/creatinine 15/0.84 -Chest x-ray reviewed -CTAP reviewed -Urine culture pending Plan: Will order cervical XR. Add lidocaine patch, diclofenac gel. Continue tizanidine. Continue hydration and IV antibiotics. Follow final cultures. Replace electrolytes as needed. Continue home medications. PT/OT as tolerated. Monitor a.m. labs and imaging. Past Medical Family Social History Allergies: Allergies codeine Allergy (Verified 03/21/22 14:08) Vital Signs and I&O's Vital Signs: Vital Signs Temperature 98.2 F Pulse Rate [Left Radial] 74 Respiratory Rate 17 Respiratory Rate 20 Respiratory Rate 18 Blood Pressure [Right Arm] 162/86 O2 Sat by Pulse Oximetry 97 Intake and Output: Intake & Output 07/16/24 07/17/24 07/18/24 07/19/24 23:59 23:59 23:59 23:59 Intake Total 1003 / 1003 3059 / 3059 704 / 704 Output Total 1000 / 1000 1000 / 1000 Balance 1003 / 1003 2059 / 2059 -296 / -296 Physical Exam Oriented: Not Oriented Eyes: Normal Ear: Normal Nose: Normal Throat: Normal Respiratory: Generalized and Diminished Cardiovascular: Normal Auscultation: Bowel Sounds: Normal Tenderness: Normal Skin: Normal Musculoskeletal: Motor Deficit (cervical tenderness, limited ROM to the right side. No obvious trauma or injury noted. ) Psychiatric: Normal Mood Description: Calm Affect: Normal Speech Pattern: Clear and Appropriate Laboratory and Diagnostics 07/19/24 05:30 07/19/24 05:30 Labs: 07/17/24 04:48 Urine,Catheterized Urine Culture - Final Escherichia Coli Laboratory WBC 7.2 X10^3/uL (3.6-10.0) 07/19/24 05:30 RBC 3.97 X10^6/uL (3.5-5.4) 07/19/24 05:30 Hgb 11.3 g/dL (12.0-16.0) L 07/19/24 05:30 Hct 35.2 % (36.0-47.0) L 07/19/24 05:30 MCV 88.5 fL (80.0-100.0) 07/19/24 05:30 MCH 28.4 pg (27.0-34.0) 07/19/24 05:30 MCHC 32.1 g/dL (33.0-35.0) L 07/19/24 05:30 RDW 17.8 % (11.6-16.5) H 07/19/24 05:30 Plt Count 241 X10^3/uL (150.0-450.0) 07/19/24 05:30 MPV 8.3 fL (7.4-11.0) 07/19/24 05:30 Neut % (Auto) 65.8 % (42.0-75.0) 07/19/24 05:30 Lymph % (Auto) 20.9 % (21.0-51.0) L 07/19/24 05:30 [place] % (Auto) 11.3 % (0.0-13.0) 07/19/24 05:30 Eos % (Auto) 1.4 % (0.9-2.9) 07/19/24 05:30 Baso % (Auto) 0.6 % (0.2-1.0) 07/19/24 05:30 Neut # (Auto) 4.8 x10^3/uL (2.2-4.8) 07/19/24 05:30 Lymph # (Auto) 1.5 X10^3/uL (1.3-2.9) 07/19/24 05:30 [place] # (Auto) 0.8 x10^3/uL (0.3-0.8) 07/19/24 05:30 Eos # (Auto) 0.1 x10^3/uL (0.0-0.2) 07/19/24 05:30 Baso # (Auto) 0.0 X10^3/uL (0.0-0.1) 07/19/24 05:30 Absolute Nucleated RBC 0.0 /100WBC 07/19/24 05:30 APTT 27.0 SECONDS (22.9-36.5) 07/18/24 05:32 PTT Comment - 07/18/24 05:32 Sodium 137 mmol/L (136-145) 07/19/24 05:30 Corrected Sodium TNP 07/19/24 05:30 Potassium 3.8 mmol/L (3.5-5.1) 07/19/24 05:30 Chloride 101 mmol/L (98-107) 07/19/24 05:30 Carbon Dioxide 27.9 mmol/L (21-32) 07/19/24 05:30 BUN 15 mg/dL (7-18) 07/19/24 05:30 Creatinine 0.84 mg/dL (0.55-1.02) 07/19/24 05:30 Est GFR (MDRD) Af Amer > 60 (>60) 07/19/24 05:30 Est GFR (MDRD) Non-Af > 60 (>60) 07/19/24 05:30 Glucose 98 mg/dL (65-99) 07/19/24 05:30 Lactic Acid 1.1 mmol/L (0.4-2.0) 07/17/24 05:05 Calcium 8.2 mg/dL (8.5-10.1) L 07/19/24 05:30 Corrected Calcium 9.2 mg/dL (8.5-10.1) 07/19/24 05:30 Total Bilirubin 0.30 mg/dL (0.2-1.0) 07/19/24 05:30 AST 13 Units/L (15-37) L 07/19/24 05:30 ALT 15 Units/L (12-78) 07/19/24 05:30 Alkaline Phosphatase 79 Units/L (46-116) 07/19/24 05:30 Creatine Kinase 107 Units/L (26-192) 07/19/24 08:03 Troponin I High Sens 7.8 ng/L (4.0-60.0) 07/17/24 16:40 Total Protein 6.3 g/dL (6.4-8.2) L 07/19/24 05:30 Albumin 2.8 g/dL (3.4-5.0) L 07/19/24 05:30 Globulin 3.5 g/dL (2.5-4.5) 07/19/24 05:30 Albumin/Globulin Ratio 0.8 Ratio (1.1-2.1) L 07/19/24 05:30 Amylase 85 Units/L (25-115) 07/17/24 05:05 Lipase 96 Units/L (16-77) H 07/17/24 05:05 Specimen Type Catherized urine 07/17/24 04:48 Urine Color Straw (YELLOW) 07/17/24 04:48 Urine Appearance Cloudy (CLEAR) 07/17/24 04:48 Urine pH 6.0 (5.0 - 8.0) 07/17/24 04:48 Ur Specific [place] 1.015 (1.000-1.030) 07/17/24 04:48 Urine Protein 1+ (NEGATIVE) 07/17/24 04:48 Urine Glucose (UA) Negative (NEGATIVE) 07/17/24 04:48 Urine Ketones Negative (NEGATIVE) 07/17/24 04:48 Urine Blood Negative (NEGATIVE) 07/17/24 04:48 Urine Nitrite Positive (NEGATIVE) 07/17/24 04:48 Urine Bilirubin Negative (NEGATIVE) 07/17/24 04:48 Urine Urobilinogen Normal (NORMAL) 07/17/24 04:48 Ur Leukocyte Esterase Negative (NEGATIVE) 07/17/24 04:48 Urine RBC 0-2 /HPF (0-3) 07/17/24 04:48 Urine WBC 0-2 /HPF (0-5) 07/17/24 04:48 Ur Squamous Epith Cells Rare /HPF (NEGATIVE) 07/17/24 04:48 Urine Bacteria 4+ /HPF (NEGATIVE) 07/17/24 04:48 Ur Culture Indicated? Yes/culture set up 07/17/24 04:48 Urine Opiates Screen Negative (NEG=<300) 07/17/24 04:48 Urine Methadone Screen Negative (NEG=<300) 07/17/24 04:48 Ur Barbiturates Screen Negative (NEG=<200) 07/17/24 04:48 Ur Phencyclidine Scrn Negative (NEG=<25) 07/17/24 04:48 Ur Amphetamines Screen Negative (NEG=<1000) 07/17/24 04:48 U Benzodiazepines Scrn Negative (NEG=<200) 07/17/24 04:48 Urine Cocaine Screen Negative (NEG=<300) 07/17/24 04:48 U Marijuana (THC) Screen Negative (NEG=<50) 07/17/24 04:48 SARS-CoV-2 (PCR) Negative (NEGATIVE) 07/17/24 04:32 Influenza Type A (PCR) Negative (NEGATIVE) 07/17/24 04:32 Influenza Type B (PCR) Negative (NEGATIVE) 07/17/24 04:32 RSV (PCR) Negative (NEGATIVE) 07/17/24 04:32 Plan (1) Cervical sprain: Status: Acute Qualifiers: Encounter type: initial encounter Qualified Code(s): S13.9XXA - Sprain of joints and ligaments of unspecified parts of neck, initial encounter (2) Acute cystitis: Status: Acute Qualifiers: Hematuria presence: without hematuria Qualified Code(s): N30.00 - Acute cystitis without hematuria (3) Altered mental status: Status: Acute Qualifiers: Altered mental status type: delirium Qualified Code(s): R41.0 - Di sorientation, unspecified (4) Hypertension: Status: Acute Qualifiers: Hypertension type: essential hypertension Qualified Code(s): I10 - Essential (primary) hypertension (5) Dementia: Status: Acute Qualifiers: Dementia behavioral or psychological symptom: unspecified whether behavioral, psychotic, or mood disturbance or anxiety Dementia severity: unspecified severity Dementia type: unspecified type Qualified Code(s): F03.90 - Unspecified dementia, unspecified severity, without behavioral disturbance, psychotic disturbance, mood disturbance, and anxiety (6) Generalized weakness: Status: Acute
[2024-07-19] MEDS: VOLTAREN 1 % GEL MULTI DOSE TUBE TOP SCH (10:52)
[2024-07-19] MEDS: LIDODERM 5% PATCH TD SCH (10:52)
[2024-07-20 06:25] LABS: BASOPHILS # (AUTO) 0.1 X10^3/uL (0.0-0.1); BASOPHILS % (AUTO) 0.9 % (0.2-1.0); EOSINOPHILS # (AUTO) 0.1 x10^3/uL (0.0-0.2); HEMATOCRIT 30.7 % (36.0-47.0); LYMPHOCYTES # (AUTO) 1.5 X10^3/uL (1.3-2.9); LYMPHOCYTES % (AUTO) 21.1 % (21.0-51.0); MEAN CORPUSCULAR HEMOGLOBIN 28.6 pg (27.0-34.0); MEAN CORPUSCULAR HGB CONC 32.4 g/dL (33.0-35.0); MEAN CORPUSCULAR VOLUME 88.3 fL (80.0-100.0); MEAN PLATELET VOLUME 8.6 fL (7.4-11.0); MONOCYTES # (AUTO) 0.9 x10^3/uL (0.3-0.8); MONOCYTES % (AUTO) 12.2 % (0.0-13.0); NEUTROPHILS # (AUTO) 4.6 x10^3/uL (2.2-4.8); NEUTROPHILS % (AUTO) 63.8 % (42.0-75.0); PLATELET COUNT 218 X10^3/uL (150.0-450.0); RED BLOOD COUNT 3.48 X10^6/uL (3.5-5.4); RED CELL DISTRIBUTION WIDTH 17.5 % (11.6-16.5); WHITE BLOOD COUNT 7.3 X10^3/uL (3.6-10.0)
[2024-07-20 06:42] LABS: ALANINE AMINOTRANSFERASE 15 Units/L (12-78); ALBUMIN 2.5 g/dL (3.4-5.0); ALKALINE PHOSPHATASE 81 Units/L (46-116); ASPARTATE AMINO TRANSFERASE 21 Units/L (15-37); BLOOD UREA NITROGEN 17 mg/dL (7-18); CALCIUM 8.3 mg/dL (8.5-10.1); CARBON DIOXIDE 25.9 mmol/L (21-32); CHLORIDE 102 mmol/L (98-107); COR CA(FOR HYPOALB) 9.5 mg/dL (8.5-10.1); CREATININE 0.88 mg/dL (0.55-1.02); GLUCOSE 97 mg/dL (65-99); MAGNESIUM 1.8 mg/dL (2.0-2.9); POTASSIUM 4.1 mmol/L (3.5-5.1); SODIUM 134 mmol/L (136-145); TOTAL PROTEIN 5.9 g/dL (6.4-8.2); eGFR NON BLACK RACES > 60 (>60)
--- NOTE | 2024-07-20 08:13 | RAD ---
EXAM:CERVICAL SPINE x-ray three viewsHISTORY:NECK PAIN -COMPARISON:None.FINDINGS:Study is limited due to difficulty positioning the patient. There is reversed lordosis in the mid cervical spine. There is osseous fusion of the C4-6 vertebral bodies. C7 is only partially seen.Prominent arthritic facet changes are seen in the upper cervical spine with less prominent arthritic facet changes in the lower cervical spine.Large anterior osteophytes are seen from C3-C6 and could be a source of dysphagia. No prevertebral soft tissue swelling is seen. No C-spine fracture is seen.IMPRESSION:Bony fusion of C5-6. Diffuse arthritic changes.THIS IS AN ELECTRONICALLY VERIFIED FINAL REPORT07/20/2024 8:10 AM - Electronically signed by Morro Steele MD
[2024-07-20 09:06] VITALS: RESP 18
[2024-07-20] MEDS: ZOLOFT ONE (09:09)
[2024-07-20 11:41] VITALS: BP 169/72; PULSE 71; TEMP 97.6; O2SAT 93
== END 2024-07-20 15:00 | disposition home health service (06) | DRG 690 ==
LOC: MED/SURG 03:57 → ER 03:57 → MED/SURG 06:47
PROVIDERS: ADMIT Family Medicine; ATTEND Family Medicine
DX: M54.2 Cervicalgia; Z16.19 Resistance to other specified beta lactam antibiotics; R29.6 Repeated falls; R26.89 Other abnormalities of gait and mobility; R53.1 Weakness; E83.42 Hypomagnesemia; Z20.822 Contact with and (suspected) exposure to COVID-19; E87.1 Hypo-osmolality and hyponatremia; B96.29 Other Escherichia coli [E. coli] as the cause of diseases classified elsewhere; Z16.11 Resistance to penicillins; Z60.8 Other problems related to social environment; R25.8 Other abnormal involuntary movements; I25.10 Atherosclerotic heart disease of native coronary artery without angina pectoris; F03.90 Unspecified dementia, unspecified severity, without behavioral disturbance, psychotic disturbance, mood disturbance, and anxiety; Z16.23 Resistance to quinolones and fluoroquinolones; R10.84 Generalized abdominal pain; Z65.8 Other specified problems related to psychosocial circumstances; R41.0 Disorientation, unspecified; N30.00 Acute cystitis without hematuria; Z16.29 Resistance to other single specified antibiotic; R11.2 Nausea with vomiting, unspecified

== ENCOUNTER 2024-12-23 22:21 | Inpatient (IN) ==
--- NOTE | 2024-12-23 22:43 | CT ---
EXAM: BRAIN W/O CON HISTORY: UBRESPONSIVE; COMPARISON: 09/21/2024 TECHNIQUE: Nonenhanced spiral CT imaging was performed through the head and axial, coronal, and sagittal CT imag es were generated. FINDINGS: The ventricles and sulci are prominent. There is hypodensity in the periventricular and subcortical white matter compatible with small-vessel ischemic disease. The brain parenchyma otherwise has hayden l density. There is no sulcal effacement or focal loss of the felix-white junction to suggest acute i nfarct. There is no intracranial hemorrhage. There is no mass effect or midline shift. The calvari um is intact. Mastoid air cells and middle ear cavities are clear. The paranasal sinuses are clear. IMPRESSION: No acute abnormality. THIS IS AN ELECTRONICALLY VERIFIED FINAL REPORT 12/23/2024 10:39 PM - Electronically signed by Jorge A Salas MD
[2024-12-23] MEDS ORDERED: ATIVAN INJ 2 MG VIAL ONE (22:48)
[2024-12-23] MEDS: NS 1,000 ML IV 1,000 ML IV ONE (22:55)
[2024-12-23] MEDS: ATIVAN INJ 2 MG VIAL IVP ONE (22:55)
[2024-12-23 23:01] LABS: BILIRUBIN,URINE NEGATIVE (NEGATIVE); BLOOD/HEMOGLOBIN,URINE NEGATIVE (NEGATIVE); GLUCOSE, URINE NEGATIVE (NEGATIVE); KETONES,URINE NEGATIVE (NEGATIVE); LEUKOCYTE ESTERASE ,URINE NEGATIVE (NEGATIVE); NITRITES,URINE NEGATIVE (NEGATIVE); PROTEIN,URINE 1+ (NEGATIVE); UROBILINOGEN,URINE NORMAL (NORMAL)
[2024-12-23 23:02] LABS: BASOPHILS # (AUTO) 0.1 X10^3/uL (0.0-0.1); BASOPHILS % (AUTO) 0.8 % (0.2-1.0); EOSINOPHILS # (AUTO) 0.1 x10^3/uL (0.0-0.2); EOSINOPHILS % (AUTO) 0.7 % (0.9-2.9); HEMATOCRIT 38.6 % (36.0-47.0); HEMOGLOBIN 12.7 g/dL (12.0-16.0); LYMPHOCYTES # (AUTO) 2.1 X10^3/uL (1.3-2.9); LYMPHOCYTES % (AUTO) 25.4 % (21.0-51.0); MEAN CORPUSCULAR HEMOGLOBIN 29.9 pg (27.0-34.0); MEAN CORPUSCULAR VOLUME 90.5 fL (80.0-100.0); MEAN PLATELET VOLUME 8.7 fL (7.4-11.0); MONOCYTES # (AUTO) 0.4 x10^3/uL (0.3-0.8); MONOCYTES % (AUTO) 4.8 % (0.0-13.0); NEUTROPHILS # (AUTO) 5.5 x10^3/uL (2.2-4.8); NEUTROPHILS % (AUTO) 68.3 % (42.0-75.0); PLATELET COUNT 241 X10^3/uL (150.0-450.0); RED BLOOD COUNT 4.26 X10^6/uL (3.5-5.4); RED CELL DISTRIBUTION WIDTH 15.7 % (11.6-16.5); WHITE BLOOD COUNT 8.1 X10^3/uL (3.6-10.0)
[2024-12-23 23:03] LABS: INR 1.12 (0.8-1.3)
[2024-12-23 23:07] LABS: APPEARANCE,URINE CLEAR (CLEAR); BACTERIA,URINE TRACE /HPF (NEGATIVE); COLOR,URINE PALE YELLOW (YELLOW); RBC,URINE NONE SEEN /HPF (0-3); SQUAMOUS EPITHELIAL CELL,UR RARE /HPF (NEGATIVE)
[2024-12-23 23:15] LABS: ALANINE AMINOTRANSFERASE 13 Units/L (12-78); ALBUMIN 3.6 g/dL (3.4-5.0); ALKALINE PHOSPHATASE 110 Units/L (46-116); ASPARTATE AMINO TRANSFERASE 13 Units/L (15-37); BLOOD UREA NITROGEN 25 mg/dL (7-18); CALCIUM 9.3 mg/dL (8.5-10.1); CHLORIDE 103 mmol/L (98-107); COR NA(FOR HYPERGLY) 141 mmol/L (136-145); CREATINE KINASE 70 Units/L (26-192); CREATININE 1.48 mg/dL (0.55-1.02); GLUCOSE 145 mg/dL (65-99); POTASSIUM 4.5 mmol/L (3.5-5.1); SODIUM 140 mmol/L (136-145); TOTAL PROTEIN 7.1 g/dL (6.4-8.2); eGFR NON BLACK RACES 36 (>60)
--- NOTE | 2024-12-24 02:16 | DR.AMS ---
HPI Time Seen Time Seen by Provider: 12/23/24 22:43 PCP Primary Care Physician: GILLIAN HPI Comment HPI Comment: According to son ,patient has hx of hiccups intermittently .Has noticed that when her hiccups gets worse she experiences involuntary shaking of the body that gradually worsened .Pt did not improve with her shaking of her body .She was noticed afterwards to be more sleepy and drowsier .Ambulance was called .Pt was brought to ER .In the ER she was noted to GCS of 10 Complaint Cheif Complaint Doctors Comments: acute mental status change Chief Complaint:: PT IN ED VIA STRETCHER PER [facility] WITH C/O UNRESPONSIVE POSSIBLE SEIZURE VS STROKE. COVID-19 Coronavirus risk:travel/contact w/high risk person: No Has patient experienced Coronavirus symptoms: No Reviewed Nurses Notes Reviewed: Yes Source History Provided: EMS Mode of Arrival Mode of Arrival: Stretcher Timing Onset of Chief Complaint: 12/23/24 PMH PMH Past Medical History: Yes Past Medical History: Arthritis, Coronary Artery Disease, Dementia and Hypertension Past Medical History Comment: PULMONARY EDEMA Past Surgical History: Yes Surgical History: Angioplasty/Stents, Hysterectomy and Tonsillectomy Family History History of Family Medical Conditions: Yes Family Medical History: Cancer, Sudden Cardiac and Hypertension Social History Does patient currently use any type of tobacco product: No Have you used tobacco products in the last 12 months: No Type of Tobacco Use: None Does any household member use tobacco: No Alcohol Use: None Do you use any recreational Drugs:: No Lives With: Family Lives Where: Home Travel Risk Coronavirus risk:travel/contact w/high risk person: No Has patient experienced Coronavirus symptoms: No Infectious screening In the last 2 months have you had wt loss of >10#?: NO Have you had fever, night sweats or hemotysis?: No Have you traveled outside the country in the last 6 months?: No Isolation: Standard ROS Review of Systems Constitutional: No Symptoms Reported Eyes: No Symptoms Reported ENTM: No Symptoms Reported Respiratoy: No Symptoms Reported Cardiovascular: No Symptoms Reported Gastrointestinal/Abdominal: No Symptoms Reported Genitourinary: No Symptoms Reported Musculoskeletal: No Symptoms Reported Integumentary: No Symptoms Reported PE Vitals Vital Signs: Temp Pulse Resp BP Pulse Ox O2 Del Method 12/24/24 02:45 121/66 12/24/24 02:45 70 20 100 12/24/24 02:30 68 14 100 12/24/24 02:30 112/60 12/24/24 02:30 112/60 12/24/24 02:15 111/71 12/24/24 02:15 69 15 100 12/24/24 02:15 111/71 12/24/24 02:00 69 17 100 12/24/24 02:00 119/62 12/24/24 01:47 67 13 100 12/24/24 01:31 66 11 L 100 12/24/24 01:30 129/56 12/24/24 01:28 68 23 100 12/24/24 01:16 125/60 12/24/24 01:16 125/60 12/24/24 01:16 67 12 100 12/24/24 01:15 70 14 99 12/24/24 01:00 104/58 12/24/24 01:00 69 12 99 12/24/24 00:45 99/55 12/24/24 00:45 68 11 L 99 12/24/24 00:31 69 12 95 12/24/24 00:30 82/43 12/24/24 00:28 69 12 95 12/24/24 00:15 70 12 97 12/24/24 00:15 104/51 12/24/24 00:15 104/51 12/24/24 00:15 104/51 12/24/24 00:00 76 25 H 92 L 12/24/24 00:00 141/67 12/24/24 00:00 141/67 12/23/24 23:45 79 13 92 L 12/23/24 23:45 132/58 12/23/24 23:32 80 18 95 12/23/24 23:15 145/65 12/23/24 23:15 145/65 12/23/24 23:15 145/65 12/23/24 23:15 80 17 94 L 12/23/24 23:00 116/57 12/23/24 23:00 75 13 92 L 12/23/24 22:46 161/76 12/23/24 22:46 88 46 H 93 L 12/23/24 22:45 84 40 H 93 L 12/23/24 22:38 85 17 12/23/24 22:38 204/81 12/23/24 22:31 92 H 10 L 96 02/14/25 22:22 98.0 F 90 14 187/85 98 Room Air General Limitations: Altered Mental Status Head Head Exam: Normal Inspection, Atraumatic and Normocephalic Eyes Eye exam: PERRL ENT ENT Exam: Mucous Membranes Dry Neck Neck Exam: Normal Inspection Chest Chest Inspection: Normal Inspection and Symmetric Chest Wall Rise Respiratory Respiratory Exam: Normal Lung Sounds Bilat Respiratory Exam: Bilateral: Clear to Auscultation Cardiovascular Cardiovascular Exam: +S1 and +S2 Abdominal Exam Abdominal Exam: Normal Bowel Sounds and Soft Extremities Extremities Exam: Normal Inspection and Full ROM Skin Skin Exam: Normal Color MDM Additional Information Obtained Findings: myoclonus ,seizure dsiorder ,altered mental status Differential Diagnosis Metabolic: Dehydration, Hyponatremia and Post-ictal COURSE Treatment Treatment: labs ,head CT ,.during the course in the er she experienced involuntary jerks of her body .Was given IV ativan 1 mg and they resolved ROR Labs Reviewed Laboratory Results Reviewed?: Yes 12/23/24 22:43 12/23/24 22:43 Laboratory: WBC 8.1 X10^3/uL (3.6-10.0) 12/23/24 22:43 RBC 4.26 X10^6/uL (3.5-5.4) 12/23/24 22:43 Hgb 12.7 g/dL (12.0-16.0) 12/23/24 22:43 Hct 38.6 % (36.0-47.0) 12/23/24 22:43 MCV 90.5 fL (80.0-100.0) 12/23/24 22:43 MCH 29.9 pg (27.0-34.0) 12/23/24 22:43 MCHC 33.0 g/dL (33.0-35.0) 12/23/24 22:43 RDW 15.7 % (11.6-16.5) 12/23/24 22:43 Plt Count 241 X10^3/uL (150.0-450.0) 12/23/24 22:43 MPV 8.7 fL (7.4-11.0) 12/23/24 22:43 Neut % (Auto) 68.3 % (42.0-75.0) 12/23/24 22:43 Lymph % (Auto) 25.4 % (21.0-51.0) 12/23/24 22:43 [place] % (Auto) 4.8 % (0.0-13.0) 12/23/24 22:43 Eos % (Auto) 0.7 % (0.9-2.9) L 12/23/24 22:43 Baso % (Auto) 0.8 % (0.2-1.0) 12/23/24 22:43 Neut # (Auto) 5.5 x10^3/uL (2.2-4.8) H 12/23/24 22:43 Lymph # (Auto) 2.1 X10^3/uL (1.3-2.9) 12/23/24 22:43 [place] # (Auto) 0.4 x10^3/uL (0.3-0.8) 12/23/24 22:43 Eos # (Auto) 0.1 x10^3/uL (0.0-0.2) 12/23/24 22:43 Baso # (Auto) 0.1 X10^3/uL (0.0-0.1) 12/23/24 22:43 Absolute Nucleated RBC 0.1 /100WBC 12/23/24 22:43 PT 14.2 SECONDS (11.8-14.3) 12/23/24 22:43 INR Target Range - 12/23/24 22:43 INR 1.12 (0.8-1.3) 12/23/24 22:43 D-Dimer 1.01 ug/ml (0.0-0.57) H 12/23/24 22:43 Sodium 140 mmol/L (136-145) 12/23/24 22:43 Corrected Sodium 141 mmol/L (136-145) 12/23/24 22:43 Potassium 4.5 mmol/L (3.5-5.1) 12/23/24 22:43 Chloride 103 mmol/L (98-107) 12/23/24 22:43 Carbon Dioxide 23.0 mmol/L (21-32) 12/23/24 22:43 BUN 25 mg/dL (7-18) H 12/23/24 22:43 Creatinine 1.48 mg/dL (0.55-1.02) H 12/23/24 22:43 Est GFR (MDRD) Af Amer 43 (>60) L 12/23/24 22:43 Est GFR (MDRD) Non-Af 36 (>60) L 12/23/24 22:43 Glucose 145 mg/dL (65-99) H 12/23/24 22:43 Calcium 9.3 mg/dL (8.5-10.1) 12/23/24 22:43 Corrected Calcium TNP 12/23/24 22:43 Total Bilirubin 0.30 mg/dL (0.2-1.0) 12/23/24 22:43 AST 13 Units/L (15-37) L 12/23/24 22:43 ALT 13 Units/L (12-78) 12/23/24 22:43 Alkaline Phosphatase 110 Units/L (46-116) 12/23/24 22:43 Creatine Kinase 70 Units/L (26-192) 12/23/24 22:43 Troponin I High Sens 5.5 ng/L (4.0-60.0) 12/23/24 22:43 Total Protein 7.1 g/dL (6.4-8.2) 12/23/24 22:43 Albumin 3.6 g/dL (3.4-5.0) 12/23/24 22:43 Globulin 3.5 g/dL (2.5-4.5) 12/23/24 22:43 Albumin/Globulin Ratio 1.0 Ratio (1.1-2.1) L 12/23/24 22:43 Specimen Type Clean catch urine 12/23/24 22:37 Urine Color Pale yellow (YELLOW) 12/23/24 22:37 Urine Appearance Clear (CLEAR) 12/23/24 22:37 Urine pH 6.0 (5.0 - 8.0) 12/23/24 22:37 Ur Specific [place] 1.010 (1.000-1.030) 12/23/24 22: Urine Protein 1+ (NEGATIVE) 12/23/24 22: Urine Glucose (UA) Negative (NEGATIVE) 12/23/24 22: Urine Ketones Negative (NEGATIVE) 12/23/24 22: Urine Blood Negative (NEGATIVE) 12/23/24: Urine Nitrite Negative (NEGATIVE) 12/23/24 22: Urine Bilirubin Negative (NEGATIVE) 12/23/24 22:37 Urine Urobilinogen Normal (NORMAL) 12/23/24 22:37 Ur Leukocyte Esterase Negative (NEGATIVE) 12/23/24 22:37 Urine RBC None seen /HPF (0-3) 12/23/24 22:37 Urine WBC None seen /HPF (0-5) 12/23/24 22:37 Ur Squamous Epith Cells Rare /HPF (NEGATIVE) 12/23/24 22:37 Amorphous Sediment Trace /HPF (NEGATIVE) 12/23/24 22:37 Urine Bacteria Trace /HPF (NEGATIVE) 12/23/24 22:37 Ur Culture Indicated? No/not indicated 12/23/24 22:37 Opioid Opioid Risk Tool Age (Karthik box if 16-45): No History of Preadolescent Sexual Abuse: No Total: 0 Total Score Risk Category: Low Risk Copyright: Ousmane PORTILLO predicting aberrant behaviors Discharge Plan Diagnosis Discharge Problem: Myoclonic seizure, Acute renal failure, Acute dehydration Discharge Plan Patient Disposition: ADMITTED INPATIENT Condition: Stable Prescriptions: Continued carvedilol 6.25 mg tablet 6.25 mg PO BID Discontinued atorvastatin 40 mg tablet 40 mg PO QDAY gabapentin 600 mg tablet 600 mg PO QID sertraline 100 mg tablet 100 mg PO QDAY lansoprazole 30 mg capsule,delayed release(DR/EC) 30 mg PO BID losartan 100 mg tablet 100 mg PO QDAY Health Concerns: Post Hospitalization: new medications and changes needed to prevent readmission or further decline. Pt educated and given instructions on all concerns. Plan of Treatment: Continue with present treatment and follow up plan. Pt is to keep follow up appointment as instructed and take medications as ordered. Orders to Discharge Patient Discharge Orders: Transfer (Routine); Ordered 12/24/24 Ordered By: Clint Woodson Follow ups/Referrals Follow ups/Referrals: [facility],None [STAFF PHYSICIAN] - 3 days Instructions Stand Alone Forms: Find Help Web Site, Post Hospital Follow Up Care ADDITIONAL NOTES Additional Notes Additional Notes: acute renal failure ,dehydration , myoclonic seizure spoke with Dr Yanez .Agreed to have patient admitted
--- NOTE | 2024-12-24 02:58 | DR.AMS ---
HPI Time Seen Time Seen by Provider: 12/23/24 22:43 PCP Primary Care Physician: GILLIAN Complaint Chief Complaint:: PT IN ED VIA STRETCHER PER [facility] WITH C/O UNRESPONSIVE POSSIBLE SEIZURE VS STROKE. COVID-19 Coronavirus risk:travel/contact w/high risk person: No Has patient experienced Coronavirus symptoms: No Source History Provided: EMS Mode of Arrival Mode of Arrival: Stretcher Timing Onset of Chief Complaint: 12/23/24 PMH PMH Past Medical History: Yes Past Medical History: Arthritis, Coronary Artery Disease, Dementia and Hypertension Past Medical History Comment: PULMONARY EDEMA Past Surgical History: Yes Surgical History: Angioplasty/Stents, Hysterectomy and Tonsillectomy Family History History of Family Medical Conditions: Yes Family Medical History: Cancer, Sudden Cardiac and Hypertension Social History Does patient currently use any type of tobacco product: No Have you used tobacco products in the last 12 months: No Type of Tobacco Use: None Does any household member use tobacco: No Alcohol Use: None Do you use any recreational Drugs:: No Lives With: Family Lives Where: Home Travel Risk Coronavirus risk:travel/contact w/high risk person: No Has patient experienced Coronavirus symptoms: No Infectious screening In the last 2 months have you had wt loss of >10#?: NO Have you had fever, night sweats or hemotysis?: No Have you traveled outside the country in the last 6 months?: No Isolation: Standard PE Vitals Vital Signs: Temp Pulse Resp BP Pulse Ox O2 Del Method 12/24/24 02:45 121/66 12/24/24 02:45 70 20 100 12/24/24 02:30 68 14 100 12/24/24 02:30 112/60 12/24/24 02:30 112/60 12/24/24 02:15 111/71 12/24/24 02:15 69 15 100 12/24/24 02:15 111/71 12/24/24 02:00 69 17 100 12/24/24 02:00 119/62 12/24/24 01:47 67 13 100 12/24/24 01:31 66 11 L 100 12/24/24 01:30 129/56 12/24/24 01:28 68 23 100 12/24/24 01:16 125/60 12/24/24 01:16 125/60 12/24/24 01:16 67 12 100 12/24/24 01:15 70 14 99 12/24/24 01:00 104/58 12/24/24 01:00 69 12 99 12/24/24 00:45 99/55 12/24/24 00:45 68 11 L 99 12/24/24 00:31 69 12 95 12/24/24 00:30 82/43 12/24/24 00:28 69 12 95 12/24/24 00:15 70 12 97 12/24/24 00:15 104/51 12/24/24 00:15 104/51 12/24/24 00:15 104/51 12/24/24 00:00 76 25 H 92 L 12/24/24 00:00 141/67 12/24/24 00:00 141/67 12/23/24 23:45 79 13 92 L 12/23/24 23:45 132/58 12/23/24 23:32 80 18 95 12/23/24 23:15 145/65 12/23/24 23:15 145/65 12/23/24 23:15 145/65 12/23/24 23:15 80 17 94 L 12/23/24 23:00 116/57 12/23/24 23:00 75 13 92 L 12/23/24 22:46 161/76 12/23/24 22:46 88 46 H 93 L 12/23/24 22:45 84 40 H 93 L 12/23/24 22:38 85 17 12/23/24 22:38 204/81 12/23/24 22:31 92 H 10 L 96 12/23/24 22:22 98.0 F 90 14 187/85 98 Room Air ROR Labs Reviewed 12/23/24 22:43 12/23/24 22:43 Laboratory: WBC 8.1 X10^3/uL (3.6-10.0) 12/23/24 22:43 RBC 4.26 X10^6/uL (3.5-5.4) 12/23/24 22:43 Hgb 12.7 g/dL (12.0-16.0) 12/23/24 22:43 Hct 38.6 % (36.0-47.0) 12/23/24 22:43 MCV 90.5 fL (80.0-100.0) 12/23/24 22:43 MCH 29.9 pg (27.0-34.0) 12/23/24 22:43 MCHC 33.0 g/dL (33.0-35.0) 12/23/24 22:43 RDW 15.7 % (11.6-16.5) 12/23/24 22:43 Plt Count 241 X10^3/uL (150.0-450.0) 12/23/24 22:43 MPV 8.7 fL (7.4-11.0) 12/23/24 22:43 Neut % (Auto) 68.3 % (42.0-75.0) 12/23/24 22:43 Lymph % (Auto) 25.4 % (21.0-51.0) 12/23/24 22: [place] % (Auto) 4.8 % (0.0-13.0) 12/23/24 22:43 Eos % (Auto) 0.7 % (0.9-2.9) L 12/23/24: Baso % (Auto) 0.8 % (0.2-1.0) 12/23/24 22:43 Neut # (Auto) 5.5 x10^3/uL (2.2-4.8) H 12/23/24:43 Lymph # (Auto) 2.1 X10^3/uL (1.3-2.9) 12/23/24 22:43 [place] # (Auto) 0.4 x10^3/uL (0.3-0.8) 12/23/24 22: Eos # (Auto) 0.1 x10^3/uL (0.0-0.2) 12/23/24:43 Baso # (Auto) 0.1 X10^3/uL (0.0-0.1) 12/23/24: Absolute Nucleated RBC 0.1 /100WBC 12/23/24: PT 14.2 SECONDS (11.8-14.3) 12/23/24 22: INR Target Range - 12/23/24: INR 1.12 (0.8-1.3) 12/23/24 22: D-Dimer 1.01 ug/ml (0.0-0.57) H 12/23/24 22:43 Sodium 140 mmol/L (136-145) 12/23/24 22:43 Corrected Sodium 141 mmol/L (136-145) 12/23/24 22:43 Potassium 4.5 mmol/L (3.5-5.1) 12/23/24 22:43 Chloride 103 mmol/L (98-107) 12/23/24 22:43 Carbon Dioxide 23.0 mmol/L (21-32) 12/23/24 22:43 BUN 25 mg/dL (7-18) H 12/23/24 22:43 Creatinine 1.48 mg/dL (0.55-1.02) H 12/23/24 22:43 Est GFR (MDRD) Af Amer 43 (>60) L 12/23/24 22:43 Est GFR (MDRD) Non-Af 36 (>60) L 12/23/24 22:43 Glucose 145 mg/dL (65-99) H 12/23/24 22:43 Calcium 9.3 mg/dL (8.5-10.1) 12/23/24 22:43 Corrected Calcium TNP 12/23/24 22:43 Total Bilirubin 0.30 mg/dL (0.2-1.0) 12/23/24 22:43 AST 13 Units/L (15-37) L 12/23/24 22:43 ALT 13 Units/L (12-78) 12/23/24 22:43 Alkaline Phosphatase 110 Units/L (46-116) 12/23/24 22:43 Creatine Kinase 70 Units/L (26-192) 12/23/24 22:43 Troponin I High Sens 5.5 ng/L (4.0-60.0) 12/23/24 22:43 Total Protein 7.1 g/dL (6.4-8.2) 12/23/24 22:43 Albumin 3.6 g/dL (3.4-5.0) 12/23/24 22:43 Globulin 3.5 g/dL (2.5-4.5) 12/23/24 22:43 Albumin/Globulin Ratio 1.0 Ratio (1.1-2.1) L 12/23/24 22:43 Specimen Type Clean catch urine 12/23/24 22:37 Urine Color Pale yellow (YELLOW) 12/23/24 22:37 Urine Appearance Clear (CLEAR) 12/23/24 22:37 Urine pH 6.0 (5.0 - 8.0) 12/23/24 22:37 Ur Specific [place] 1.010 (1.000-1.030) 12/23/24 22:37 Urine Protein 1+ (NEGATIVE) 12/23/24 22:37 Urine Glucose (UA) Negative (NEGATIVE) 12/23/24 22:37 Urine Ketones Negative (NEGATIVE) 12/23/24 22:37 Urine Blood Negative (NEGATIVE) 12/23/24 22:37 Urine Nitrite Negative (NEGATIVE) 12/23/24 22: Urine Bilirubin Negative (NEGATIVE) 12/23/24 22:37 Urine Urobilinogen Normal (NORMAL) 12/23/24 22:37 Ur Leukocyte Esterase Negative (NEGATIVE) 12/23/24 22:37 Urine RBC None seen /HPF (0-3) 12/23/24 22:37 Urine WBC None seen /HPF (0-5) 12/23/24 22:37 Ur Squamous Epith Cells Rare /HPF (NEGATIVE) 12/23/24 22:37 Amorphous Sediment Trace /HPF (NEGATIVE) 12/23/24 22:37 Urine Bacteria Trace /HPF (NEGATIVE) 12/23/24 22:37 Ur Culture Indicated? No/not indicated 12/23/24 22:37 Opioid Opioid Risk Tool Age (Karthik box if 16-45): No History of Preadolescent Sexual Abuse: No Total: 0 Total Score Risk Category: Low Risk Copyright: Romeo predicting aberrant behaviors Discharge Plan Diagnosis Discharge Problem: Myoclonic seizure, Acute renal failure, Acute dehydration Discharge Plan Patient Disposition: 09 ADMITTED INPATIENT Condition: Stable Prescriptions: Continued carvedilol 6.25 mg tablet 6.25 mg PO BID Discontinued atorvastatin 40 mg tablet 40 mg PO QDAY gabapentin 600 mg tablet 600 mg PO QID sertraline 100 mg tablet 100 mg PO QDAY lansoprazole 30 mg capsule,delayed release(DR/EC) 30 mg PO BID losartan 100 mg tablet 100 mg PO QDAY Health Concerns: Post Hospitalization: new medications and changes needed to prevent readmission or further decline. Pt educated and given instructions on all concerns. Plan of Treatment: Continue with present treatment and follow up plan. Pt is to keep follow up appointment as instructed and take medications as ordered. Orders to Discharge Patient Discharge Orders: Transfer (Routine); Ordered 12/24/24 Ordered By: Clint Woodson Follow ups/Referrals Follow ups/Referrals: NFD,None [STAFF PHYSICIAN] - 3 days Instructions Stand Alone Forms: Find Help Web Site, Post Hospital Follow Up Care
[2024-12-24] MEDS: NS 1,000 ML IV 1,000 ML IV ONE (03:00)
[2024-12-24 04:02] VITALS: BMI 24.8
[2024-12-24 05:21] LABS: BASOPHILS % (AUTO) 0.5 % (0.2-1.0); EOSINOPHILS % (AUTO) 0.1 % (0.9-2.9); HEMATOCRIT 34.7 % (36.0-47.0); HEMOGLOBIN 11.5 g/dL (12.0-16.0); LYMPHOCYTES # (AUTO) 1.3 X10^3/uL (1.3-2.9); LYMPHOCYTES % (AUTO) 14.7 % (21.0-51.0); MEAN CORPUSCULAR HEMOGLOBIN 29.9 pg (27.0-34.0); MEAN CORPUSCULAR HGB CONC 33.1 g/dL (33.0-35.0); MEAN CORPUSCULAR VOLUME 90.4 fL (80.0-100.0); MONOCYTES # (AUTO) 0.4 x10^3/uL (0.3-0.8); MONOCYTES % (AUTO) 4.2 % (0.0-13.0); NEUTROPHILS # (AUTO) 7.1 x10^3/uL (2.2-4.8); NEUTROPHILS % (AUTO) 80.5 % (42.0-75.0); PLATELET COUNT 209 X10^3/uL (150.0-450.0); RED BLOOD COUNT 3.83 X10^6/uL (3.5-5.4); RED CELL DISTRIBUTION WIDTH 15.7 % (11.6-16.5); WHITE BLOOD COUNT 8.8 X10^3/uL (3.6-10.0)
[2024-12-24 05:24] LABS: ALANINE AMINOTRANSFERASE 12 Units/L (12-78); ALBUMIN 3.1 g/dL (3.4-5.0); ALKALINE PHOSPHATASE 96 Units/L (46-116); ASPARTATE AMINO TRANSFERASE 16 Units/L (15-37); BLOOD UREA NITROGEN 24 mg/dL (7-18); CALCIUM 8.8 mg/dL (8.5-10.1); CARBON DIOXIDE 27.2 mmol/L (21-32); CHLORIDE 106 mmol/L (98-107); COR CA(FOR HYPOALB) 9.5 mg/dL (8.5-10.1); CREATININE 1.12 mg/dL (0.55-1.02); GLUCOSE 98 mg/dL (65-99); POTASSIUM 4.7 mmol/L (3.5-5.1); SODIUM 141 mmol/L (136-145); TOTAL PROTEIN 6.3 g/dL (6.4-8.2); eGFR NON BLACK RACES 49 (>60)
[2024-12-24] MEDS: COREG TAB 6.25 MG PO SCH (08:22)
--- NOTE | 2024-12-24 11:20 | EKG ---
Test Reason : ams, seizure Blood Pressure : */* mmHG Vent. Rate : 65 BPM Atrial Rate : 65 BPM P-R Int : 152 ms QRS Dur : 72 ms QT Int : 396 ms P-R-T Axes : 3 -6 -1 degrees QTc Int : 411 ms Normal sinus rhythm Low voltage QRS Inferior infarct , age undetermined Cannot rule out Anterior infarct , age undetermined Abnormal ECG When compared with ECG of 21-SEP-2024 00:46, Minimal criteria for Anterior infarct are now present No significant change was found Confirmed by James Lozano MD ([id number]) on 12/25/2024 8:28:09 AM Referred By: Confirmed By: James Lozano MD
--- NOTE | 2024-12-24 13:27 | DR.H&P ---
H&P History & Physical for Day of: H&P Date: 12/23/24 Chief Complaint Chief Complaint: passed out, possible seizure per witness History of Present Illness History of Present Illness: PT IS 84 WF, ER ADMISSION WITH EPISODE OF SYNCOPE WITH SEIZURE LIKE ACTIVITY. PT WAS AN EMS ARRIVAL. PT HAS PMH OF CAD, HTN, OA AND HYPERLIPIDEMIA. PT HAD CT OF HEAD ON ARRIVAL TO [facility]. Past Medical History Past Medical History: Arthritis, Coronary Artery Disease, Dementia and Hypertension Past Surgical History Surgical History: Angioplasty/Stents, Hysterectomy and Tonsillectomy Family History Family Medical History: Cancer, Sudden Cardiac and Hypertension Social History Does patient currently use any type of tobacco product: Yes Have you used tobacco products in the last 12 months: No Type of Tobacco Use: Cigarettes Does any household member use tobacco: No Alcohol Use: None Drug Use: None Medications Home Medications: Home Medications Medication Instructions Recorded Confirmed Type atorvastatin 40 mg tablet 40 mg PO QDAY 12/23/24 12/23/24 History carvedilol 6.25 mg tablet 6.25 mg PO BID 12/23/24 12/23/24 History gabapentin 600 mg tablet 600 mg PO QID 12/23/24 12/23/24 History lansoprazole 30 mg capsule,delayed 30 mg PO BID 12/23/24 12/23/24 History release losartan 100 mg tablet 100 mg PO QDAY 12/23/24 12/23/24 History sertraline 100 mg tablet 100 mg PO QDAY 12/23/24 12/23/24 History Allergies Allergies Allergy/AdvReac Type Severity Reaction Status Date / Time codeine Allergy Verified 12/23/24 22:27 Labs 12/24/24 04:23 12/24/24 04:23 Labs: Laboratory WBC 8.8 X10^3/uL (3.6-10.0) 12/24/24 04:23 RBC 3.83 X10^6/uL (3.5-5.4) 12/24/24 04:23 Hgb 11.5 g/dL (12.0-16.0) L 12/24/24 04:23 Hct 34.7 % (36.0-47.0) L 12/24/24 04:23 MCV 90.4 fL (80.0-100.0) 12/24/24 04:23 MCH 29.9 pg (27.0-34.0) 12/24/24 04:23 MCHC 33.1 g/dL (33.0-35.0) 12/24/24 04:23 RDW 15.7 % (11.6-16.5) 12/24/24 04:23 Plt Count 209 X10^3/uL (150.0-450.0) 12/24/24 04:23 MPV 9.0 fL (7.4-11.0) 12/24/24 04:23 Neut % (Auto) 80.5 % (42.0-75.0) H 12/24/24 04:23 Lymph % (Auto) 14.7 % (21.0-51.0) L 12/24/24 04:23 [place] % (Auto) 4.2 % (0.0-13.0) 12/24/24 04:23 Eos % (Auto) 0.1 % (0.9-2.9) L 12/24/24 04:23 Baso % (Auto) 0.5 % (0.2-1.0) 12/24/24 04:23 Neut # (Auto) 7.1 x10^3/uL (2.2-4.8) H 12/24/24 04:23 Lymph # (Auto) 1.3 X10^3/uL (1.3-2.9) 12/24/24 04:23 [place] # (Auto) 0.4 x10^3/uL (0.3-0.8) 12/24/24 04:23 Eos # (Auto) 0.0 x10^3/uL (0.0-0.2) 12/24/24 04:23 Baso # (Auto) 0.0 X10^3/uL (0.0-0.1) 12/24/24 04:23 Absolute Nucleated RBC 0.1 /100WBC 12/24/24 04:23 PT 14.2 SECONDS (11.8-14.3) 12/23/24 22:43 INR Target Range - 12/23/24 22:43 INR 1.12 (0.8-1.3) 12/23/24 22:43 D-Dimer 1.01 ug/ml (0.0-0.57) H 12/23/24 22:43 Sodium 141 mmol/L (136-145) 12/24/24 04:23 Corrected Sodium TNP 12/24/24 04:23 Potassium 4.7 mmol/L (3.5-5.1) 12/24/24 04:23 Chloride 106 mmol/L (98-107) 12/24/24 04:23 Carbon Dioxide 27.2 mmol/L (21-32) 12/24/24 04:23 BUN 24 mg/dL (7-18) H 12/24/24 04:23 Creatinine 1.12 mg/dL (0.55-1.02) H 12/24/24 04:23 Est GFR (MDRD) Af Amer 59 (>60) 12/24/24 04:23 Est GFR (MDRD) Non-Af 49 (>60) L 12/24/24 04:23 Glucose 98 mg/dL (65-99) 12/24/24 04:23 Calcium 8.8 mg/dL (8.5-10.1) 12/24/24 04:23 Corrected Calcium 9.5 mg/dL (8.5-10.1) 12/24/24 04:23 Magnesium 2.0 mg/dL (2.0-2.9) 12/24/24 04:23 Total Bilirubin 0.30 mg/dL (0.2-1.0) 12/24/24 04:23 AST 16 Units/L (15-37) 12/24/24 04:23 ALT 12 Units/L (12-78) 12/24/24 04:23 Alkaline Phosphatase 96 Units/L (46-116) 12/24/24 04:23 Creatine Kinase 70 Units/L (26-192) 12/23/24 22:43 Troponin I High Sens 5.5 ng/L (4.0-60.0) 12/23/24 22:43 Total Protein 6.3 g/dL (6.4-8.2) L 12/24/24 04:23 Albumin 3.1 g/dL (3.4-5.0) L 12/24/24 04:23 Globulin 3.2 g/dL (2.5-4.5) 12/24/24 04:23 Albumin/Globulin Ratio 1.0 Ratio (1.1-2.1) L 12/24/24 04:23 Specimen Type Clean catch urine 12/23/24 22:37 Urine Color Pale yellow (YELLOW) 12/23/24 22:37 Urine Appearance Clear (CLEAR) 12/23/24 22: Urine pH 6.0 (5.0 - 8.0) 12/23/24 22:37 Ur Specific [place] 1.010 (1.000-1.030) 12/23/24 22:37 Urine Protein 1+ (NEGATIVE) 12/23/24 22: Urine Glucose (UA) Negative (NEGATIVE) 12/23/24 22: Urine Ketones Negative (NEGATIVE) 12/23/24 22: Urine Blood Negative (NEGATIVE) 12/23/24 22: Urine Nitrite Negative (NEGATIVE) 12/23/24 22: Urine Bilirubin Negative (NEGATIVE) 12/23/24 22: Urine Urobilinogen Normal (NORMAL) 12/23/24 22:37 Ur Leukocyte Esterase Negative (NEGATIVE) 12/23/24 22:37 Urine RBC None seen /HPF (0-3) 12/23/24 22:37 Urine WBC None seen /HPF (0-5) 12/23/24 22:37 Ur Squamous Epith Cells Rare /HPF (NEGATIVE) 12/23/24 22:37 Amorphous Sediment Trace /HPF (NEGATIVE) 12/23/24 22:37 Urine Bacteria Trace /HPF (NEGATIVE) 12/23/24 22:37 Ur Culture Indicated? No/not indicated 12/23/24 22:37 Review of Systems Constitutional: Weakness Eyes: No Symptoms Reported ENT: No Symptoms Reported Respiratory: No Symptoms Reported Cardiovascular: Edema Gastrointestinal: No Symptoms Reported Genitourinary: No Symptoms Reported Musculoskeletal: No Symptoms Reported Skin: No Symptoms Reported Neurological: Weakness and Confusion Physical Exam Vital Signs: Vital Signs Temperature 97.5 F Temperature 97.4 F Pulse Rate [Right Radial] 67 Pulse Rate [Right Radial] 69 Respiratory Rate 18 Respiratory Rate 18 Blood Pressure [Left Arm] 132/65 Blood Pressure [Left Arm] 136/63 O2 Sat by Pulse Oximetry 97 O2 Sat by Pulse Oximetry 98 Oriented: Person Eyes: Normal Nose: Normal Throat: Dry Respiratory: RLL Diminished and LLL Diminished Cardiovascular: Edema Auscultation: Bowel Sounds: Normal Palpation: Normal Tenderness: Normal Skin: Decreased Turgur Musculoskeletal: Swelling and Motor Deficit Psychiatric: Depression Mood Description: Depressed Speech Pattern: Clear and Inappropriate (PT WAS A POOR HISTORIAN) Assessment/Plan (1) Altered mental status: Qualifiers: Altered mental status type: disorientation Qualified Code(s): R41.0 - Disorientation, unspecified Status: Acute Plan: ADMIT, CT HEAD ON ADMISSION SERIAL CE AND EKG ECHO AND CAROTID FLP, CP CONTROL, TELEMETRY, GENTLE IV HYDRATION VERIFY HOME MEDICATIONS, PRN SUPPLEMENTAL O2 (2) DJD (degenerative joint disease), lumbosacral: Status: Acute (3) Traumatic rhabdomyolysis: Qualifiers: Encounter type: initial encounter Qualified Code(s): T79.6XXA - Traumatic ischemia of muscle, initial encounter Status: Acute (4) Dehydration: Status: Acute (5) Myoclonic seizure: Status: Acute (6) CAD (coronary artery disease): Status: Acute
[2024-12-24] MEDS ORDERED: PATIENT'S HOME MEDICATION (Losartan 100 mg tablet) PO SCH (13:30)
[2024-12-24] MEDS: PREVACID PO SCH (14:05)
[2024-12-25 05:13] LABS: ALANINE AMINOTRANSFERASE 11 Units/L (12-78); ALKALINE PHOSPHATASE 88 Units/L (46-116); ASPARTATE AMINO TRANSFERASE 22 Units/L (15-37); BASOPHILS % (AUTO) 0.4 % (0.2-1.0); BLOOD UREA NITROGEN 22 mg/dL (7-18); CALCIUM 8.6 mg/dL (8.5-10.1); CARBON DIOXIDE 28.2 mmol/L (21-32); CHLORIDE 105 mmol/L (98-107); CHOL/HDL RATIO 2.5 (0.0-5.0); CHOLESTEROL 157 mg/dL (0-200); COR CA(FOR HYPOALB) 9.4 mg/dL (8.5-10.1); CREATININE 1.22 mg/dL (0.55-1.02); EOSINOPHILS # (AUTO) 0.1 x10^3/uL (0.0-0.2); EOSINOPHILS % (AUTO) 0.8 % (0.9-2.9); GLUCOSE 96 mg/dL (65-99); HDL CHOLESTEROL 63 mg/dL (40-60); HEMATOCRIT 33.4 % (36.0-47.0); LYMPHOCYTES # (AUTO) 1.9 X10^3/uL (1.3-2.9); LYMPHOCYTES % (AUTO) 27.5 % (21.0-51.0); MEAN CORPUSCULAR HEMOGLOBIN 29.5 pg (27.0-34.0); MEAN CORPUSCULAR HGB CONC 32.9 g/dL (33.0-35.0); MEAN CORPUSCULAR VOLUME 89.7 fL (80.0-100.0); MEAN PLATELET VOLUME 8.9 fL (7.4-11.0); MONOCYTES # (AUTO) 0.6 x10^3/uL (0.3-0.8); MONOCYTES % (AUTO) 8.1 % (0.0-13.0); NEUTROPHILS # (AUTO) 4.4 x10^3/uL (2.2-4.8); NEUTROPHILS % (AUTO) 63.2 % (42.0-75.0); PLATELET COUNT 207 X10^3/uL (150.0-450.0); POTASSIUM 3.8 mmol/L (3.5-5.1); RED BLOOD COUNT 3.73 X10^6/uL (3.5-5.4); RED CELL DISTRIBUTION WIDTH 15.7 % (11.6-16.5); SODIUM 140 mmol/L (136-145); TOTAL PROTEIN 6.2 g/dL (6.4-8.2); TRIGLYCERIDES 84 mg/dL (0-150); WHITE BLOOD COUNT 6.9 X10^3/uL (3.6-10.0); eGFR NON BLACK RACES 44 (>60)
--- NOTE | 2024-12-25 06:42 | RAD ---
EXAMINATION: CHEST, 1 VIEW HISTORY: AMS; . COMPARISON STUDY: Chest x-ray 07/17/2024 TECHNIQUE: Single frontal view of the FINDINGS: Chest lungs are expanded. Patchy interstitial infiltrates left mid and lower lung field, right pulmo nary base. Borderline cardiac silhouette enlargement. Normal pulmonary vascular pattern. Bones are intact IMPRESSION: Subtle infiltrates in both lungs. THIS IS AN ELECTRONICALLY VERIFIED FINAL REPORT 12/25/2024 6:39 AM - Electronically signed by Magdalena Hummel MD
[2024-12-25] MEDS ORDERED: CONSULT PHARMACY - POTASSIUM & MAGNESIUM XX SCH (08:00)
[2024-12-25] MEDS: K-DUR TAB 20 MEQ PO SCH (09:27)
[2024-12-25] MEDS: MAG-OX TAB PO SCH (09:27)
[2024-12-25] MEDS: ROCEPHIN VIAL 1 GRAM 1 G in NS 100 ML IV 100 ML IV SCH (09:41)
[2024-12-25] MEDS: LIPITOR TAB 40 MG PO SCH (09:42)
[2024-12-25] MEDS: COZAAR PO SCH (09:42)
[2024-12-25] MEDS: XOPENEX 1.25 MG/3 ML NEBULE NEB SCH (09:44)
[2024-12-25] MEDS: PULMICORT NEB TX 0.5 MG NEB SCH (09:44)
[2024-12-26 04:45] LABS: BASOPHILS % (AUTO) 0.6 % (0.2-1.0); EOSINOPHILS # (AUTO) 0.1 x10^3/uL (0.0-0.2); EOSINOPHILS % (AUTO) 0.9 % (0.9-2.9); HEMATOCRIT 34.8 % (36.0-47.0); HEMOGLOBIN 11.6 g/dL (12.0-16.0); LYMPHOCYTES # (AUTO) 1.5 X10^3/uL (1.3-2.9); LYMPHOCYTES % (AUTO) 20.7 % (21.0-51.0); MEAN CORPUSCULAR HEMOGLOBIN 29.7 pg (27.0-34.0); MEAN CORPUSCULAR HGB CONC 33.3 g/dL (33.0-35.0); MEAN CORPUSCULAR VOLUME 89.1 fL (80.0-100.0); MEAN PLATELET VOLUME 8.7 fL (7.4-11.0); MONOCYTES # (AUTO) 0.7 x10^3/uL (0.3-0.8); MONOCYTES % (AUTO) 8.8 % (0.0-13.0); NEUTROPHILS # (AUTO) 5.1 x10^3/uL (2.2-4.8); PLATELET COUNT 209 X10^3/uL (150.0-450.0); RED CELL DISTRIBUTION WIDTH 15.7 % (11.6-16.5); WHITE BLOOD COUNT 7.4 X10^3/uL (3.6-10.0)
[2024-12-26 04:54] LABS: BLOOD UREA NITROGEN 16 mg/dL (7-18); CALCIUM 8.7 mg/dL (8.5-10.1); CHLORIDE 104 mmol/L (98-107); CREATININE 1.08 mg/dL (0.55-1.02); GLUCOSE 97 mg/dL (65-99); POTASSIUM 4.1 mmol/L (3.5-5.1); SODIUM 141 mmol/L (136-145); eGFR NON BLACK RACES 51 (>60)
[2024-12-26 04:56] LABS: MAGNESIUM 1.9 mg/dL (2.0-2.9)
[2024-12-26] MEDS ORDERED: CONSULT PHARMACY - POTASSIUM & MAGNESIUM XX SCH (05:00)
--- NOTE | 2024-12-26 05:42 | RAD ---
PROCEDURE: Chest X-ray 1 View.HISTORY: CAD, DEMENTIA, HTN, PULMONARY EDEMA ; ANGIO/STENTS, HYST, TONSILS .TECHNIQUE: AP portable view.COMPARISON: 12/24/2024.TECHNICAL QUALITY: Patient is rotated to the left that obscures the selene.FINDINGS:Unchanged heart size upper limits of normal.Mediastinum and hilar regions show no masses or lymphadenopathy.Normal central vascularity.No pulmonary consolidation, masses, pleural fluid, or pneumothorax.No acute bony abnormality.IMPRESSION:Unchanged heart size upper limits of normal with no other evidence of active disease.THIS IS AN ELECTRONICALLY VERIFIED FINAL REPORT12/26/2024 5:39 AM - Electronically signed by Toan Bernabe MD
[2024-12-26 06:51] LABS: ALANINE AMINOTRANSFERASE 17 Units/L (12-78); ALBUMIN 3.1 g/dL (3.4-5.0); ALKALINE PHOSPHATASE 93 Units/L (46-116); ASPARTATE AMINO TRANSFERASE 22 Units/L (15-37); COR CA(FOR HYPOALB) 9.4 mg/dL (8.5-10.1); TOTAL PROTEIN 6.7 g/dL (6.4-8.2)
[2024-12-26] MEDS: MAG-OX TAB PO SCH (08:49)
[2024-12-26] MEDS: LOVENOX INJ 40 MG SYR SC SCH (08:55)
--- NOTE | 2024-12-26 11:59 | VAS ---
EXAM:CAROTID USHISTORY:ro carotid artery disease; DEHYDRATION, ARF, CADCOMPARISON:None available.TECHNIQUE:Multiple felix scale, duplex and color flow Doppler images of the right and left carotid arterial system were obtained. The vertebral arterial system was evaluated as well.FINDINGS:Nonocclusive color flow Doppler is seen throughout the right and left carotid arterial system.There is moderate atherosclerotic plaque formation of the bilateral carotid bulbs and proximal ICAs with associated intimal thickening but without evidence for high-grade stenosis (>70%) or occlusion of the carotid arteries. The right and left vertebral artery demonstrate antegrade flow.There is patent flow and normal duplex waveforms within the right and left external carotid arteries.Peak right ICA velocity: 113 centimeter/seconds.Peak right CCA velocity: 110 centimeter/seconds.Right ICA to CCA ratio: 2.2.Peak left ICA velocity: 60 centimeter/seconds.Peak left CCA velocity: 83 centimeter/seconds.Left ICA to CCA ratio: 1.8.IMPRESSION:No hemodynamically significant carotid artery stenosis is seen.Moderate bilateral CCA and proximal ICA atherosclerosis.Appropriate, antegrade, vertebral arterial flow seen bilaterally.THIS IS AN ELECTRONICALLY VERIFIED FINAL REPORT12/26/2024 11:54 AM - Electronically signed by Terrance Sullivan MD
[2024-12-26] MEDS: ULTRAM PO PRN (12:20)
--- NOTE | 2024-12-26 13:28 | MRI ---
EXAM:BRAIN W&W/O CONHISTORY:SEIZURE CONTRAST- MULTIHANCE- 15CC INJECTED INTO RIGHT WRIST ;COMPARISON:Head CT 12/23/2024TECHNIQUE:Multiplanar multisequence MRI of the brain was obtained without and with contrast using standard departmental protocol.FINDINGS:Diffusion sequences show no abnormal signal. No evidence for acute ischemia.Age-related findings include central and cortical atrophy with abnormal signal in the periventricular white matter, most likely the micro-ischemic changes of aging. Otherwise felix and white matter have normal differentiation.There is no mass, shift, or hemorrhage. Cerebellar tonsils are at an appropriate level.There is normal signal flow void in the central vessels. No significant abnormal signal on susceptibility sequences.No fluid in the sinuses or mucosal thickening to suggest sinusitis. There is no mastoid effusion.With contrast, there is no abnormal enhancement.IMPRESSION:1. No acute findings2. No abnormal enhancementTHIS IS AN ELECTRONICALLY VERIFIED FINAL REPORT12/26/2024 1:25 PM - Electronically signed by Martinez James MD
[2024-12-26] MEDS: XOPENEX 1.25 MG/3 ML NEBULE NEB SCH (13:37)
[2024-12-27 04:58] LABS: BASOPHILS % (AUTO) 0.7 % (0.2-1.0); EOSINOPHILS # (AUTO) 0.1 x10^3/uL (0.0-0.2); HEMATOCRIT 34.1 % (36.0-47.0); HEMOGLOBIN 11.3 g/dL (12.0-16.0); LYMPHOCYTES # (AUTO) 1.9 X10^3/uL (1.3-2.9); LYMPHOCYTES % (AUTO) 30.7 % (21.0-51.0); MEAN CORPUSCULAR HEMOGLOBIN 29.8 pg (27.0-34.0); MEAN CORPUSCULAR HGB CONC 33.3 g/dL (33.0-35.0); MEAN CORPUSCULAR VOLUME 89.5 fL (80.0-100.0); MEAN PLATELET VOLUME 8.6 fL (7.4-11.0); MONOCYTES # (AUTO) 0.5 x10^3/uL (0.3-0.8); MONOCYTES % (AUTO) 8.3 % (0.0-13.0); NEUTROPHILS # (AUTO) 3.7 x10^3/uL (2.2-4.8); NEUTROPHILS % (AUTO) 58.3 % (42.0-75.0); PLATELET COUNT 221 X10^3/uL (150.0-450.0); RED BLOOD COUNT 3.81 X10^6/uL (3.5-5.4); RED CELL DISTRIBUTION WIDTH 15.7 % (11.6-16.5); WHITE BLOOD COUNT 6.3 X10^3/uL (3.6-10.0)
[2024-12-27 05:11] LABS: ALANINE AMINOTRANSFERASE 14 Units/L (12-78); ALBUMIN 2.9 g/dL (3.4-5.0); ALKALINE PHOSPHATASE 91 Units/L (46-116); ASPARTATE AMINO TRANSFERASE 20 Units/L (15-37); BLOOD UREA NITROGEN 18 mg/dL (7-18); CALCIUM 8.9 mg/dL (8.5-10.1); CARBON DIOXIDE 30.1 mmol/L (21-32); CHLORIDE 104 mmol/L (98-107); COR CA(FOR HYPOALB) 9.8 mg/dL (8.5-10.1); CREATININE 1.21 mg/dL (0.55-1.02); GLUCOSE 94 mg/dL (65-99); SODIUM 139 mmol/L (136-145); TOTAL PROTEIN 6.5 g/dL (6.4-8.2); eGFR NON BLACK RACES 45 (>60)
--- NOTE | 2024-12-27 14:43 | CT ---
EXAMINATION:CTA, CHESTHISTORY:elevated d-dimer;COMPARISON:None.TECHNIQUE:Contig uous axial CT images of the thorax following intravenous contrast. Images reviewed in the axial imaging plane with post processing thick slab MIP/3D volume images at a workstation.The above CT scan was done with automated exposure control and the mA and kV was adjusted to obtain quality images according to patient size.FINDINGS:The lungs are expanded. Small left pleural effusion. Patchy infiltrates in the posteroinferior left lower lobe. Linear shaped opacities in the lateral superior left lower lobe. Patchy infiltrates in the pulmonary apices. The central airways are patent.Mild multichamber cardiac enlargement. Coronary artery calcifications. Normal enhancement of the central pulmonary arteries, however, the more distal tertiary branch vessels of the pulmonary arteries in the lower lungs are not optimally visualized due to patient motion imaging artifacts. No evidence of thoracic aortic aneurysm or dissection. Scattered arterial vascular calcifications aorta and branch vessels.No pericardial effusion. No mediastinal or hilar adenopathy.[place] thoracic spondylosis.IMPRESSION:No evidence of thrombus within the main central pulmonary arteries, however, the more distal tertiary branch vessels of the pulmonary arteries in the lower lungs are not optimally visualized due to patient motion imaging artifacts.Small left pleural effusion. Patchy infiltrates in the posteroinferior left lower lobe. Linear shaped opacities lateral superior left lower lobe, both pulmonary apices.Cardiomegaly, coronary artery calcifications.THIS IS AN ELECTRONICALLY VERIFIED FINAL REPORT12/27/2024 2:41 PM - Electronically signed by Magdalena Hummel MD
--- NOTE | 2024-12-27 17:41 | PCM.PROG ---
Progress Note Progress Note for Day of Date of Exam: 12/27/24 Subjective Subjective: PT IS A 84 WF, ER ADMISSION WITH CO PT PASSED OUT WITH SEIZURE LIKE ACTIVITY WITH CONFUSION AND WEAKNESS. PT HAD A CT OF HEAD ON ADMISSION. PT HAS SERIAL CE AND EKG ON ADMISSION. PT HAD CXR WITH BILATERAL PNEUMONIA. PT WAS STARTED ON ROCEPHIN WITH AIT OBTAINED. PT WAS PLACED ON SUPPLEMENTAL O2 AT 2L, PT HAD A MRI REVEALING VASCULAR DISEASE, PT IS ALREADY ON A STATIN WITH BP CONTROL. PT HAS BEEN MORE AWAKE AND ALERT YESTERDAY AND TODAY, BUT CONTINUES WITH DIFFUSE WEAKNESS. PT HAS CONSULTED PT AND SHE WILL BENEFIT FROM REHAB THERAPY/SWING BED. PLAN TO CONSULT CASE MANAGEMENT FOR PLACEMENT Past Medical Family Social History Allergies: Allergies codeine Allergy (Verified 12/23/24 22:27) Vital Signs and I&O's Vital Signs: Vital Signs Temperature 98.3 F Temperature 97.4 F Pulse Rate [Right Radial] 66 Pulse Rate [Right Radial] 67 Respiratory Rate 17 Respiratory Rate 17 Blood Pressure [Left Arm] 155/74 Blood Pressure [Right Arm] 148/67 O2 Sat by Pulse Oximetry 94 O2 Sat by Pulse Oximetry 97 Intake and Output: Intake & Output 12/25/24 12/26/24 12/27/24 12/28/24 11:59 11:59 11:59 11:59 Intake Total 1029 / 1029 1010 / 1010 1050 / 1050 500 / 500 Output Total 1270 / 1270 1200 / 1200 640 / 640 Balance -241 / -241 -190 / -190 410 / 410 500 / 500 Physical Exam Oriented: Person Eyes: Normal Nose: Normal Throat: Dry Respiratory: Diminished Cardiovascular: Edema Auscultation: Bowel Sounds: Normal Tenderness: Normal Skin: Decreased Turgur Musculoskeletal: Swelling and Motor Deficit Psychiatric: Depression Mood Description: Depressed Speech Pattern: Clear and Appropriate Laboratory and Diagnostics 12/27/24 04:25 12/27/24 04:25 Labs: Laboratory WBC 6.3 X10^3/uL (3.6-10.0) 12/27/24 04:25 RBC 3.81 X10^6/uL (3.5-5.4) 12/27/24 04:25 Hgb 11.3 g/dL (12.0-16.0) L 12/27/24 04:25 Hct 34.1 % (36.0-47.0) L 12/27/24 04:25 MCV 89.5 fL (80.0-100.0) 12/27/24 04:25 MCH 29.8 pg (27.0-34.0) 12/27/24 04:25 MCHC 33.3 g/dL (33.0-35.0) 12/27/24 04:25 RDW 15.7 % (11.6-16.5) 12/27/24 04:25 Plt Count 221 X10^3/uL (150.0-450.0) 12/27/24 04:25 MPV 8.6 fL (7.4-11.0) 12/27/24 04:25 Neut % (Auto) 58.3 % (42.0-75.0) 12/27/24 04:25 Lymph % (Auto) 30.7 % (21.0-51.0) 12/27/24 04:25 Porter % (Auto) 8.3 % (0.0-13.0) 12/27/24 04:25 Eos % (Auto) 2.0 % (0.9-2.9) 12/27/24 04:25 Baso % (Auto) 0.7 % (0.2-1.0) 12/27/24 04:25 Neut # (Auto) 3.7 x10^3/uL (2.2-4.8) 12/27/24 04:25 Lymph # (Auto) 1.9 X10^3/uL (1.3-2.9) 12/27/24 04:25 Porter # (Auto) 0.5 x10^3/uL (0.3-0.8) 12/27/24 04:25 Eos # (Auto) 0.1 x10^3/uL (0.0-0.2) 12/27/24 04:25 Baso # (Auto) 0.0 X10^3/uL (0.0-0.1) 12/27/24 04:25 Absolute Nucleated RBC 0.0 /100WBC 12/27/24 04:25 PT 14.2 SECONDS (11.8-14.3) 12/23/24 22:43 INR Target Range - 12/23/24 22:43 INR 1.12 (0.8-1.3) 12/23/24 22:43 D-Dimer 1.01 ug/ml (0.0-0.57) H 12/23/24 22:43 Sodium 139 mmol/L (136-145) 12/27/24 04:25 Corrected Sodium TNP 12/27/24 04:25 Potassium 4.0 mmol/L (3.5-5.1) 12/27/24 04:25 Chloride 104 mmol/L (98-107) 12/27/24 04:25 Carbon Dioxide 30.1 mmol/L (21-32) 12/27/24 04:25 BUN 18 mg/dL (7-18) 12/27/24 04:25 Creatinine 1.21 mg/dL (0.55-1.02) H 12/27/24 04:25 Est GFR (MDRD) Af Amer 54 (>60) L 12/27/24 04:25 Est GFR (MDRD) Non-Af 45 (>60) L 12/27/24 04:25 Glucose 94 mg/dL (65-99) 12/27/24 04:25 Calcium 8.9 mg/dL (8.5-10.1) 12/27/24 04:25 Corrected Calcium 9.8 mg/dL (8.5-10.1) 12/27/24 04:25 Magnesium 2.0 mg/dL (2.0-2.9) 12/27/24 04:25 Total Bilirubin 0.20 mg/dL (0.2-1.0) 12/27/24 04:25 AST 20 Units/L (15-37) 12/27/24 04:25 ALT 14 Units/L (12-78) 12/27/24 04:25 Alkaline Phosphatase 91 Units/L (46-116) 12/27/24 04:25 Creatine Kinase 70 Units/L (26-192) 12/23/24 22:43 Troponin I High Sens 5.5 ng/L (4.0-60.0) 12/23/24 22:43 Total Protein 6.5 g/dL (6.4-8.2) 12/27/24 04:25 Albumin 2.9 g/dL (3.4-5.0) L 12/27/24 04:25 Globulin 3.6 g/dL (2.5-4.5) 12/27/24 04:25 Albumin/Globulin Ratio 0.8 Ratio (1.1-2.1) L 12/27/24 04:25 Triglycerides 84 mg/dL (0-150) 12/25/24 04:08 Cholesterol 157 mg/dL (0-200) 12/25/24 04:08 LDL Cholesterol, Calc 77 mg/dL (0-100) 12/25/24 04:08 HDL Cholesterol 63 mg/dL (40-60) H 12/25/24 04:08 Cholesterol/HDL Ratio 2.5 (0.0-5.0) 12/25/24 04:08 Specimen Type Clean catch urine 12/23/24 22:37 Urine Color Pale yellow (YELLOW) 12/23/24 22: Urine Appearance Clear (CLEAR) 12/23/24 22:37 Urine pH 6.0 (5.0 - 8.0) 12/23/24 22:37 Ur Specific [place] 1.010 (1.000-1.030) 12/23/24 22:37 Urine Protein 1+ (NEGATIVE) 12/23/24 22:37 Urine Glucose (UA) Negative (NEGATIVE) 12/23/24 22:37 Urine Ketones Negative (NEGATIVE) 12/23/24 22:37 Urine Blood Negative (NEGATIVE) 12/23/24 22: Urine Nitrite Negative (NEGATIVE) 12/23/24 22:37 Urine Bilirubin Negative (NEGATIVE) 12/23/24 22:37 Urine Urobilinogen Normal (NORMAL) 12/23/24 22:37 Ur Leukocyte Esterase Negative (NEGATIVE) 12/23/24 22:37 Urine RBC None seen /HPF (0-3) 12/23/24 22:37 Urine WBC None seen /HPF (0-5) 12/23/24 22:37 Ur Squamous Epith Cells Rare /HPF (NEGATIVE) 12/23/24 22:37 Amorphous Sediment Trace /HPF (NEGATIVE) 12/23/24 22:37 Urine Bacteria Trace /HPF (NEGATIVE) 12/23/24 22:37 Ur Culture Indicated? No/not indicated 12/23/24 22:37 Plan (1) Pneumonia: Status: Acute Plan: RESP THERAPY, SUPPLEMENTAL O2 IV ROCEPHIN (2) Altered mental status: Status: Acute Qualifiers: Altered mental status type: disorientation Qualified Code(s): R41.0 - Disorientation, unspecified Plan: CT HEAD ON ADMISSION SERIAL CE AND EKG ECHO AND CAROTID FLP, CP CONTROL, TELEMETRY, GENTLE IV HYDRATION VERIFY HOME MEDICATIONS, PRN SUPPLEMENTAL O2 (3) DJD (degenerative joint disease), lumbosacral: Status: Acute (4) Dehydration: Status: Acute (5) Myoclonic seizure: Status: Acute (6) CAD (coronary artery disease): Status: Acute
[2024-12-27] MEDS: MULTIHANCE INJ VIAL ONE (20:48)
[2024-12-27] MEDS: OMNIPAQUE 350 mg/mL 100 mL BTL 100 ML ONE (20:48)
[2024-12-28 04:15] VITALS: RESP 18
[2024-12-28 04:39] LABS: BASOPHILS % (AUTO) 0.8 % (0.2-1.0); EOSINOPHILS # (AUTO) 0.1 x10^3/uL (0.0-0.2); EOSINOPHILS % (AUTO) 2.1 % (0.9-2.9); HEMATOCRIT 35.4 % (36.0-47.0); HEMOGLOBIN 11.6 g/dL (12.0-16.0); LYMPHOCYTES # (AUTO) 1.4 X10^3/uL (1.3-2.9); LYMPHOCYTES % (AUTO) 22.5 % (21.0-51.0); MEAN CORPUSCULAR HEMOGLOBIN 29.4 pg (27.0-34.0); MEAN CORPUSCULAR HGB CONC 32.8 g/dL (33.0-35.0); MEAN CORPUSCULAR VOLUME 89.6 fL (80.0-100.0); MONOCYTES # (AUTO) 0.5 x10^3/uL (0.3-0.8); MONOCYTES % (AUTO) 8.3 % (0.0-13.0); NEUTROPHILS # (AUTO) 4.2 x10^3/uL (2.2-4.8); NEUTROPHILS % (AUTO) 66.3 % (42.0-75.0); PLATELET COUNT 232 X10^3/uL (150.0-450.0); RED BLOOD COUNT 3.95 X10^6/uL (3.5-5.4); RED CELL DISTRIBUTION WIDTH 15.9 % (11.6-16.5); WHITE BLOOD COUNT 6.4 X10^3/uL (3.6-10.0)
[2024-12-28 04:53] LABS: ALANINE AMINOTRANSFERASE 14 Units/L (12-78); ALBUMIN 2.9 g/dL (3.4-5.0); ALKALINE PHOSPHATASE 95 Units/L (46-116); ASPARTATE AMINO TRANSFERASE 24 Units/L (15-37); BLOOD UREA NITROGEN 18 mg/dL (7-18); CALCIUM 8.8 mg/dL (8.5-10.1); CARBON DIOXIDE 28.3 mmol/L (21-32); CHLORIDE 102 mmol/L (98-107); COR CA(FOR HYPOALB) 9.7 mg/dL (8.5-10.1); CREATININE 1.06 mg/dL (0.55-1.02); GLUCOSE 95 mg/dL (65-99); POTASSIUM 4.4 mmol/L (3.5-5.1); SODIUM 136 mmol/L (136-145); TOTAL PROTEIN 6.6 g/dL (6.4-8.2); eGFR NON BLACK RACES 52 (>60)
[2024-12-28 08:53] VITALS: BP 140/69; PULSE 70; TEMP 97.6
[2024-12-28 09:41] VITALS: O2SAT 96
== END 2024-12-28 09:59 | disposition swing bed (61) | DRG 194 ==
LOC: SUPCPDRO → ER 22:21 → MED/SURG 22:21 → OBSVTOIN 12-24 02:57 → MED/SURG 12-24 03:29
PROVIDERS: ADMIT Internal Medicine; ATTEND Internal Medicine
DX: E78.5 Hyperlipidemia, unspecified; R79.1 Abnormal coagulation profile; E83.42 Hypomagnesemia; G45.8 Other transient cerebral ischemic attacks and related syndromes; R55 Syncope and collapse; N17.8 Other acute kidney failure; M51.379 Other intervertebral disc degeneration, lumbosacral region without mention of lumbar back pain or lower extremity pain; R94.31 Abnormal electrocardiogram [ECG] [EKG]; I10 Essential (primary) hypertension; R73.09 Other abnormal glucose; G25.3 Myoclonus; R53.1 Weakness; M19.90 Unspecified osteoarthritis, unspecified site; J13 Pneumonia due to Streptococcus pneumoniae; Z72.0 Tobacco use; R26.89 Other abnormalities of gait and mobility

== ENCOUNTER 2024-12-28 10:00 | Inpatient (IN) ==
[2024-12-28] MEDS: XOPENEX 1.25 MG/3 ML NEBULE NEB SCH (13:41)
--- NOTE | 2024-12-28 15:27 | PT/OTEVAL ---
PT/OT OBJECTIVES - HISTORY Prescription: PT Consult Diagnosis: Pneumonia, TIA, Weakness Precautions: Fall Risk, Decreased Safety Awareness, Dementia, Confusion PMH: Arthritis, CAD, Dementia, HTN, Pulmonary Edema, Angio/Stents, Hysterectomy, Tonsillectomy Prior Level of Function: Assistance Required Other: Per patient report- she resides alone in single story home with 1 step to enter. Reports that she has been able to get around her house using a walker (with wheels) and that she does IADLs to her best ability. Does report having nurses into the house. DME: Eun Esteban B[employer]. Pt did have periods of confusion and no family preesnt at time of evaluation to confirm information. History of Present Illness: Ms. Hope is an 84 year old female who was adm itted to [facility] on 12/24/2024 due to change in mental status and possible seizure activity. Pt was also found to be dehydrated. Pt was also found to have pneumonia and TIA and when deemed medically stable, pt unable to safely discharge home at [facility] and was transitioned to swing bed rehab on 12/28/2024. - COGNITION Mental Status: Name, Confused, Decreased Safety Awarenes Communication Status: Verbal Ability to Follow Directions: 1 Step Affect: Calm - PAIN B Hips Pain Scale: Mild Comments: "You know my thighs, they're sore" Neck Pain Scale: Very Severe Comments: R posterior neck region - BED MOBILITY Rolling: Maximum - TRANSFERS Supine to Sit: Maximum Sit to Stand: Maximum Sit or Stand Pivot: Maximum Safety (requires cues for:): Hand Placement Precaution - BALANCE Dynamic Sitting: Fair Standing: Total Assist Static Sitting: Good Standing: Poor - NEUROMOTOR/SENSATION Adalberto. Lower Ext Sensation: WFL Coordination: WFL Proprioception: WFL - ROM Bilateral LE ROM: WFL Muscle Tone: WFL - STRENGTH Bilateral LE Strength Number: 3 Other comment: 01/11 - GAIT Pt. ambulates how many feet?: 5 Amount of Assistance Required: Maximum Type of Assistive Device: Rolling Walker - TREATMENT Date: 12/28/24 Time: 13:30 Treatment Type: Evaluation Treatment Provided: Therapeutic Activities, Therapeutic Excersises - TOTAL TREATMENT TIME Total Time: 60 - POST ASSESSMENT Post Assessment Comment: Pt was found supine in bed in room and agreeable to participation in PT services. Review of history and PLOF with pt unable to note any differences than received on acute care evaluation. Pt is more talkative this date and does report discomfort to B thighs/hips (R>L) but when questioned more about it states she has it all of the time and it's nothing new. Pt required max assist for transition from supine to sitting EOB. Once at EOB, mod/max assist to scoot forward. Pt able to tolerate sitting with UE support only x 1 minute before starting to lean to L and then required min assist for correct sitting posture. Pt max assist x 1 for sit to stand transfers from EOB with focus on proper hand placement and facilitation of COM over LALIT. Pt with standing tolerance of 1 minute before fatigue. Following prolonged seated therapeutic rest break- pt able to complete 4 additional sit to stand transfers with max assist. Pt able to side step at EOB with FWW and max assist for 5ft. Pt did require frequent therapeutic rest breaks throughout. Pt reports fatigue and assisted back to supine position in bed with max assist. Pt was then instructed in and completed BLE exercises to all joints in all available planes with AAROM for safety. Pt was left in bed with all needs met. Pt would benefit from continued participation in PT services to address deficits and facilitate highest level of function and safe discharge planning. - EXIT DISPOSITION Exit Position: BED Call light in reach: Yes Bed Alarm On: YES PT/OT ASSESSMENT - PT Problem List: Decreased Bed Mobility, Decreased Transfers, Decreased Gait, Decreased Balance, Decreased Safety, Decreased LE Strength - OT Problem List: Other - PT GOALS Short Term Goals Days: 10 Mobility: Pt will perform bed mobility tasks with min assist Transfers: Pt will perform functional transfers with min assist Gait: Pt will ambulate 50ft with FWW with min assist Balance: Pt will increase static sitting balance to good Others: Pt will increase static standing balance to fair+ [employer] Goals Days: 20 Mobility: Pt will perform bed mobility tasks with mod I Transfers: Pt will perform functional transfers with mod I Gait: Pt will ambulate 100ft with FWW and supervision Balance: Pt will increase static standing balance to good ROM/Strength: Pt will increase BLE strength to 4+/5 Others: Pt will ascend/descend 1 step with touch assist - PATIENT GOALS Patient/Family Goals: "We'll see what we can do" Rehabilitation Potential: Good to meet stated goals Justification for Potential: Facilitate highest level of function and safe discharge planning Weakness and Barriers: Cognitive Barrier If yes, explain: Dementia with decreased safety awareness and cognition - PLAN Suggested Treatment Plan: Bed Mobility Training, Therapeutic Activity, Gait Training, Neuro Re-education, Therapeutic Ex with HEP, Patient Education, Family Education - FREQUENCY AND DURATION PT: 5-6x per week x 20 days Expected Continuation of Care at Discharge: Home Health, Determined on Progress
[2024-12-28] MEDS: PULMICORT NEB TX 0.5 MG NEB SCH (20:08)
[2024-12-28] MEDS: PREVACID PO SCH (20:15)
[2024-12-28] MEDS: COREG TAB 6.25 MG PO SCH (20:15)
[2024-12-29 05:13] VITALS: BMI 24.7
[2024-12-29] MEDS: LIPITOR TAB 40 MG PO SCH (08:55)
[2024-12-29] MEDS: COZAAR PO SCH (08:55)
[2024-12-29] MEDS: LOVENOX INJ 40 MG SYR SC SCH (08:57)
[2024-12-29] MEDS: ROCEPHIN VIAL 1 GRAM 1 G in NS 100 ML IV 100 ML IV SCH (09:37)
--- NOTE | 2024-12-29 15:02 | PT/OTEVAL ---
PT/OT OBJECTIVES - HISTORY Prescription: OT Consult Diagnosis: Pneumonia, TIA, Weakness Precautions: Fall Risk, Decreased Safety Awareness, Dementia, Confusion PMH: Arthritis, CAD, Dementia, HTN, Pulmonary Edema, Angio/Stents, Hysterectomy, Tonsillectomy Prior Level of Function: Assistance Required Other: Per patient report- she resides alone in single story home with 1 step to enter. Reports that she has been able to get around her house using a walker (with wheels) and that she does IADLs to her best ability. Does report having nurses into the house. DME: Eun Esteban BSC. Pt did have periods of confusion and no family preesnt at time of evaluation to confirm information. History of Present Illness: Ms. Hope is an 84 year old female who was adm itted to [facility] on 12/24/2024 due to change in mental status and possible seizure activity. Pt was also found to be dehydrated. Pt was also found to have pneumonia and TIA and when deemed medically stable, pt unable to safely discharge home at [facility] and was transitioned to swing bed rehab on 12/28/2024. - COGNITION Mental Status: Name, Confused, Decreased Safety Awarenes Communication Status: Verbal Ability to Follow Directions: 1 Step Affect: Calm - PAIN Neck Pain Scale: Very Severe Comments: R posterior neck region B Hips Pain Scale: Mild Comments: "You know my thighs, they're sore" - BED MOBILITY Rolling: Maximum - TRANSFERS Supine to Sit: Maximum Sit to Stand: Maximum Sit or Stand Pivot: Maximum Safety (requires cues for:): Hand Placement Precaution - ADL'S Grooming: Maximum Upper Body ADL: Maximum Lower Body ADL: Maximum Toileting: Maximum Bathing: Maximum - BALANCE Dynamic Sitting: Fair Standing: Poor Static Sitting: Good Standing: Poor - NEUROMOTOR/SENSATION Adalberto. Lower Ext Sensation: WFL Coordination: WFL Proprioception: WFL Adalberto. Upper Ext Sensation: WFL Coordination: WFL - ROM Bilateral UE ROM: WFL - STRENGTH Bilateral UE Strength Number: 3 Other comment: 3+/5 Bilateral LE Strength Number: 3 Other comment: 3/5 - GAIT Pt. ambulates how many feet?: 15 Amount of assistance required: Maximum Type of Assistive Device: Rolling Walker - TREATMENT Date: 12/29/24 Time: 11:30 Treatment Type: Evaluation Treatment Provided: Other - TOTAL TREATMENT TIME Total Time: 90 - POST ASSESSMENT Post Assessment Comment: Pt was seen for skilled OT to assess CLOF. Pt was agreeable to participate with skilled OT and able to provide limited PLOF and hx. Pt required extensive A (max A) with bed mobility, and bathing/dressing. Pt sat EOB and completed bathing and dressing. STS from bed with max A and RW. Functionally AMB with max A. Pt agreeable to sit up in recliner, all needs met and call light within reach. Pt demonstrate deficits with ADLs and ADL functional mobility. Pt would benefit from skilled OT services to address ADL deficits to facilitate highest level of ADL function needed for safe d/c planning. - EXIT DISPOSITION Exit Position: CHAIR Call light in reach: Yes Bed Alarm On: YES Comments: Placed chair alarm on recliner. PT/OT ASSESSMENT - OT Problem List: Decreased Mobility ADL's, Decreased Safety Aware, Decreased Dressing, Decreased Bathing, Decreased Grooming, Decreased UE Strength - PT GOALS Short Term Goals Days: 10 Mobility: Pt will perform bed mobility tasks with min assist Transfers: Pt will perform functional transfers with min assist Gait: Pt will ambulate 50ft with FWW with min assist Balance: Pt will increase static sitting balance to good Others: Pt will increase static standing balance to fair+ Nursing Home Goals Days: 20 Mobility: Pt will perform bed mobility tasks with mod I Transfers: Pt will perform functional transfers with mod I Gait: Pt will ambulate 100ft with FWW and supervision Balance: Pt will increase static standing balance to good ROM/Strength: Pt will increase BLE strength to 4+/5 Others: Pt will ascend/descend 1 step with touch assist - OT GOALS Nursing Home Goals Days: 20 Mobility for ADL's: Pt to improve functional ADL transfers to supv A and LRAD Safety Awareness: Pt to improve safety awareness to G Dressing: Pt to improve LB dressing to supv A Bathing: Pt to improve overall bathing to supv A Grooming: Pt to improve grooming to (I) Upper Ext. Strength/Use: Pt to improve MMT in BUE by 1 grade Short Term Goals Mobility for ADL's: Pt to improve functional ADL transfers to touch A and LRAD Safety Awareness: Pt to improve safety awareness to F+ Dressing: Pt to improve LB dressing to touch A Bathing: Pt to improve overall bathing to min A Grooming: Pt to improve grooming to supv A Upper Ext. Strength/Use: - Other: Pt to improve FAT to G - PATIENT GOALS Patient/Family Goals: Pt is willing to try Goals Discussed with Patient/Family: Yes Rehabilitation Potential: Good to meet stated goals Justification for Potential: To facilitate highest level of ADL function needed for safe d/c planning. Weakness and Barriers: Cognitive Barrier If yes, explain: Dementia with decreased safety awareness. - PLAN Suggested Treatment Plan: Therapeutic Activity, Self Care Training, Neuro Re- education, Therapeutic Ex with HEP, Patient Education - FREQUENCY AND DURATION OT: 5x a week x 20 days Expected Continuation of Care at Discharge: Home Health, Determined on Progress
[2024-12-29] MEDS: OMNICEF CAP 300 MG PO SCH (15:10)
[2024-12-30 06:03] LABS: BASOPHILS # (AUTO) 0.1 X10^3/uL (0.0-0.1); BASOPHILS % (AUTO) 1.3 % (0.2-1.0); EOSINOPHILS # (AUTO) 0.1 x10^3/uL (0.0-0.2); HEMATOCRIT 35.5 % (36.0-47.0); HEMOGLOBIN 11.9 g/dL (12.0-16.0); LYMPHOCYTES # (AUTO) 1.6 X10^3/uL (1.3-2.9); LYMPHOCYTES % (AUTO) 25.7 % (21.0-51.0); MEAN CORPUSCULAR HGB CONC 33.6 g/dL (33.0-35.0); MEAN CORPUSCULAR VOLUME 89.3 fL (80.0-100.0); MEAN PLATELET VOLUME 8.2 fL (7.4-11.0); MONOCYTES # (AUTO) 0.6 x10^3/uL (0.3-0.8); MONOCYTES % (AUTO) 9.8 % (0.0-13.0); NEUTROPHILS # (AUTO) 3.8 x10^3/uL (2.2-4.8); NEUTROPHILS % (AUTO) 61.2 % (42.0-75.0); PLATELET COUNT 252 X10^3/uL (150.0-450.0); RED BLOOD COUNT 3.98 X10^6/uL (3.5-5.4); RED CELL DISTRIBUTION WIDTH 15.5 % (11.6-16.5); WHITE BLOOD COUNT 6.2 X10^3/uL (3.6-10.0)
[2024-12-30 06:33] LABS: ALBUMIN 2.9 g/dL (3.4-5.0); ALKALINE PHOSPHATASE 96 Units/L (46-116); ASPARTATE AMINO TRANSFERASE 18 Units/L (15-37); BLOOD UREA NITROGEN 21 mg/dL (7-18); CARBON DIOXIDE 27.3 mmol/L (21-32); CHLORIDE 104 mmol/L (98-107); COR CA(FOR HYPOALB) 9.9 mg/dL (8.5-10.1); CREATININE 0.96 mg/dL (0.55-1.02); GLUCOSE 99 mg/dL (65-99); POTASSIUM 3.6 mmol/L (3.5-5.1); SODIUM 139 mmol/L (136-145); TOTAL PROTEIN 6.6 g/dL (6.4-8.2); eGFR NON BLACK RACES 59 (>60)
[2024-12-30 06:47] LABS: ALANINE AMINOTRANSFERASE 17 Units/L (12-78)
[2024-12-30] MEDS ORDERED: CONSULT PHARMACY - POTASSIUM & MAGNESIUM XX SCH (21:00)
[2024-12-31] MEDS ORDERED: MAG-OX TAB ONE (12:25)
[2024-12-31] MEDS: MAG-OX TAB PO SCH (12:46)
[2024-12-31] MEDS: K-DUR TAB 20 MEQ PO SCH (12:47)
[2024-12-31] MEDS: COLACE CAP 100 MG PO PRN (20:42)
[2024-12-31] MEDS: MILK OF MAGNESIA PO PRN (20:45)
[2024-12-31] MEDS: ULTRAM PO PRN (20:46)
[2025-01-01] MEDS: LIPITOR TAB 40 MG PO SCH (20:42)
[2025-01-02 06:05] LABS: BASOPHILS # (AUTO) 0.1 X10^3/uL (0.0-0.1); BASOPHILS % (AUTO) 0.8 % (0.2-1.0); EOSINOPHILS # (AUTO) 0.1 x10^3/uL (0.0-0.2); EOSINOPHILS % (AUTO) 1.9 % (0.9-2.9); HEMOGLOBIN 12.3 g/dL (12.0-16.0); LYMPHOCYTES % (AUTO) 30.2 % (21.0-51.0); MEAN CORPUSCULAR HEMOGLOBIN 29.8 pg (27.0-34.0); MEAN CORPUSCULAR HGB CONC 33.3 g/dL (33.0-35.0); MEAN CORPUSCULAR VOLUME 89.3 fL (80.0-100.0); MEAN PLATELET VOLUME 8.2 fL (7.4-11.0); MONOCYTES # (AUTO) 0.6 x10^3/uL (0.3-0.8); MONOCYTES % (AUTO) 9.3 % (0.0-13.0); NEUTROPHILS # (AUTO) 3.9 x10^3/uL (2.2-4.8); NEUTROPHILS % (AUTO) 57.8 % (42.0-75.0); PLATELET COUNT 293 X10^3/uL (150.0-450.0); RED BLOOD COUNT 4.15 X10^6/uL (3.5-5.4); RED CELL DISTRIBUTION WIDTH 15.6 % (11.6-16.5); WHITE BLOOD COUNT 6.7 X10^3/uL (3.6-10.0)
[2025-01-02 06:47] LABS: ALANINE AMINOTRANSFERASE 15 Units/L (12-78); ALBUMIN 2.9 g/dL (3.4-5.0); ALKALINE PHOSPHATASE 98 Units/L (46-116); ASPARTATE AMINO TRANSFERASE 16 Units/L (15-37); BLOOD UREA NITROGEN 19 mg/dL (7-18); CALCIUM 8.9 mg/dL (8.5-10.1); CARBON DIOXIDE 29.7 mmol/L (21-32); CHLORIDE 101 mmol/L (98-107); COR CA(FOR HYPOALB) 9.8 mg/dL (8.5-10.1); GLUCOSE 89 mg/dL (65-99); MAGNESIUM 2.3 mg/dL (2.0-2.9); POTASSIUM 3.9 mmol/L (3.5-5.1); SODIUM 136 mmol/L (136-145); TOTAL PROTEIN 6.7 g/dL (6.4-8.2); eGFR NON BLACK RACES 56 (>60)
--- NOTE | 2025-01-03 12:13 | CT ---
EXAM:CT pelvis without contrastHISTORY:Pelvic painTECHNIQUE:Axial noncontrast images with coronal and sagittal reformats. Dose reduction procedures were used with mA/kv adjusted for body size.COMPARISON:07/17/2024FINDINGS:No pelvic masses, pelvic fluid, or pelvic lymphadenopathy is identified. There is sigmoid diverticulosis without evidence for diverticulitis. No bladder abnormalities identified. The sacrum, coccyx, and SI joints are intact. Pelvic bones are intact. Hip joints are bilaterally intact. No joint erosions are identified. Proximal femurs are intact. In the intertrochanteric region of the left proximal femur there is a well marginated 4.6 x 2.4 cm lucent lesion with a well-defined sclerotic this is unchanged when compared with the prior examination 07/17/2024. It has benign characteristics however nuclear medicine bone scan is recommended in order to a significant active process such as neoplasm.IMPRESSION:No pelvic soft tissue abnormality identified to the limitations of an examination performedNo pelvic or hip fractures identified4.6 x 2.4 cm lucent lesion with sclerotic margin in the intertrochanteric region of the left proximal femur for which nuclear medicine bone scan is recommended to entirely exclude a significant active process such as neoplasmTHIS IS AN ELECTRONICALLY VERIFIED FINAL REPORT01/03/2025 12:10 PM - Electronically signed by Judah Cheek MD
[2025-01-04] MEDS: ZOFRAN INJ 4 MG VIAL IVP PRN (14:45)
--- NOTE | 2025-01-04 16:27 | NM ---
EXAM:BONE SCAN WHOLE BODYHISTORY:see comments on CT report 01/03/2025; 21.2mCi 99mTc MDPCOMPARISON:NoneTECHNIQUE:21.2 mCi Tc-99m MDP were injected intravenously. Whole body images were obtained at 3 hours.FINDINGS:There is no abnormal uptake in the proximal left femur where the lytic bone lesion is seen. This suggests a benign diagnosis.Patient has scoliosis. There is multifocal uptake consistent with degenerative change in the thoracic and lumbar spine.Focal uptake in the elbows is likely degenerative.There is also focal uptake in the medial compartment left knee consistent with degenerative change.There is no abnormality that might suggest metastatic disease.The distribution of activity in the urinary collecting system is normal.IMPRESSION:1. No significant uptake in the proximal left femurTHIS IS AN ELECTRONICALLY VERIFIED FINAL REPORT01/04/2025 4:23 PM - Electronically signed by Martinez James MD
[2025-01-05 06:25] LABS: BASOPHILS # (AUTO) 0.1 X10^3/uL (0.0-0.1); BASOPHILS % (AUTO) 0.8 % (0.2-1.0); EOSINOPHILS # (AUTO) 0.1 x10^3/uL (0.0-0.2); HEMATOCRIT 36.5 % (36.0-47.0); HEMOGLOBIN 12.2 g/dL (12.0-16.0); LYMPHOCYTES # (AUTO) 2.3 X10^3/uL (1.3-2.9); LYMPHOCYTES % (AUTO) 33.9 % (21.0-51.0); MEAN CORPUSCULAR HEMOGLOBIN 29.9 pg (27.0-34.0); MEAN CORPUSCULAR HGB CONC 33.4 g/dL (33.0-35.0); MEAN CORPUSCULAR VOLUME 89.5 fL (80.0-100.0); MEAN PLATELET VOLUME 8.3 fL (7.4-11.0); MONOCYTES # (AUTO) 0.6 x10^3/uL (0.3-0.8); MONOCYTES % (AUTO) 8.6 % (0.0-13.0); NEUTROPHILS # (AUTO) 3.7 x10^3/uL (2.2-4.8); NEUTROPHILS % (AUTO) 54.7 % (42.0-75.0); PLATELET COUNT 325 X10^3/uL (150.0-450.0); RED BLOOD COUNT 4.08 X10^6/uL (3.5-5.4); RED CELL DISTRIBUTION WIDTH 15.5 % (11.6-16.5); WHITE BLOOD COUNT 6.8 X10^3/uL (3.6-10.0)
[2025-01-05 06:46] LABS: ALANINE AMINOTRANSFERASE 18 Units/L (12-78); ALKALINE PHOSPHATASE 100 Units/L (46-116); ASPARTATE AMINO TRANSFERASE 15 Units/L (15-37); BLOOD UREA NITROGEN 25 mg/dL (7-18); CALCIUM 9.1 mg/dL (8.5-10.1); CARBON DIOXIDE 29.1 mmol/L (21-32); CHLORIDE 102 mmol/L (98-107); COR CA(FOR HYPOALB) 9.9 mg/dL (8.5-10.1); CREATININE 1.14 mg/dL (0.55-1.02); GLUCOSE 82 mg/dL (65-99); SODIUM 139 mmol/L (136-145); TOTAL PROTEIN 6.8 g/dL (6.4-8.2); eGFR NON BLACK RACES 48 (>60)
[2025-01-06] MEDS: PEPCID TAB 20 MG PO ONE (17:32)
[2025-01-06] MEDS: ZOFRAN INJ 4 MG VIAL IM ONE (17:33)
[2025-01-09 05:14] LABS: BASOPHILS # (AUTO) 0.1 X10^3/uL (0.0-0.1); EOSINOPHILS # (AUTO) 0.1 x10^3/uL (0.0-0.2); EOSINOPHILS % (AUTO) 1.3 % (0.9-2.9); HEMOGLOBIN 12.6 g/dL (12.0-16.0); LYMPHOCYTES # (AUTO) 1.8 X10^3/uL (1.3-2.9); LYMPHOCYTES % (AUTO) 26.7 % (21.0-51.0); MEAN CORPUSCULAR HEMOGLOBIN 29.3 pg (27.0-34.0); MEAN CORPUSCULAR HGB CONC 33.1 g/dL (33.0-35.0); MEAN CORPUSCULAR VOLUME 88.5 fL (80.0-100.0); MEAN PLATELET VOLUME 8.6 fL (7.4-11.0); MONOCYTES # (AUTO) 0.6 x10^3/uL (0.3-0.8); MONOCYTES % (AUTO) 8.7 % (0.0-13.0); NEUTROPHILS # (AUTO) 4.1 x10^3/uL (2.2-4.8); NEUTROPHILS % (AUTO) 62.3 % (42.0-75.0); PLATELET COUNT 343 X10^3/uL (150.0-450.0); RED CELL DISTRIBUTION WIDTH 14.9 % (11.6-16.5); WHITE BLOOD COUNT 6.6 X10^3/uL (3.6-10.0)
[2025-01-09 05:29] LABS: ALANINE AMINOTRANSFERASE 19 Units/L (12-78); ALBUMIN 3.3 g/dL (3.4-5.0); ALKALINE PHOSPHATASE 104 Units/L (46-116); ASPARTATE AMINO TRANSFERASE 17 Units/L (15-37); BLOOD UREA NITROGEN 17 mg/dL (7-18); CALCIUM 9.1 mg/dL (8.5-10.1); CHLORIDE 102 mmol/L (98-107); COR CA(FOR HYPOALB) 9.7 mg/dL (8.5-10.1); CREATININE 1.07 mg/dL (0.55-1.02); GLUCOSE 85 mg/dL (65-99); POTASSIUM 3.9 mmol/L (3.5-5.1); SODIUM 137 mmol/L (136-145); TOTAL PROTEIN 7.1 g/dL (6.4-8.2); eGFR NON BLACK RACES 52 (>60)
[2025-01-09] MEDS: CONSULT PHARMACY - POTASSIUM & MAGNESIUM XX SCH (07:19)
[2025-01-11 06:54] LABS: BASOPHILS # (AUTO) 0.1 X10^3/uL (0.0-0.1); BASOPHILS % (AUTO) 0.9 % (0.2-1.0); EOSINOPHILS # (AUTO) 0.1 x10^3/uL (0.0-0.2); EOSINOPHILS % (AUTO) 1.3 % (0.9-2.9); HEMATOCRIT 35.7 % (36.0-47.0); LYMPHOCYTES % (AUTO) 27.8 % (21.0-51.0); MEAN CORPUSCULAR HGB CONC 33.7 g/dL (33.0-35.0); MEAN CORPUSCULAR VOLUME 88.9 fL (80.0-100.0); MEAN PLATELET VOLUME 8.5 fL (7.4-11.0); MONOCYTES # (AUTO) 0.5 x10^3/uL (0.3-0.8); MONOCYTES % (AUTO) 7.5 % (0.0-13.0); NEUTROPHILS # (AUTO) 4.4 x10^3/uL (2.2-4.8); NEUTROPHILS % (AUTO) 62.5 % (42.0-75.0); PLATELET COUNT 303 X10^3/uL (150.0-450.0); RED BLOOD COUNT 4.02 X10^6/uL (3.5-5.4); RED CELL DISTRIBUTION WIDTH 15.8 % (11.6-16.5); WHITE BLOOD COUNT 7.1 X10^3/uL (3.6-10.0)
[2025-01-11 07:05] LABS: ALANINE AMINOTRANSFERASE 18 Units/L (12-78); ALKALINE PHOSPHATASE 95 Units/L (46-116); ASPARTATE AMINO TRANSFERASE 14 Units/L (15-37); BLOOD UREA NITROGEN 20 mg/dL (7-18); CALCIUM 8.9 mg/dL (8.5-10.1); CARBON DIOXIDE 26.9 mmol/L (21-32); CHLORIDE 104 mmol/L (98-107); COR CA(FOR HYPOALB) 9.7 mg/dL (8.5-10.1); CREATININE 1.05 mg/dL (0.55-1.02); GLUCOSE 90 mg/dL (65-99); SODIUM 139 mmol/L (136-145); TOTAL PROTEIN 6.5 g/dL (6.4-8.2); eGFR NON BLACK RACES 53 (>60)
[2025-01-12] MEDS: ZOFRAN TAB 4 MG SL PRN (10:31)
[2025-01-13 06:32] LABS: BASOPHILS % (AUTO) 0.8 % (0.2-1.0); EOSINOPHILS # (AUTO) 0.1 x10^3/uL (0.0-0.2); EOSINOPHILS % (AUTO) 1.8 % (0.9-2.9); HEMATOCRIT 34.6 % (36.0-47.0); HEMOGLOBIN 11.6 g/dL (12.0-16.0); LYMPHOCYTES # (AUTO) 2.1 X10^3/uL (1.3-2.9); LYMPHOCYTES % (AUTO) 32.9 % (21.0-51.0); MEAN CORPUSCULAR HEMOGLOBIN 29.9 pg (27.0-34.0); MEAN CORPUSCULAR HGB CONC 33.6 g/dL (33.0-35.0); MEAN CORPUSCULAR VOLUME 89.2 fL (80.0-100.0); MEAN PLATELET VOLUME 8.6 fL (7.4-11.0); MONOCYTES # (AUTO) 0.5 x10^3/uL (0.3-0.8); MONOCYTES % (AUTO) 7.7 % (0.0-13.0); NEUTROPHILS # (AUTO) 3.6 x10^3/uL (2.2-4.8); NEUTROPHILS % (AUTO) 56.8 % (42.0-75.0); PLATELET COUNT 309 X10^3/uL (150.0-450.0); RED BLOOD COUNT 3.88 X10^6/uL (3.5-5.4); RED CELL DISTRIBUTION WIDTH 15.4 % (11.6-16.5); WHITE BLOOD COUNT 6.3 X10^3/uL (3.6-10.0)
[2025-01-13 06:45] LABS: ALANINE AMINOTRANSFERASE 14 Units/L (12-78); ALKALINE PHOSPHATASE 92 Units/L (46-116); ASPARTATE AMINO TRANSFERASE 14 Units/L (15-37); BLOOD UREA NITROGEN 20 mg/dL (7-18); CALCIUM 8.9 mg/dL (8.5-10.1); CARBON DIOXIDE 27.7 mmol/L (21-32); CHLORIDE 103 mmol/L (98-107); COR CA(FOR HYPOALB) 9.7 mg/dL (8.5-10.1); CREATININE 1.04 mg/dL (0.55-1.02); GLUCOSE 88 mg/dL (65-99); SODIUM 137 mmol/L (136-145); TOTAL PROTEIN 6.3 g/dL (6.4-8.2); eGFR NON BLACK RACES 53 (>60)
--- NOTE | 2025-01-14 13:39 | PCM.PROG ---
Progress Note Progress Note for Day of Date of Exam: 01/14/25 Subjective Subjective: Patient seen at bedside, no acute events overnight. She is currently swing bed status for physical therapy due to generalized weakness. She reports having some nausea yesterday. Denies any vomiting. Discussed with patient that she does have Zofran as needed. Labs/imaging reviewed -Hemoglobin 11.6 WBC 6.3 creatinine 1.04 potassium 4.0 Plan: Continue physical therapy as tolerated. Continue home medications. Zofran as needed. Monitor labs as needed. Past Medical Family Social History Allergies: Allergies codeine Allergy (Verified 12/23/24 22:27) Vital Signs and I&O's Vital Signs: Vital Signs Temperature 97.2 F Pulse Rate [Brachial] 72 Pulse Rate 68 Respiratory Rate 19 Blood Pressure [Right Arm] 160/75 O2 Sat by Pulse Oximetry 98 O2 Sat by Pulse Oximetry 97 Intake and Output: Intake & Output 01/11/25 01/12/25 01/13/25 01/14/25 23:59 23:59 23:59 23:59 Intake Total 120 / 120 120 / 120 550 / 550 1136 / 1136 Balance 120 / 120 120 / 120 550 / 550 1136 / 1136 Physical Exam Oriented: Normal Eyes: Normal Throat: Normal Respiratory: Normal Cardiovascular: Normal Auscultation: Bowel Sounds: Normal Palpation: Normal Tenderness: Normal Skin: Normal Musculoskeletal: Normal Psychiatric: Normal Mood Description: Calm Affect: Normal Speech Pattern: Clear and Appropriate Laboratory and Diagnostics 01/13/25 06:01 01/13/25 06:01 Labs: Laboratory WBC 6.3 X10^3/uL (3.6-10.0) 01/13/25 06:01 RBC 3.88 X10^6/uL (3.5-5.4) 01/13/25 06:01 Hgb 11.6 g/dL (12.0-16.0) L 01/13/25 06:01 Hct 34.6 % (36.0-47.0) L 01/13/25 06:01 MCV 89.2 fL (80.0-100.0) 01/13/25 06:01 MCH 29.9 pg (27.0-34.0) 01/13/25 06:01 MCHC 33.6 g/dL (33.0-35.0) 01/13/25 06:01 RDW 15.4 % (11.6-16.5) 01/13/25 06:01 Plt Count 309 X10^3/uL (150.0-450.0) 01/13/25 06:01 MPV 8.6 fL (7.4-11.0) 01/13/25 06:01 Neut % (Auto) 56.8 % (42.0-75.0) 01/13/25 06:01 Lymph % (Auto) 32.9 % (21.0-51.0) 01/13/25 06:01 Payne % (Auto) 7.7 % (0.0-13.0) 01/13/25 06:01 Eos % (Auto) 1.8 % (0.9-2.9) 01/13/25 06:01 Baso % (Auto) 0.8 % (0.2-1.0) 01/13/25 06:01 Neut # (Auto) 3.6 x10^3/uL (2.2-4.8) 01/13/25 06:01 Lymph # (Auto) 2.1 X10^3/uL (1.3-2.9) 01/13/25 06:01 Payne # (Auto) 0.5 x10^3/uL (0.3-0.8) 01/13/25 06:01 Eos # (Auto) 0.1 x10^3/uL (0.0-0.2) 01/13/25 06:01 Baso # (Auto) 0.0 X10^3/uL (0.0-0.1) 01/13/25 06:01 Absolute Nucleated RBC 0.1 /100WBC 01/13/25 06:01 Sodium 137 mmol/L (136-145) 01/13/25 06:01 Corrected Sodium TNP 01/13/25 06:01 Potassium 4.0 mmol/L (3.5-5.1) 01/13/25 06:01 Chloride 103 mmol/L (98-107) 01/13/25 06:01 Carbon Dioxide 27.7 mmol/L (21-32) 01/13/25 06:01 BUN 20 mg/dL (7-18) H 01/13/25 06:01 Creatinine 1.04 mg/dL (0.55-1.02) H 01/13/25 06:01 Est GFR (MDRD) Af Amer > 60 (>60) 01/13/25 06:01 Est GFR (MDRD) Non-Af 53 (>60) L 01/13/25 06:01 Glucose 88 mg/dL (65-99) 01/13/25 06:01 POC Glucose (mg/dL) 96 mg/dL (65-99) 01/12/25 11:45 Calcium 8.9 mg/dL (8.5-10.1) 01/13/25 06:01 Corrected Calcium 9.7 mg/dL (8.5-10.1) 01/13/25 06:01 Magnesium 2.3 mg/dL (2.0-2.9) 01/02/25 05:25 Total Bilirubin 0.30 mg/dL (0.2-1.0) 01/13/25 06:01 AST 14 Units/L (15-37) L 01/13/25 06:01 ALT 14 Units/L (12-78) 01/13/25 06:01 Alkaline Phosphatase 92 Units/L (46-116) 01/13/25 06:01 Total Protein 6.3 g/dL (6.4-8.2) L 01/13/25 06:01 Albumin 3.0 g/dL (3.4-5.0) L 01/13/25 06:01 Globulin 3.3 g/dL (2.5-4.5) 01/13/25 06:01 Albumin/Globulin Ratio 0.9 Ratio (1.1-2.1) L 01/13/25 06:01 Plan (1) Generalized weakness: Status: Acute (2) Physical deconditioning: Status: Acute (3) Frequent falls: Status: Acute (4) Dehydration: Status: Acute
[2025-01-16 05:55] LABS: BASOPHILS # (AUTO) 0.1 X10^3/uL (0.0-0.1); BASOPHILS % (AUTO) 1.3 % (0.2-1.0); EOSINOPHILS # (AUTO) 0.1 x10^3/uL (0.0-0.2); EOSINOPHILS % (AUTO) 1.7 % (0.9-2.9); HEMATOCRIT 35.7 % (36.0-47.0); LYMPHOCYTES # (AUTO) 2.5 X10^3/uL (1.3-2.9); LYMPHOCYTES % (AUTO) 31.7 % (21.0-51.0); MEAN CORPUSCULAR HGB CONC 33.6 g/dL (33.0-35.0); MEAN CORPUSCULAR VOLUME 89.2 fL (80.0-100.0); MEAN PLATELET VOLUME 9.5 fL (7.4-11.0); MONOCYTES # (AUTO) 0.6 x10^3/uL (0.3-0.8); MONOCYTES % (AUTO) 7.5 % (0.0-13.0); NEUTROPHILS # (AUTO) 4.6 x10^3/uL (2.2-4.8); NEUTROPHILS % (AUTO) 57.8 % (42.0-75.0); PLATELET COUNT 275 X10^3/uL (150.0-450.0); RED CELL DISTRIBUTION WIDTH 15.5 % (11.6-16.5)
[2025-01-16 06:27] LABS: ALANINE AMINOTRANSFERASE 17 Units/L (12-78); ALBUMIN 3.1 g/dL (3.4-5.0); ALKALINE PHOSPHATASE 90 Units/L (46-116); ASPARTATE AMINO TRANSFERASE 18 Units/L (15-37); BLOOD UREA NITROGEN 20 mg/dL (7-18); CALCIUM 8.9 mg/dL (8.5-10.1); CARBON DIOXIDE 27.6 mmol/L (21-32); CHLORIDE 105 mmol/L (98-107); COR CA(FOR HYPOALB) 9.6 mg/dL (8.5-10.1); CREATININE 0.91 mg/dL (0.55-1.02); GLUCOSE 92 mg/dL (65-99); POTASSIUM 3.9 mmol/L (3.5-5.1); SODIUM 140 mmol/L (136-145); TOTAL PROTEIN 6.5 g/dL (6.4-8.2); eGFR NON BLACK RACES > 60 (>60)
[2025-01-16 07:46] LABS: PLATELET MORPHOLOGY COMMENT NORMAL (NORMAL)
[2025-01-17 08:10] VITALS: BP 124/61; PULSE 67; RESP 15; TEMP 98.3; O2SAT 96
[2025-01-17] MEDS: XOPENEX 1.25 MG/3 ML NEBULE NEB SCH (09:33)
== END 2025-01-17 19:55 | disposition home or self-care (01) | DRG 194 ==
LOC: MED/SURG 10:00
PROVIDERS: ADMIT Internal Medicine; ATTEND Internal Medicine
DX: Z51.89 Encounter for other specified aftercare; R62.7 Adult failure to thrive; E86.0 Dehydration; R29.6 Repeated falls; F05 Delirium due to known physiological condition; Z91.81 History of falling; J13 Pneumonia due to Streptococcus pneumoniae; R53.81 Other malaise; E83.42 Hypomagnesemia; I10 Essential (primary) hypertension; R53.1 Weakness; M25.551 Pain in right hip; I25.10 Atherosclerotic heart disease of native coronary artery without angina pectoris; F03.90 Unspecified dementia, unspecified severity, without behavioral disturbance, psychotic disturbance, mood disturbance, and anxiety; R10.2 Pelvic and perineal pain; R06.02 Shortness of breath; I69.898 Other sequelae of other cerebrovascular disease; R93.89 Abnormal findings on diagnostic imaging of other specified body structures